=== PATIENT | female | born 1970 | race Caucasian/White ===

== ENCOUNTER 2023-06-26 14:00 | Outpatient (RCR) | payer OTHER, SELFPAY ==
--- NOTE | ~2023-06-26 | XR_ITS ---
EXAMINATION: XR CHEST CLINICAL INFORMATION: Preprocedural evaluation COMPARISON: None available. TECHNIQUE: 2 views of the chest were obtained. FINDINGS: Lungs clear. No pleural effusions. Heart and pulmonary vessels are normal. XR/XR chest 2V IMPRESSION: No active disease.
[2023-08-22 15:59] LABS: MANUAL DIFF FLAG NO
[2023-08-22 16:06] LABS: Basophils Percent Auto 0.7 % (0-2); Eosinophils Absolute Auto 0.3 X10*3/uL (0.0-0.4); Eosinophils Percent Auto 5.5 % (0-4); Hematocrit 28.7 % (37.0-47.0); Hemoglobin 9.1 g/dl (12.0-16.0); Imm Gran Abs Auto 0.02 X10*3/uL (0.00-0.03); Imm Gran Pct Auto 0.4 % (0.0-0.4); Lymphocytes Percent Auto 18.4 % (20-40); Mean Corpuscular HGB Conc 31.7 g/dl (31.0-35.0); Mean Corpuscular Hemoglobin 29.2 pg (27.0-33.0); Mean Platelet Volume 9.9 fL (9.4-12.3); Monocytes Absolute Auto 0.5 X10*3/uL (0.1-1.2); Monocytes Percent Auto 8.8 % (2-11); Neutrophils Absolute Auto 3.6 x10*3/uL (2.0-8.3); Neutrophils Percent Auto 66.2 % (45-73); Platelet Count 263 X10*3/uL (160-400); Red Blood Count 3.12 X10*6/uL (4.20-5.50); Red Cell Distribution Width 13.6 % (11.0-16.0); White Blood Count 5.4 X10*3/uL (4.8-10.8)
[2023-08-22 16:11] LABS: Estimated Average Glucose 103 mg/dL; Hemoglobin A1C 77.5992 umol/L; Hemoglobin A1c % 5.2 % (<6.0); Total Hemoglobin (HGBA1C) 2343.2653 umol/L
[2023-08-22 16:21] LABS: Anion Gap 10 (12-20); Blood Urea Nitrogen 13 mg/dL (9-16); C Reactive Protein 3.59 mg/dL (< or = 0.50); Calcium 8.5 mg/dL (8.4-10.2); Carbon Dioxide 29 mmol/L (22-29); Chloride 98 mmol/L (96-108); Estimated Glomerular Filt Rate > 60; Glucose Random 106 mg/dL (60-115); Potassium 3.7 mmol/L (3.3-5.1); Sodium 133 mmol/L (135-145)
[2023-08-22 16:42] LABS: Erythrocyte Sedimentation Rate 77 MM/HR (0-20)
== END 2024-06-06 14:08 | disposition home or self-care (01) ==
LOC: HO.WCC 14:00
PROVIDERS: PCP Registered Nurse; Visit Provider Physician Assistant
DX: L97.413 Non-pressure chronic ulcer of right heel and midfoot with necrosis of muscle (principal); M86.471 Chronic osteomyelitis with draining sinus, right ankle and foot; F11.20 Opioid dependence, uncomplicated; Z79.899 Other long term (current) drug therapy
CPT/HCPCS: 11042; 11044; 11045; 11047; 36415; 71046; 80048; 83036; 84134; 85025; 85652; 86140; 87070; 87073; 87077; 87186; 87205; 88304; 88305; 88311; 99183; 99212

== ENCOUNTER 2024-07-11 14:05 | Outpatient (REF) | payer OTHER, SELFPAY ==
--- NOTE | ~2024-07-11 | XR_ITS ---
CLINICAL HISTORY: M41.9 Three views of the lumbar spine. COMPARISON: None FINDINGS: Five wpu-msy-gcfeody lumbar type vertebral bodies. Normal vertebral body alignment. Vertebral body heights are maintained. No evidence of acute vertebral body injury. Small marginal osteophytes present throughout the lumbar spine. Type 2 coccyx. Widening of the sacrococcygeal joint. Visualized portions of the bones of the pelvis appear intact. Moderate colonic stool burden. IMPRESSION: 1. No radiographic evidence of acute injury to the lumbar spine. 2. Mild degenerative changes of the lumbar spine. 3. Widening of the sacrococcygeal joint space suggestive of remote injury. Recommend correlation clinically and with point tenderness. 4. Moderate colonic stool burden. This document has been electronically signed by: Blas Fraga MD on 07/14/2024 21:10:16
--- NOTE | ~2024-07-11 | XR_ITS ---
CLINICAL HISTORY: M41.9 Three views of the thoracic spine. COMPARISON: None FINDINGS: Clanton right curvature of the upper thoracic spine. Vertebral body heights are maintained. No evidence of acute vertebral body injury. Marginal osteophytes present throughout the thoracic spine. Mild Cardiomegaly. Chronic healed fracture deformities of multiple left sided ribs. IMPRESSION: 1. Clanton right curvature of the upper thoracic spine. 2. Wcuk-nw-mavhjezw multilevel degenerative changes of the thoracic spine. 3. Multiple healed left-sided rib fracture deformities. This document has been electronically signed by: Blas Fraga MD on 07/14/2024 20:12:34
--- OUTSIDE RECORDS SUMMARY | 2024-07-11 14:09 | XMS_ITS | Patient Health Record ---
Author Organization [facility] Talia meryl [place] Address [address] [facility] [place] [address] Care Team Providers Care Machine Repair Person Name Role Phone Lashell Garcia Primary Care Provider Jairo Dejesus Unavailable [phone] Allergies No Known Allergies Reason For Referral No Information Medications Medication SIG (Take, Route, Fr equency, Duration) Notes Start Date End Date Status Lisinopril 20 MG 1 tablet Orally Once a day Active Social History Tobacco Use: Social History Observation Description Date Details (start date - stop date) Never Smoker NA - NA Tobacco Use/Smoking Question Answer Notes Are you a: nonsmoker Additional Findings: Tobacco Non-User Current no n-smoker Alcohol Screen Question Answer Notes Did you have a drink containing alcohol in the p ast year? No Points 0 Interpretation Negative Problems Problem Type SNOMED Code ICD Code Onset Dates Problem Status W/U Status Risk Notes Problem Non-pressure chronic ulcer of other part of right foot with fat layer exposed (L97.512) Active confirmed Problem Non-pressure chronic ulcer of other part of left foot limited to breakdown of skin (L97.521) Active confirmed Problem 271178300 Lymphedema (I89.0) Active confirmed Problem 953134659 Malignant melanoma of right lower extremity including hip (C43.71) Active confirmed Problem [id number] Osteomyelitis o f right foot, unspecified type (M86.9) Active confirmed Plan Of Treatment Pending Test Test Name Order Date [id number] SKIN/TISSUE 04/19/2023 Insurance Providers Payer Name Payer Address Payer Phone Subscriber Number Group Number Insured Name Patient Relationship to Insured Coverage Start Date Coverage End Date [facility] [address] [place] [address] [id number] Sarah Everett Self - patient is the insured Medical (General) History Medical History History ICD Code Alzheimers disease Anemia Anxiety Back,Hip,and Knee pain Broken bones Depression High blood pressure Chicken pox
--- OUTSIDE RECORDS SUMMARY | 2024-07-11 14:09 | XMS_ITS ---
Author Organization [facility] Address [address] [place] [address] Care Team Providers Care Char Belt Operator Name Role Phone Lashell Garcia Primary Care Provider Jairo Dejesus Unavailable [phone] Allergies No Known Allergies REASON FOR VISIT Last PCP Visit: 11/2022, Foot pain, Open sore, Ulcer(s) Medications Medication SIG (Take, Route, Fr equency, [...] breakdown of skin (L97.521) Active confirmed Problem [id number] Osteomyelitis o f right foot, unspecified type (M86.9) Active confirmed Problem 879637170 Lymphedema (I89.0) Active confirmed Problem 974844100 Malignant melanoma of right lower extremity including hip (C43.71) Active confirmed Vital Signs Height 5 ft in 04/19/2023 Weight 168 lbs 04/19/2023 BMI 32.81 kg/m2 04/19/2023 Procedures Procedure Date Ordered Date Performed Result Body Sit e [id number] SKIN/TISSUE 04/19/2023 N/A Encounters Encounter Location Date Provider Diagnosis [facility] [address] [address] 04/19/2023 Jairo Osullivan Non-pressure chronic ulcer of other part of right foot with fat layer exposed L97.512 ; Non-pressure chronic ulcer of other part of left foot limited to breakdown of skin L97.521 ; Cellulitis of right lower limb L03.115 ; Osteomyelitis of right foot, unspecified type M86.9 ; Lymphedema I89.0 and Malignant melanoma of right lower extremity including hip C43.71 Assessments Encounter Date Diagnosis (ICD Code) Assessment Notes Treatment Notes Treatment Clinical Notes Section Notes 04/19/2023 Non-pressure chronic ulcer of other part of right foot with fat layer exposed (ICD-10 - L97.512) 04/19/2023 Non-pressure chronic ulcer of other part of left foot limited to breakdown of skin (ICD-10 - L97.521) 04/19/2023 Cellulitis of right lower limb (ICD-10 - L03.115) 04/19/2023 Osteomyelitis of right foot, unspecified type (ICD-10 - M86.9) 04/19/2023 Lymphedema (ICD-10 - I89.0) 04/19/2023 Malignant melanoma of right lower extremity including hip (ICD-10 - C43.71) Plan Of Treatment Pending Test Test Name Order Date [id number] SKIN/TISSUE 04/19/2023 Next Appt Details Follow Up: prn, Reason: Procedure Notes * Category Sub-Category Detail Notes Debride skin< 25 sq cm Open wound Open woun d selective debridement of fibrin, devitilized epidermis and/or dermis, exudate, using sterile sharp dissection, without use of anesthesia, with/without topical applications, wound assessment and instructions for ongoing care, Wound Care, The patient was instructed on importance of proper wound care consisting of pressure reduction, maintainance of moist wound environment, and regular debridement of devitilized tissue , The patient is to cleanse the wound with warm soapy water/peroxide/saline or betadine BID based on product availability , The patient is to apply Antibiotic Oint. to the wound and cover with a DSD , The patient was instructed to change dressings according to orders or PRN saturation, leaks, The patient was instructed to monitor and report any signs or symptoms of infection or any untoward reactions (81188) Debride skin and subQ Open wound Open wound selective debridement of devitalized soft tissue, fibrin, epidermis, dermis, thru skin and subcutaneous tissue, first 20 sq cm or less, using sterile sharp dissection. Pt. deferred anesthesia. Sterile antibiotic dressing applied, Wound Care, The patient was instructed on importance of proper wound care consisting of pressure reduction, maintainance of moist wound environment, and regular debridement of devitilized tissue, The patient is to cleanse the wound with warm soapy water/peroxide/saline or betadine BID based on product availability , The patient is to apply Antibiotic Oint. to the wound and cover with a DSD , The patient was instructed to change dressings according to orders or PRN saturation, leaks , The patient was instructed to monitor and report any signs or symptoms of infection or any untoward reactions (15121), Progress Notes * Sarah EVERETT PDOB: [birth year] (53 yo F)Acc No.[id number]:04/19/2023 Progress Notes Patient:?Sarah Everett P Provider:?Jairo Osullivan DPM :1970???Age:53 Y???Sex:Female D ate:04/19/2023 Address:[address] [place] [address] Pcp:Lashell Garcia Subjective: * Chief Complaints: * ??? Last PCP Visit: 11/2022Fo ot painOpen soreUlcer(s) * HPI: ???Foot Pain:?Nature:?tenderness , swelling , sharp.?Location?Bottom , Rearfoot , B/L , R>L.?Duration:?several months.?Onset/Cause:?unknown , denies trauma.?Course:?worse; became an open wound in past 3 weeks.?Aggrevated:?any pressure , standing , walking.?Treatments:?pt had been removing callous tissue herself and soaking, she started using neosporin and gauze dressings--changing daily when the wound appeared 3 weeks ago.?Quality/Severity?10 , scale 1-10.? * ROS:?General/Constitutional:?Nausea?denies, denies.?Vomiting?denies, denies.?Hunger Thirst?denies, denies.?Loss appetite?denies, denies.?Chills?denies, denies.?Fatigue?denies, denies.?Fever?denies, denies.?Night Sweats denies, denies.?Unexplained weight loss?denies, denies.?Unexplained weight gain?denies.?Ophthalmologic:?Blurred vision?denies.?Red eye?denies.?HEENTM:?Dentures?denies, denies.?Dizziness?denies, denies.?Glasses/contacts?denies, denies.?Retinopathy?denies, denies.?Blurred/double vision?denies, denies.?TMJ?denies, denies.?Discharge/drainage?denies, denies.?Implants?denies, denies.?Sore throat?denies.?Dental implants?denies.?Hard of hearing ?denies, denies.?Difficulty chewing/swallowing/speaking?denies, denies.?Nose bleeds?denies, denies.?Sore mouth?denies, denies.?Swollen glands?denies.?Respiratory:?On Oxygen?denies, denies.?Pneumonia/pleurisy?denies, denies.?Bronchitis?denies, denies.?Emphysema?denies, denies.?Coughing?denies, denies.?Cough blood?denies, denies.?Shortness of breath?denies, denies.?Wheezing?denies, denies.?Cardiovascular:?Pacemaker?denies, denies.?MVP?denies, denies.?WPW?denies, denies.?CHF?denies, denies.?Heart attack?denies, denies.?Septal defect?denies, denies.?Rapid beat?denies, denies.?Chest pain ?denies, denies.?Atrial Fib.?denies, denies.?Murmur/Palpitations?denies, denies.?Gastrointestinal:?Hemorrhoids?denies, denies.?Stomach/Abdominal pain?denies, denies.?Dark blood stool?denies, denies.?Irritable bowel ?denies, denies.?Constipation?denies, denies.?Diarrhea?denies, denies.?Vomiting?denies.?Hematology:?Swelling?denies, denies.?Clots?denies.?Varicose Veins?denies.?Bruising?denies, denies.?Bleeding problem?denies, denies.?Genitourinary:?Blood urine?denies, denies.?Frequent/Painfu/urination/bladder control?denies, denies.?Kidney stones?denies, denies.?Infection (UTI)?denies, denies.?Nephropathy?denies, denies.?sex trans dis (STD)?denies.?Prostate?denies.?Musculoskeletal:?Hammertoes?denies, denies.?Bunions?denies, denies.?Scoliosis/kyphosis?denies.?Back Pain?denies.?Muscle Cramps/ Resting?denies.?Muscle cramps / walking?denies, denies.?Generalized aches and pains?denies, denies.?Weakness?denies, denies.?Integ.:?Bowen?denies, denies.?Scars?denies, denies.?Corns/calluses?admits, denies.?Ingrown nails?denies, denies.?Painful nails?denies, denies.?Open Sores?denies.?Rashes?denies, denies.?Neurologic:?Difficulty sleeping?denies, denies.?Bipolar?denies.?Brain disorder?denies, denies.?Numbness?denies.?Balance trouble?denies, denies.?Confusion?denies, denies.?Fainting/blackouts?denies, denies.?Headache?denies.?Tingling?denies.?Tremors?denies, denies.? * Medical History:? * Surgical History:?Denies Pas t Surgical History * Hospitalization/Major Diagno stic Procedure:?Denies Past Hospitalization * Family History:?Mother: manuel galicia?Father: , diagnosed with Other malignant neoplasm of unspecified site.?Paternal Grand Mother: diagnosed with Family history of arthritis.?Paternal Grand Father: diagnosed with Diabetic - NIDDM.?Maternal Grand Father: diagnosed with Unspecified heart disease.? * Social History:?Tobacco Use:?Tobacco Use/Smoking?Are you a:?nonsmoker ?Additional Findings: Tobacco Non-User?Current non-smoker ???Drugs/Alcohol:?Drugs?Have you used drugs other than those for medical reasons in the past 12 months??No ?Alcohol Screen?Did you have a drink containing alcohol in the past year??No ?Points?0 ?Interpretation?Negative ???Miscellaneous:?Caffeine: yes, frequency:. ?no Children. ?Marital status: single. ?Occupation: [employer]. * Medications:?TakingLisinopri l 20 MG Tablet 1 tablet Orally Once a dayTaking Lisinopril 20 MG Tablet 1 tablet Orally Once a day * Allergies:?N.K.D.A.yes[Aller gies Verified] Objective: * Vitals:?Ht:5 ft, Wt:168, BMI :32.81, Shoe size: 8.5-9, Ht-cm: 152.4 cm, Wt-k.2 kg. * Examination: ???General Examination: ?GENERAL APPEARANCE:?pleasant, alert, well nourished, well developed, well hydrated, with good attention to hygene/body habitus, and in no acute distress.?ORIENTED:?person,place, and time.?Neurological: ?SENSORY:?Neurological exam is normal, pain sensation normal, vibration sensation intact, pinprick sensation is normal in the lower extremities, denies, tingling, burning, anesthesia, paresthesia, hyperesthesia, B/L.?TINEL'S COMPRESSION:?Negative tarsal tunnel, chema pedis, and medial calcaneal nerves B/L.?BABINSKI REFLEX:?absent.?Neuroma Pain: ?PALPATION:?No interspace pain noted on palpation.?Vascular: ?DP PULSES:?2/4, B/L.?PT PULSES:?0/4, B/L.?CAPILLARY FILL TIME:?delayed, all digits, B/L.?SKIN TEMPERTURE GRADIENT OF THE LOWER EXTERMITIES:?decreased, cool to cool, proximal to distal, B/L.?HAIR GROWTH/TEXTURE/ELASTICITY/TURGOR:?normal, B/L.?PIGMENTATION:?rubrous, right?, brawny, B/L.?EDEMA:?3/4 , non-pitting , Right , 1/4 , non-pitting , Left , Feet , Ankle(s) , Leg(s).?TELANGECTASIA:?absent.?VARICOSITIES:?absent.?Dermatologic: ?SKIN FINDINGS:?Skin exam reveals normal texture, elasticity, and tugor. There are no masses. The interspaces are clear, B/L .?ULCER:?LOCATION--plantar right heel, SIZE, 100mm X 70mm X 10-15mm deep, BASE, fibro-granular, RIM, hyperkeratotic, UNDERMINING, moderate, TRACKING, Sub Q with Fat layer exposed,NECROTIC TISSUE, loosely-adherent yellow slough, DRAINAGE, serous, moderate, MALODOR, absent, CALOR, absent, ERYTHEMA, moderate with pop side to side compression of right heel and minimal pop of ulceration directly ?LOCATION--plnatar left heel , SIZE, 10mm X 8mm X 2mm, BASE, fibrogranular, RIM, hyperkeratotic, UNDERMINING, absent, TRACKING, Full thickness breakdown of skin,NECROTIC TISSUE, loosely-adherent,yellow slough DRAINAGE, serous, mild, MALODOR, absent, CALOR, absent, ERYTHEMA, absent, PAIN ON PALPATION, absent.?Orthopedic: ?MUSCLE STRENGTH:?5/5 all groups in a symmetrical fashion , B/L.?GAIT ABNORMALITY:?pronated, abducted, B/L.?X-Rays - IMAGING REPORT: ?Views:?deferred due to need for immediate hospitalization for right heel ulcer and probable osteomyelitis right heel.? Assessment: * Assessment: 1.?Non-pressure chronic ulce r of other part of right foot with fat layer exposed - L97.512 (Primary)?2.?Non-pressure chronic ulcer of other part of left foot limited to breakdown of skin - L97.521?3.?Cellulitis of right lower limb - L03.115?4.?Osteomyelitis of right foot, unspecified type - M86.9?5.?Lymphedema - I89.0?6.?Malignant melanoma of right lower extremity including hip - C43.71? Plan: * Treatment: * Procedures:?Debride skin and subQ:?Open wound?Open wound selective debridement of devitalized soft tissue, fibrin, epidermis, dermis, thru skin and subcutaneous tissue, first 20 sq cm or less, using sterile sharp dissection. Pt. deferred anesthesia. Sterile antibiotic dressing applied, Wound Care, The patient was instructed on importance of proper wound care consisting of pressure reduction, maintainance of moist wound environment, and regular debridement of devitilized tissue, The patient is to cleanse the wound with warm soapy water/peroxide/saline or betadine BID based on product availability , The patient is to apply Antibiotic Oint. to the wound and cover with a DSD , The patient was instructed to change dressings according to orders or PRN saturation, leaks , The patient was instructed to monitor and report any signs or symptoms of infection or any untoward reactions (24485), .?Debride skin< 25 sq cm:?Open wound?Open wound selective debridement of fibrin, devitilized epidermis and/or dermis, exudate, using sterile sharp dissection, without use of anesthesia, with/without topical applications, wound assessment and instructions for ongoing care, Wound Care, The patient was instructed on importance of proper wound care consisting of pressure reduction, maintainance of moist wound environment, and regular debridement of devitilized tissue , The patient is to cleanse the wound with warm soapy water/peroxide/saline or betadine BID based on product availability , The patient is to apply Antibiotic Oint. to the wound and cover with a DSD , The patient was instructed to change dressings according to orders or PRN saturation, leaks, The patient was instructed to monitor and report any signs or symptoms of infection or any untoward reactions (10080).? * Procedure Codes:?80706 ACTIV E WOUND CARE/20 CM OR <78459 DEBRIDE SKIN/TISSUE, Modifiers: XS * Preventive Medicine:? ??Counseling:?Discussion:?-05: Office or other outpatient visit for the evaluation and management of a new patient, which required a medically appropriate history and/or examination and HIGH level of DECISION MAKING for: A SEVERELY WORSENING CHRONIC PROBLEM, OR AN ACUTE/CHRONIC PROBLEM THAT POSES A THREAT TO LIFE/LIMB THAT POSE A HIGH RISK FOR MORBIDITY/MORTALITY. THIS MAY INCLUDE A DECISION FOR HOSPITALIZATION OR TO A WOUND CLINIC FOR CARE. The visit on the day of the encounter encompassed interpreting the data and educating the patient as to the nature of their condition, treatment options available according to their individual PMH, meds, allergies, and overall health/living conditions, as well as any potential risks or complications that may occur from a failure to adhere to, and participate in, the recommended course of therapy. The discussion included a complete verbal, and/or written explanation of the examination results, any x-rays taken, the proposed diagnosis, and outline of the treatment plan. A schedule for future care needs was also explained. The patient verbalized an understanding of the instructions at this time and agreed to be an active participant in their treatment. If the patient should think of any questions or concerns after the visit, I have encouraged the patient to call the office--this patient requires immediate admission to hospital for wound cultures, mri, ID consult, podiatry consult, vascular consult and possible biopsy of wound right heel to evaluate for melanoma; pt states that she will not present to hospital until she is first seen by her PCP who she last saw in Nov, 2022. Pt is urged to go to be admitted today due to risk of right leg amputation and to NOT delay her care due to the severity of her condition.? * Follow Up:?prn * Images: * Sign off status: Completed true * Provider:?Jairo Osullivan DPM Date:? 023 Generated for Fiorella rios/Kassandra/Debaritting on:?07/11/2024 02:08 PM EST History and Physical Notes * HPI (History of Present Illness) Category Sub-Category Detail Notes Category Not es Foot Pain Aggrevated: any pressure , standing , wa lking Onset/Cause: unknown , denies tra veda Course: worse; became an ope n wound in past 3 weeks Duration: several months Nature: tenderness , swellin g , sharp Treatments: pt had been removing callous tissue herself and soaking, she started using neosporin and gauze dressings--changing daily when the wound appeared 3 weeks ago Quality/Severity 10 , scale 1-10 Location Bottom , Rearfoot , B/L , R>L Examination Category Sub-Category Detail Notes Category Not es Neuroma Pain PALPATION: No interspace pain noted on palpation Neurological SENSORY: Neurological exa m is normal, pain sensation normal, vibration sensation intact, pinprick sensation is normal in the lower extremities, denies, tingling, burning, anesthesia, paresthesia, hyperesthesia, B/L BABINSKI REFLEX: absent TINEL'S COMPRESSION: Negative tarsal alma keyonna, chema pedis, and medial calcaneal nerves B/L Dermatologic SKIN FINDINGS: Skin exam reveal s normal texture, elasticity, and tugor. There are no masses. The interspaces are clear, B/L ULCER: LOCATION--plantar ri ght heel, SIZE, 100mm X 70mm X 10-15mm deep, BASE, fibro-granular, RIM, hyperkeratotic, UNDERMINING, moderate, TRACKING, Sub Q with Fat layer exposed,NECROTIC TISSUE, loosely-adherent yellow slough, DRAINAGE, serous, moderate, MALODOR, absent, CALOR, absent, ERYTHEMA, moderate with pop side to side compression of right heel and minimal pop of ulceration directly LOCATION--plnatar left heel , SIZE, 10mm X 8mm X 2mm, BASE, fibrogranular, RIM, hyperkeratotic, UNDERMINING, absent, TRACKING, Full thickness breakdown of skin,NECROTIC TISSUE, loosely-adherent,yellow slough DRAINAGE, serous, mild, MALODOR, absent, CALOR, absent, ERYTHEMA, absent, PAIN ON PALPATION, absent Orthopedic GAIT ABNORMALITY: pronated, abducted, B/L MUSCLE STRENGTH: 5/5 all groups in a symmetrical fashion , B/L General Examination GENERAL APPEARANCE: pleasant , alert, well nourished, well developed, well hydrated, with good attention to hygene/body habitus, and in no acute distress ORIENTED: person,place, and ti me Vascular DP PULSES (B): 2/4, B/L PT PULSES (B): 0/4, B/L CAPILLARY FILL TIME: delayed, all digits , B/L TEMPERTURE GRADIENT (C): decreased, cool to cool, proximal to distal, B/L TROPHIC CONDITION-TEXTURE/ELASTICITY/TURGOR/HAIR GROWTH (B): normal, B/L EDEMA (C): 3/4 , non-pitting , Right , 1/4 , non-pitting , Left , Feet , Ankle(s) , Leg(s) TELANGECTASIA: absent VARICOSITIES: absent PIGMENTATION: rubrous, right , bra wny, B/L X-Rays - IMAGING REPORT Views: deferred due to need for immediate hospitalization for right heel ulcer and probable osteomyelitis right heel
== END 2024-07-11 14:06 | disposition home or self-care (01) ==
LOC: HO.HMGCX 14:05
PROVIDERS: PCP Registered Nurse; Visit Provider Registered Nurse
DX: M41.9 Scoliosis, unspecified (principal)
CPT/HCPCS: 72070; 72100

== ENCOUNTER → 2024-07-11 14:14 | Outpatient (BNV) | payer OTHER, SELFPAY | PROVIDERS: PCP Registered Nurse; Visit Provider Radiology Diagnostic Radiology | DX: M51.369 Other intervertebral disc degeneration, lumbar region without mention of lumbar back pain or lower extremity pain (principal); M51.34 Other intervertebral disc degeneration, thoracic region | CPT/HCPCS: 72070; 72100 ==

== ENCOUNTER 2024-09-10 11:40 | Outpatient (REF) | payer OTHER, SELFPAY ==
--- NOTE | ~2024-09-10 | XR_ITS ---
EXAMINATION: XR KNEE, LEFT CLINICAL INFORMATION: M25.562 - Pain in left knee COMPARISON: None available. TECHNIQUE: Four views of the left knee. FINDINGS: Inadequate AP projection. There is sclerotic deformity with volume loss involving the lateral tibial plateau. There is joint space narrowing involving mostly the lateral compartment, left knee. There is a varus deformity. No suprapatellar bursa joint effusion. There is joint space narrowing involving the medial compartment of the right knee with the sclerosis of the articular surface of the medial tibial plateau. XR/XR knee LT 3V IMPRESSION: Severe osteoarthrosis, lateral compartment left knee resulting in varus deformity and impacted femoral tibial joint. Medial compartment osteoarthrosis, right knee. Incomplete evaluation. Electronically signed by: Ahmet Bhatia MD 09/11/2024 08:16 AM [facility]
--- OUTSIDE RECORDS SUMMARY | 2024-09-10 14:43 | XMS_ITS ---
Author Organization [facility] Address [address] [place] [id number] Care Team Providers Care Therapeutic Assistant Name Role Phone NAOMIE THOMAS Primary Care Provider REASON FOR VISIT Please call PT 07/17/24 Encounters Encounter Location Date Provider Diagnosis [address] [id number] 07/10/2024 NAOMIE THOMAS PLAN OF TREATMENT No Information Progress Notes * SHENG NYOB: 1 (54 yo F)Acc No.[id number]:07/10/2024 Patient:??BERTRAM [place] :1970?Age:54 Y?Sex:Fe male Phone: Address:[address] [place] [address] * true * Date:??
--- OUTSIDE RECORDS SUMMARY | 2024-09-10 14:44 | XMS_ITS ---
Author Organization [facility] Address [address] [place] [id number] Care Team Providers Care Air Traffic Coordinator Name Role Phone NAOMIE THOMAS Primary Care Provider REASON FOR VISIT email order Encounters Encounter Location Date Provider Diagnosis [address] [id number] 07/10/2024 NAOMIE THOMAS PLAN OF TREATMENT No Information Progress Notes * SHENG NYOB: 1 (54 yo F)Acc No.[id number]:07/10/2024 Patient:??BERTRAM [place] :1970?Age:54 Y?Sex:Fe male Phone: Address:[address] [place] [id number] * true * Date:??
--- OUTSIDE RECORDS SUMMARY | 2024-09-10 14:44 | XMS_ITS ---
Author Organization [facility] Address [address] [place] [id number] Care Team Providers Care Labor Relations Or Personnel Negotiator Name Role Phone NAOMIE THOMAS Primary Care Provider [phone] REASON FOR VISIT Refills MEDICATIONS Medication SIG (Take, Route, Frequency, Duration) Notes Start Date End Date Status Vitamin D (Cholecalciferol) 50 MCG (1999 UT) 1 capsule Orally Once a day for 90 days 08/27/2024 09/26/2024 Active Ondansetron 8 MG 1 tablet on the tong ue and allow to dissolve as needed Orally once or twice a day for 30 days 07/10/2024 Active Encounters Encounter Location Date Provider Diagnosis [address] [phone] 08/26/2024 NAOMIE THOMAS Nausea R11.0 ASSESSMENTS Encounter Date Diagnosis Assessment Notes Treatment Notes Treatment Clinical Notes Section Notes 08/26/2024 Nausea (ICD-10 - R11.0) PLAN OF TREATMENT Medication Medication Name Sig Start Date Stop Date Notes Vitamin D (Cholecalciferol) 50 MCG (1999 UT) 1 capsule Orally Once a day for 90 days 08/27/2024 09/26/2024 Ondansetron 8 MG 1 tablet on the tong ue and allow to dissolve as needed Orally once or twice a day for 30 days 07/10/2024 Progress Notes * SHENG NYOB: 1 (54 yo F)Acc No.[id number]:08/26/2024 Patient:??YANELY BERTRAM :1970?Age:54 Y?Sex:Fe male Phone: Address:[address] [place] [phone] * Refills?? Refill Ondansetron Tablet Disintegrating, 8 MG, Orally, 60, 1 tablet on the tongue and allow to dissolve as needed, once or twice a day, 30 days, Refills=3 Start Vitamin D (Cholecalciferol) Capsule, 50 MCG (1999 UT), Orally, 90 Capsule, 1 capsule, Once a day, 90 days, Refills=3 * true * Date:??
--- OUTSIDE RECORDS SUMMARY | 2024-09-10 14:44 | XMS_ITS ---
Author Organization [facility] Address [address] [place] [address] Care Team Providers Care Acute Care Nurse Name Role Phone Lashell Garcia Primary Care Provider Jairo Dejesus Unavailable [phone] Allergies No Known Allergies REASON FOR VISIT [...] breakdown of skin (L97.521) Active confirmed Problem [id number] Osteomyelitis o f right foot, unspecified type (M86.9) Active confirmed Problem 139537485 Lymphedema (I89.0) Active confirmed Problem 275561372 Malignant melanoma of right lower extremity including hip (C43.71) Active confirmed Vital Signs Height 5 ft in 04/19/2023 Weight 168 lbs 04/19/2023 BMI 32.81 kg/m2 04/19/2023 Procedures Procedure Date Ordered Date Performed Result Body Sit e [id number] SKIN/TISSUE 04/19/2023 N/A Encounters Encounter Location Date Provider Diagnosis [facility] [address] [address] 04/19/2023 Jairo Osullivan Non-pressure chronic ulcer of [...] Treatment Pending Test Test Name Order Date [id number] SKIN/TISSUE 04/19/2023 Next Appt Details Follow Up: [...] symptoms of infection or any untoward reactions (20165) Debride skin and subQ Open wound Open [...] symptoms of infection or any untoward reactions (69901), Progress Notes * Sarah EVERETT PDOB: [birth year] (53 yo F)Acc No.[id number]:04/19/2023 Progress Notes Patient:?Sarah Everett P Provider:?Jairo Osullivan DPM :1970???Age:53 Y???Sex:Female D ate:04/19/2023 Address:[address] [place] [address] Pcp:Lashell Garcia Subjective: * Chief Complaints: * [...] frequency:. ?no Children. ?Marital status: single. 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 * Medications:?TakingLisinopri l 20 MG Tablet 1 [...] symptoms of infection or any untoward reactions (09956), .?Debride skin< 25 sq cm:?Open wound?Open wound [...] symptoms of infection or any untoward reactions (44755).? * Procedure Codes:?81532 ACTIV E WOUND CARE/20 CM OR <42433 DEBRIDE SKIN/TISSUE, Modifiers: XS * Preventive Medicine:? [...] Osullivan DPM Date:? 023 Generated for Fiorella rios/Kassandra/Debraitting on:?09/10/2024 02:44 PM EST History and Physical Notes * [...]
--- OUTSIDE RECORDS SUMMARY | 2024-09-10 14:44 | XMS_ITS | Clinical Summary ---
Author Organization [facility] it Address [address] [place] [address] Care Team Providers Care Escrow Secretary Name Role Phone Lashell Garcia NP Primary Care Provider [phone] Social History Tobacco Use Types Packs/Day Years Used Date Smoking Tobacco: Never Assessed Comments Unknown Sex and Gender Information Value Date Recorded Sex Assigned at Not on file Legal Sex Female 11:00 PM EST Gender Identity Not on file Sexual Orientation Not on file Plan of Treatment Health Maintenance Due Date Last Done Comments Breast Cancer Screening 1970 DTaP,Tdap,and Td Vaccines (1 - Tdap) 1990 Hepatitis B Vaccines (1 of 3 - 19+ 3-dose series) 1990 Cervical Cancer Screening: P ap Smear 02/16/1992 Pneumococcal Vaccine: 50+ Ye ars (1 of 1 - PCV) 2021 Zoster Vaccines (1 of 2) 2021 Colorectal Cancer Screening: Colonoscopy 03/10/2024 Depression Screening 03/10/2024 HIV Screening 03/10/2024 Hepatitis C Screening 03/10/2024 Social Influencers of Health Screening 03/10/2024 COVID-19 Vaccine ( - 2023-2 5 season) 2024 Influenza Vaccine (#1) 2024 HIB Vaccines Aged Out No longer eligi ble based on patient's age to complete this topic HPV Vaccines Aged Out No longer eligi ble based on patient's age to complete this topic Hepatitis A Vaccines Aged Out No long er eligible based on patient's age to complete this topic IPV Vaccines Aged Out No longer eligi ble based on patient's age to complete this topic MMR Vaccines Aged Out No longer eligi ble based on patient's age to complete this topic Meningococcal ACWY Vaccine Aged Out N o longer eligible based on patient's age to complete this topic Meningococcal B Vacine Aged Out No lo nger eligible based on patient's age to complete this topic Pneumococcal Vaccine: Pediat rics (0 to 5 Years) and At-Risk Patients (6 to 64 Years) Aged Out No longer eligible b ased on patient's age to complete this topic RSV Immunization Patients Un abimbola 20 months Aged Out No longer eligible b ased on patient's age to complete this topic Varicella Vaccines Aged Out No longer eligible based on patient's age to complete this topic Care Teams Escrow Secretary Relationship Specialty Start Date End Date Lashell Garcia NP [address] [place], [place] [address] PCP - General 10/10/23
--- OUTSIDE RECORDS SUMMARY | 2024-09-10 14:45 | XMS_ITS | Patient Health Record ---
Author Organization [facility] Talia meryl Allred Address [address] [facility] [place] [address] Care Team Providers Care Campus Receptionist Name Role Phone Lashell Garcia Primary Care Provider Jairo Dejesus Unavailable [phone] Allergies No Known Allergies Reason For Referral [...] breakdown of skin (L97.521) Active confirmed Problem 800579897 Lymphedema (I89.0) Active confirmed Problem 845956589 Malignant melanoma of right lower extremity including hip (C43.71) Active confirmed Problem 3184096641422794 Osteomyelitis o f right foot, unspecified type (M86.9) Active confirmed Plan Of Treatment Pending Test Test Name Order Date [id number] SKIN/TISSUE 04/19/2023 Insurance Providers Payer Name Payer Address Payer Phone Subscriber Number Group Number Insured Name Patient Relationship to Insured Coverage Start Date Coverage End Date [facility] [address] [place] [phone] [id number] Sarah Everett Self - patient is the insured Medical (General) History Medical History History ICD Code Alzheimers disease Anemia Anxiety Back,Hip,and Knee pain Broken bones Depression High blood pressure Chicken pox
== END 2024-09-10 11:41 | disposition home or self-care (01) ==
LOC: HO.HOSX 11:40
PROVIDERS: Visit Provider Physician Assistant
DX: M25.562 Pain in left knee (principal); M17.32 Unilateral post-traumatic osteoarthritis, left knee; M17.0 Bilateral primary osteoarthritis of knee
CPT/HCPCS: 73562; 99202

== ENCOUNTER 2024-09-10 15:12 | Outpatient (AMB) | payer OTHER, SELFPAY ==
--- NOTE | 2024-09-10 15:32 | MHC.OFFVIS ---
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 Patient reports intermittent pain since last spring that has recently gotten worse. She had a foot surgery and while in the hospital she had a knee x-ray which showed a higgins cyst and arthritis. She followed with [facility] who told her that she would need a replacement. She is here for a second opinion. She received a cortisone injection last Sunday however this has not helped. 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 She is here as a second opinion, she was seen at [facility] last week for her knee and was told she needed a knee replacement but did not feel well supported during her visit. She states she was given a steroid injection at that appt with little to no relief. She states she does not recall a specific injury to the left knee, but she does recall last spring she was using her scooter and it became stuck and she felt pain in the knee. She felt it was a strained muscle. She states she was able to weight bear after the incident but noticed ongoing pain. The pain is limiting her ability to perform daily activities and walk long distances. She uses a walker to help with ambulation due to her foot and knee. She is s/p right foot debridement with Dr portillo Apr 2024 at [facility] which did cause her to put more stress on the left knee. She states currently the wound ont he foot is healed and no longer on abx. 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 She states she does not have PCP but has been looking for one. PFSH Surgical History (Updated 09/10/24 @ 15:36 by WAYLON Whitfield) Hx of foot surgery Hx of removal of cyst Social History (Updated 09/10/24 @ 16:47 by Kristine Valero PA-C) Alcohol intake: never Patient Tobacco Use Status: Never used Tobacco Use of substances other than those prescribed or required for medical reasons: Yes Substance Use Type: Heroin Substance Use Type Other:: H/o Heroin use-last used 04/2024-on methadone Last Used Substance Other:: 04/2024 Current occupational status: unemployed Review of Systems Const All systems reviewed & are unremarkable except as noted in HPI and below Physical Exam Vital Signs: BMI result Body Mass Index 28.3 Const General: cooperative and no acute distress Orientation/consciousness: patient oriented x3 Resp Effort & Inspection: normal respiratory effort and able to speak in complete sentences Cardio Peripheral pulses: Peripheral pulses 2+ throughout Neuro General: patient oriented x3 Extrem Other: Left knee skin intact, severe valgus deformity. Full ROM. Calf supple non tender, NVI Results Reviewed Results Reviewed: Xrays were obtained in the office today and personally reviewed by me of the left knee show severe post traumatic oa with valgus deformity Assessment & Plan Assessment & Plan (1) Unilateral post-traumatic osteoarthritis, left knee: Code(s): M17.32 - Unilateral post-traumatic osteoarthritis, left knee Category: Medical Plan: I had a lengthy discussion with the patient about the extent of her OA and options available. Since she did have an injection last week, we would need to hold off on any type of TKA surgery for three months. I did give her the contact information at [address] to obtain a PCP. I explained the process to optimize her for surgery which included PCP clearance. I did order a CT scan to further evaluate the extent of her OA. We discussed her history with drug use. I explained the risk associated with drug use and joint replacement which include but is not limited to infection. She expressed understanding. Once the CT scan has been obtained, I will have our office reach out to her to determine the next step in her treatment plan which ideally would be to proceed with LT TKA. She is content with this plan and will proceed accordingly. Orders: Orders XR knee LT 3V Today M25.562 - Pain in left knee XR knee RT 1V Today M25.561 - Pain in right knee CT knee LT wo IV con Today M17.32 - Unilateral post-traumatic osteoarthritis, left knee Coding Level of Care Code New Pt Level 4 (28581) Complex EM visit Add On G2211 Diagnoses Unilateral post-traumatic osteoarthritis, left knee M17.32
[2024-09-10 15:34] VITALS: BMI 28.3
--- OUTSIDE RECORDS SUMMARY | 2024-09-10 18:46 | XMS_ITS | Clinical Summary ---
Author Organization [facility] it Address [address] [place] [address] Care Team Providers Care Generator Switchboard Operator Name Role Phone Lashell Garcia NP Primary Care Provider [phone] Social History Tobacco Use Types Packs/Day Years [...] age to complete this topic Care Teams Generator Switchboard Operator Relationship Specialty Start Date End Date Lashell Garcia NP [address] [place], [place] [address] PCP - General 10/10/23
--- OUTSIDE RECORDS SUMMARY | 2024-09-10 18:46 | XMS_ITS | Patient Health Record ---
Author Organization [facility] Address [address] [place] [id number] Care Team Providers Care Pediatric Cns Name Role Phone NAOMIE THOMAS Primary Care Provider [phone] ANSELMO DSOUZA Unavailable [phone] ALLERGIES Allergen (clinical drug ingredient) Drug/Non Drug Allergy documented on EMR Reaction Allergy Type Onset Date Status hydroxyzine hydrOXYzine HCl Hives Drug Allergy Active RESULTS Component Value Reference Range Notes URINALYSIS, COMPLETE W/REFLE X TO CULTURE (7720) Reviewed date:02/28/2024 09:27:08 AM Interpretation: Performing Lab:NL2, Process Relations [facility] [id number] [place], [place] [id number] Cash Saxena Notes/Report: NON-FASTING; NON-FASTING NON-FASTING; NON-FASTING COLOR YELLOW YELLOW APPEARANCE CLEAR CLEAR SPECIFIC GRAVITY 1.018 1.001-1.035 PH 5.5 5.0-8.0 GLUCOSE NEGATIVE NEGATIVE BILIRUBIN NEGATIVE NEGATIVE KETONES NEGATIVE NEGATIVE OCCULT BLOOD TRACE NEGATIVE PROTEIN NEGATIVE NEGATIVE NITRITE NEGATIVE NEGATIVE LEUKOCYTE ESTERASE NEGATIVE NEGATIVE WBC NONE SEEN < OR = 5 /HPF RBC 3-10 < OR = 2 /HPF SQUAMOUS EPITHELIAL CELLS NONE SEEN < OR = 5 /HPF BACTERIA NONE SEEN NONE SEEN /HPF HYALINE CAST NONE SEEN NONE SEEN /LPF NOTE This urine was analyzed for the presence of WBC, RBC, bacteria, casts, and other formed elements. Only those elements seen were reported. REFLEXIVE URINE CULTURE NO C ULTURE INDICATED REASON FOR REFERRAL Reason Please refer to [facility] in [place], was seeing Sarah over there as her PT and would like to see her again if possible, thank you! Diagnosis 1 Cervical disc disord er at C5-C6 level with myelopathy (M50.022) Referral Organization [facility] Referring Provider First Name NAOMIE Referring Provider Last Name FACKLER Referring Provider Speciality Nurse Prac titioner Ref[facility] Referred Address [address] [place], [place] [address]ZUL[place]AN,[place],[id number],[place] Referred Provider Specialty Physical Med icine and Rehabilitation General Notes MABEL DYLON 0 01/29/2024 02:48:14 PM >order form completed- waiting to be scanned into chart, MABEL DYLON 01/30/2024 08:39:53 AM >order faxed to [facility] [phone] Referral Priority Routine MEDICATIONS Medication SIG (Take, Route, Frequency, Duration) Notes Start Date End Date Status Acetaminophen Extra Strength 500 MG 1 tablet as needed Orally every 6 hrs for 90 days 04/01/2024 Active Naproxen 500 MG 1 tablet with food o r milk as needed Orally every 12 hrs for 90 days 08/23/2023 Not-Taking Doxycycline Hyclate 100 MG 1 capsule Orally Twice a day for 90 days Not-Taking LORazepam 0.5 MG 1 tab Orally twice a day for 90 days 07/10/2024 Active Iron 325 (65 Fe) MG 1 tablet Orally Thre e times a Week Active Losartan Potassium-HCTZ 50-12.5 MG 1 tablet Orally Once a day for 90 days 04/01/2024 Active Probiotic Not-Taking Ibuprofen 600 MG TAKE 1 TABLET WITH FOOD OR MILK NEEDED THREE TIMES A DAY NEEDED FOR 30 DAYS Orally Three times a day for 90 days 01/06/2025 Active Amoxicillin-Pot Clavulanate 875-125 MG TAKE 1 TABLET BY MOUTH EVERY 12 HOURS FOR 30 DAYS for 30 Active Lisinopril 40 MG 1 tablet Orally Once a day for 90 days Active Doxycycline Monohydrate 100 MG TAKE 1 CAPSULE BY MOUTH EVERY 12 HOURS FOR 30 DAYS. for 30 Active Baclofen 20 MG 1 tablet Administer without regards to meals as needed Orally Twice a day for 30 days 01/07/2024 Active Vitamin D (Cholecalciferol) 50 MCG (2000 UT) 1 capsule Orally Once a day for 90 days 08/27/2024 09/26/2024 Active Ondansetron 8 MG 1 tablet on the tongue and allow to dissolve as needed Orally once or twice a day for 30 days 07/10/2024 Active IMMUNIZATIONS Vaccine Route Administration Date Status Comme nts Tdap Unknown 01/24/2019 Administered SOCIAL HISTORY Tobacco Use: Social History Observation Description Date Details (start date - stop date) Never Smoker NA - NA Sex Assigned At : Social History Observation Description Sex Assigned At Unknown Tobacco Use/Smoking Question Answer Notes Tobacco use: nonsmoker Section Notes: Lives in [place], [place] wi th roommate ( ex-boyfriend/best friend ) Lives [place] roommate ( ex-boyfriend/best friend ) Lives [place] roommate ( ex-boyfriend/best friend ) [place] room[place] ( ex-boyfriend/best friend ) [place] ( ex-boyfriend/best friend ) [place] ( ex-boyfriend/best friend ) [place] ( ex-boyfriend/best friend ) [place] room[place] ( ex-boyfriend/best friend ) [place] room[place] ( ex-boyfriend/best friend ) [place] room[place] ( ex-boyfriend/best friend ) [place] room[place] ( ex-boyfriend/best friend ) [place] room[place] ( ex-boyfriend/best friend ) [place] room[place] ( ex-boyfriend/best friend ) [place] room[place] ( ex-boyfriend/best friend ) [place] room[place] ( ex-boyfriend/best friend ) [place] room[place] ( ex-boyfriend/best friend ) [place] room[place] ( ex-boyfriend/best friend ) [place] roommate ( ex-boyfriend/best friend ) [place] roommate ( ex-boyfriend/best friend ) Lives [place] roommate ( ex-boyfriend/best friend ) Lives in [place] roommate ( ex-boyfriend/best friend ) Lives in [place], [place] wi th roommate ( ex-boyfriend/best friend ) Lives in [place], [place] wi th roommate ( ex-boyfriend/best friend ) PROBLEMS Problem Type ICD Code Onset Dates Problem Status W/U Status Risk SNOMED Code Notes Problem Obesity, unspecified (E66.9) 01/25/20 19 Active confirmed Obesity (disorde r) (390859020) Problem Opioid dependence with unspecified opioid-induced disorder (F11.29) Active confirmed Problem Generalized anxiety disorder (F41.1) 01/25/20 19 Active confirmed Generalized anxiety disorder (disorder) (25602962) Problem Insomnia, unspecified (G47.00) 03/14/20 19 Active confirmed Insomnia (disorder) (940496261) Problem Essential (primary) hypertension (I10) Active confirmed Essential hypertension (66956483) Problem Pressure ulcer of right heel, unstageable (L89.610) Active confirmed Unstageable pressure injury of right heel (disorder) (47614607926740152 ) Problem Dysplasia of cervix uteri, unspecified (N87.9) 03/31/20 14 Active confirmed Dysplasia of cervix (disorder) (86053667) Problem Syncope and collapse (R55) Active confirmed 346734321 Problem Hypertensive crisis, unspecified (I16.9) Active confirmed 460012072 Problem Cervical disc disorder at C5-C6 level with myelopathy (M50.022) Active confirmed Intervertebral disc disorder of cervical region with myelopathy (17550513) Problem Obesity (BMI 30.0-34.9) (E66.9) Active confirmed 260477384091257 Problem Anxiety (F41.9) Active confirmed Anxiet y (77352385) Problem Abnormal blood cell count (R79.9) Active confirmed 603625659 Problem Cocaine abuse (F14.10) Active confirmed 80923995 Problem Elevated brain natriuretic peptide (BNP) level (R79.89) Active confirmed 052559538 Problem Opiate use (F11.90) Active confirmed 49634281 Problem Pain of left calf (M79.662) Active confirmed Pain of left calf (7215909963578341) Problem Newly recognized heart murmur (R01.1) Active confirmed VITAL SIGNS Heart Rate 91 /min 04/01/2024 Height-cm 156.21 cm 06/05/2024 Oximetry 97 % 04/01/2024 Blood pressure diastolic 90 mm Hg 04/01/2024 Weight-kg 62.78 kg 04/01/2024 Height 61.5 in 06/05/2024 Blood pressure systolic 160 mm Hg 04/01/2024 Weight 138.4 lbs 04/01/2024 BMI 25.72 kg/m2 04/01/2024 Encounters Encounter Location Date Provider Diagnosis [address] [id number] 12/19/[address] [id number] 01/01/2024 NAOMIE THOMAS [address] [id number] 11/21/2023 NAOMIE THOMAS Generalized anxiety disorder F41.1 ; Essential (primary) hypertension I10 and Anxiety F41.[address] [id number] 01/07/2024 NAOMIE THOMAS Muscle spasms of nec k M62.838 and Cervical disc disorder at C4-C5 level with radiculopathy M50.[address] [id number] 01/29/2024 NAOMIE THOMAS Essential (primary) hypertension I10 ; Opioid dependence with unspecified opioid-induced disorder F11.29 ; Pressure ulcer of right heel, unstageable L89.610 ; Onycholysis of toenail L60.1 and Cervical disc disorder at C4-C5 level with radiculopathy M50.[address] [id number] 02/27/2024 NAOMIE THOMAS Opiate use F11.90 ; Cocaine abuse F14.10 ; Essential (primary) hypertension I10 ; Opioid dependence with unspecified opioid-induced disorder F11.29 and Dysuria R30.[address] [id number] 04/01/2024 NAOMIE THOMAS Pressure ulcer of right heel, unstageable L89.610 ; Opioid dependence with unspecified opioid-induced disorder F11.29 and Essential (primary) hypertension I10 [address] [id number] 06/05/2024 NAOMIE THOMAS Pressure ulcer of right heel, unstageable L89.610 ; Essential (primary) hypertension I10 and Bakers cyst, right M71.21 [facility] [address] [facility] [place], [place] [id number] 07/10/2024 NAOMIE THOMAS Low back pain, unspecified M54.50 ; Muscle spasm of back M62.830 ; Essential (primary) hypertension I10 ; Pressure ulcer of right heel, unstageable L89.610 ; Generalized anxiety disorder F41.1 and Nausea R11.0 [facility] [address] [facility], [place] [id number] 09/28/2023 [facility] [address] [facility], [place] [id number] 10/23/2023 [facility] Anxiety F41.9 [facility] [address] [facility], [place] [id number] 11/12/2023 [facility] [address] [facility], [place] [id number] 12/03/2023 NAOMIE THOMAS Anxiety F41.9 [facility] [address] [facility], [place] [id number] 12/24/2023 [facility] [address] [facility], [place] [id number] 01/11/[address] [facility] [address] [facility] [place], [place] [id number] 01/16/2024 [facility] [address] [facility] [place] [id number] 01/25/2024 NAOMIE THOMAS Essential (primary) hypertension 0 [facility] [address] [facility] [place] [id number] 03/14/2024 [facility] [address] [facility], [place] [id number] 05/16/2024 [facility] [address] [facility], [place] [id number] 06/15/2024 NAOMIE THOMAS Anxiety F41.9 and Essential (primary) hypertension 0 [facility] [address] [facility] [place] [id number] 06/23/[address] [id number] 06/26/2024 NAOMIE THOMAS Scoliosis of thoracolumbar spine, unspecified scoliosis type M41.[address] [id number] 07/07/2024 NAOMIE THOMAS [address] [id number] 07/10/[address] [id number] 07/10/[address] [id number] 08/26/2024 NAOMIE THOMAS Nausea R11.0 ASSESSMENTS Encounter Date Diagnosis Assessment Notes Treatment Notes Treatment Clinical Notes Section Notes 08/26/2024 Nausea (ICD-10 - R11.0) 07/10/2024 Muscle spasm of back (ICD-10 - M62.830) 07/10/2024 Low back pain, unspecified (ICD-10 - M54.50) 06/26/2024 Scoliosis of thoracolumbar spine, unspecified scoliosis type (ICD-10 - M41.9) 06/15/2024 Anxiety (ICD-10 - F41.9) 06/05/2024 Essential (primary) hypertension (ICD-10 - I10) 120/60's being checked by PT/OT and they stopped the lisinopril as her pressures have improved. We will continue the losartan and refill her meds 06/05/2024 Pressure ulcer of right heel, unstageable (ICD-10 - L89.610) Recently discharged from hospital, there for a month as they could not find a rehab to send her to.. She had a surgical debridement of her chronic heel wound. Her pain is there but she is managing. She is getting PT/OT in home now and surgeon is very pleased with the results according to pt. 04/01/2024 Opioid dependence with unspecified opioid-induced disorder (ICD-10 - F11.29) Under care of [facility]-will be seen there Sunday and will likely have her dose adjusted 04/01/2024 Pressure ulcer of right heel, unstageable (ICD-10 - L89.610) Having surgery 04/09/24-was told to stop NSAIDs 10 days prior but took ibuprofen today d/t pain. She is looking for alternatives and she is not a candidate for opioid analgesics given she is on methadone, suggested to contact the surgeon's office to find out what she can take. 02/27/2024 Cocaine abuse (ICD-10 - F14.10) 02/27/2024 Opiate use (ICD-10 - F11.90) Clinic does know she has been using, she is seeing the clinician next sunday and will discuss in patient detox 01/29/2024 Opioid dependence with unspecified opioid-induced disorder (ICD-10 - F11.29) She has started using heroin again, will be seeing Carlo tomorrow-will be discussing methadone vs suboxone. I will continue to see Sarah monthly 01/29/2024 Essential (primary) hypertension (ICD-10 - I10) She is still using cocaine, we discussed the impact this has on her HTN, 01/25/2024 Essential (primary) hypertension (ICD-10 - I10) 01/07/2024 Cervical disc disorder at C4-C5 level with radiculopathy (ICD-10 - M50.121) We would have applied the Zynex today but she had an appointment and did have the time today. We will submit order so she can have this at home. 01/07/2024 Muscle spasms of neck (ICD-10 - M62.838) 11/21/2023 Generalized anxiety disorder (ICD-10 - F41.1) Really struggling, message sent to K.Hakeem from [facility] to expedite urgent referral 11/21/2023 Essential (primary) hypertension (ICD-10 - I10) always runs elevated but is normal at home and with other practices, we will not make any changes Labs today while here 10/23/2023 Anxiety (ICD-10 - F41.9) 12/03/2023 Anxiety (ICD-10 - F41.9) 02/27/2024 Essential (primary) hypertension (ICD-10 - I10) Has been improving, we will continue her current meds/dose 11/21/2023 Anxiety (ICD-10 - F41.9) 01/29/2024 Pressure ulcer of right heel, unstageable (ICD-10 - L89.610) Scooter is making her neck extremely painful and now causing conctracture of her left hand, recommend stopping 04/01/2024 Essential (primary) hypertension (ICD-10 - I10) Encouraged DASH diet We will add losartan 50 mg as she continues to not well controlled 06/05/2024 Bakers cyst, right (ICD-10 - M71.21) Will be seeing ortho tomorrow and hopeful it will be drained as it is quite painful. She is offloading d/t the surgery so it complicating matters for her 06/15/2024 Essential (primary) hypertension (ICD-10 - I10) 07/10/2024 Essential (primary) hypertension (ICD-10 - I10) She stopped the losartan/HCTZ combo, states she was waking to void, and voiding all day long which is too disruptive. She is still taking lisinopril. She does have a BP cuff she just purchased based on our previous conversation but has not started checking yet. She was encouraged to do so but she is having tremendous back pain today as well so her focus will be to get the pain under control prior to taking her BP 07/10/2024 Pressure ulcer of right heel, unstageable (ICD-10 - L89.610) She is post-op, healing well with homecare services in place 02/27/2024 Opioid dependence with unspecified opioid-induced disorder (ICD-10 - F11.29) 01/29/2024 Onycholysis of toenail (ICD-10 - L60.1) 01/29/2024 Cervical disc disorder at C4-C5 level with radiculopathy (ICD-10 - M50.121) 02/27/2024 Dysuria (ICD-10 - R30.0) dip was negative in office, does have 1+ blood, will reflex to microscopic and culture, in the meantime, eat blueberries, drink plenty of water, consider vitamin c 500 mg three times a day for the next 3 days. Call right away if flank pain or fever develops. 07/10/2024 Generalized anxiety disorder (ICD-10 - F41.1) Currently exacerbated d/t back pain but prior states she was well controlled 07/10/2024 Nausea (ICD-10 - R11.0) 11/21/2023 Other We will send urgent request for therapy at [facility] Total time spent with patient 32 minutes which includes face to face visit, education and coordination of care. Wound is under care of wound clinic and she is seen there weekly, bone involvement will require surgical intervention 04/01/2024 Other Total time spen t with patient 32 minutes which includes face to face visit, education and coordination of care. 06/05/2024 Other Will need to find a new PCP d/t insurance and [facility] will not allow her to stay with us. She is hopeful this will only be temporary. I will resume her care if she is able to get on another plan as most plans are allowed. She will let us know where to transfer her records to once she finds a PCP in network Total time spent with patient 32 minutes which includes face to face visit, education and coordination of care. PLAN OF TREATMENT Pending Test Test Name Order Date X ray : Thoracic and lumbar 06/26/2024 X ray : Calcaneus, right 05/08/2023 THYROID PEROXIDASE AND THYROGLOBULIN ANT IBODIES (7260) 08/07/2022 THYROID PANEL WITH TSH (7444) 08/07/2022 IRON, TIBC AND FERRITIN PANEL (5616) ALBUMIN, RANDOM URINE W/CREATININE (6517 ) 08/07/2022 COMPREHENSIVE METABOLIC PANEL (96706) COMPREHENSIVE METABOLIC PANEL (18006) CBC (INCLUDES DIFF/PLT) (6399) CBC (INCLUDES DIFF/PLT) WITH SMEAR REVIE W () 09/08/2022 CBC (INCLUDES DIFF/PLT) WITH SMEAR REVIE W () 05/21/2023 URINALYSIS MICROSCOPIC (8563) 02/27/2024 RETICULOCYTE COUNT (793) 09/08/2022 SED RATE BY MODIFIED WESTERGREN (809) SED RATE BY MODIFIED WESTERGREN (809) C-REACTIVE PROTEIN (4420) 08/07/2022 HEMOGLOBIN A1c (496) 08/07/2022 APOLIPOPROTEIN A1 (5223) 08/07/2022 INSULIN (561) 08/07/2022 NT PROBNP (47110) 08/07/2022 NT PROBNP (38660) 09/08/2022 VITAMIN D, 1,25 DIHYDROXY (08230) 2022 LIPID PANEL W/ TRIGLYCERIDES/HDL-C (3784 8) 08/07/2022 Insurance Providers Payer Name Payer Address Payer Phone Subscriber Number Group Number Insured Name Patient Relationship to Insured Coverage Start Date Coverage End Date MAGALYS/Jodie montanez [address] [address] [place] [phone] [id number] [place] Self - patient is the insured MEDICAL (GENERAL) HISTORY Medical History History ICD Code Anxiety disorder depression nervous break down Drug addiction Surgical History Surgery Date(Month/Year) lumpectomy on left breast 2019
== END 2024-09-10 16:15 | disposition home or self-care (01) ==
PROVIDERS: PCP Registered Nurse; Visit Provider Physician Assistant
DX: M17.32 Unilateral post-traumatic osteoarthritis, left knee (principal)
CPT/HCPCS: 99204; G2211

== ENCOUNTER → 2024-09-10 15:18 | Outpatient (BNV) | payer OTHER, SELFPAY | PROVIDERS: Visit Provider Radiology Diagnostic Radiology | DX: M17.0 Bilateral primary osteoarthritis of knee (principal) | CPT/HCPCS: 73562 ==

== ENCOUNTER 2024-10-07 15:53 | Inpatient (IN) | payer MEDICAID, SELFPAY ==
--- NOTE | ~2024-10-07 | XR_ITS ---
CLINICAL HISTORY: heel ulcer Three views of the right foot. COMPARISON: None FINDINGS: Osteopenia. Irregular appearance of the body of the calcaneus suggestive of prior resection. Cortical irregularity/lucency along the most posterior aspect of the calcaneus suspicious for erosion. Hallux valgus. Degenerative changes of the 1st MTP joint. Interphalangeal joint space narrowing. Hammertoe deformity of the 2nd through 4th digits. Lateral angulation of the 1st interphalangeal joint. Metatarsals and phalanges appear intact. IMPRESSION: 1. Cortical irregularity/lucency along the most posterior aspect of the calcaneus raises suspicion for osteomyelitis in the appropriate clinical setting. No subcutaneous gas or radiopaque foreign body. Recommend correlation with prior imaging if available. 2. Status post resection of portions of the calcaneus. 3. Osteopenia. 4. Polyarticular degenerative changes of the right foot. This document has been electronically signed by: Blas Fraga MD on 10/07/2024 18:15:05
[2024-10-07 16:12] VITALS: BP 145/80; BP 155/65; PULSE 95; PULSE 97; RESP 18; TEMP 36.7; O2SAT 97; O2SAT 98; BMI 29.3
--- NOTE | 2024-10-07 17:17 | ECG_ITS ---
Test Reason : dizziness Blood Pressure : */* mmHG Vent. Rate : 94 BPM Atrial Rate : 94 BPM P-R Int : 154 ms QRS Dur : 86 ms QT Int : 424 ms P-R-T Axes : 105 34 22 degrees QTcB Int : 530 ms Poor data quality Normal sinus rhythm Cannot comment on ST changes Repeat EKG No previous ECGs available Referred By: Javier Olmos Electronically Signed By: JOHN DWYER MD
--- NOTE | 2024-10-07 17:22 | ED.GENADULT ---
HPI - General Adult General Chief complaint: Dizziness Stated complaint: dizziness on exertion Time Seen by Provider: 10/07/24 17:14 Source: patient Mode of arrival: ambulatory Limitations: no limitations History of Present Illness ED Provider: HPI narrative: Patient with history of osteomyelitis of the right heel status post debridement in 05/08 was doing okay for last 10 days noticed opening of the with increased pain and redness also noticed patient has been feeling weak and dizzy no fever no chills also complaining of nausea but no vomiting Related Data Home Medications ?Medication ?Instructions ?Recorded ?Confirmed acetaminophen 500 mg tablet 500 mg PO Q6H PRN Pain 09/10/24 10/07/24 cholecalciferol (vitamin D3) 50 50 mcg PO DAILY 09/10/24 10/07/24 mcg (2,000 unit) capsule ibuprofen 600 mg tablet 600 mg PO TID PRN Severe Pain 09/10/24 10/07/24 (Scale Score 7-10) lisinopril 40 mg tablet 40 mg PO DAILY 09/10/24 10/07/24 lorazepam 0.5 mg tablet 0.5 mg PO BID PRN Anxiety 09/10/24 10/07/24 ibuprofen 200 mg tablet (Advil) 400 mg PO BID PRN mild-moderate 10/07/24 10/07/24 pain methadone 10 mg/mL oral concentrate 75 mg PO DAILY@0600 10/07/24 methadone 10 mg/mL oral concentrate 80 mg PO DAILY@1700 10/07/24 pseudoephedrine-ibuprofen 30 1 cap PO DAILY PRN missed 10/07/24 10/07/24 mg-200 mg capsule (Advil Cold and methadone dose Sinus) Allergies Allergy/AdvReac Type Severity Reaction Status Date / Time hydroxyzine Allergy Hives Verified 10/07/24 16:18 prednisone Allergy psychotic Verified 10/07/24 16:18 episodes Review of Systems Review of Systems: Yes all other systems are reviewed and are negative PMFSH Past Medical History Surgical History Hx of foot surgery Hx of removal of cyst Social History Social History Alcohol intake: never Patient Tobacco Use Status: Never used Tobacco Substance Use Type: Heroin Advance Directives: No Advance Directives Information Provided: Yes Do you have a plan to hurt others: No Plan Current occupational status: unemployed Physical Exam ED Vital Signs: Vital Signs - 24 hr 10/07/24 16:12 10/07/24 18:16 Temperature 98.1 F 98.1 F Pulse Rate 97 89 Respiratory Rate 18 16 Blood Pressure 145/80 H 119/42 L Pulse Oximetry 98 97 Oxygen Delivery Method Room Air Room Air BMI result Body Mass Index 29.3 Appearance: Alert. Oriented X3. No acute distress. Eyes: No pallor or icterus ENT: Pharynx normal. Oral Mucosa moist Neck: Normal inspection. Neck supple. CVS: Normal heart rate and rhythm. Pulses normal. Respiratory: No respiratory distress. Equal air entry bilateral, no wheezing/rales/rhonchi Abdomen: Soft and nontender. Bowel sounds are present, no mass palpable, no CVA tenderness Skin: Skin warm and dry. Warmth and redness of the left fair superficial ulcerated wound right heel with local warmth Extremities: + lower extremity edema. No calf tenderness Neuro: Oriented X 3. No motor deficit. No sensory deficit.No cerebellar signs , cranial nerves II-XII intact Medications Administered Discontinued Medications Generic Name Dose Route Start Last Admin Trade Name Freq PRN Reason Stop Dose Admin Vancomycin HCl 1,000 mg/ 270 mls @ 270 mls/hr 10/07/24 17:21 10/07/24 19:00 Sodium Chloride IV 10/07/24 18:20 Infused ONCE ONE Infusion Medical Decision Making Medical Decision Making [facility] Narrative: Patient with history of osteomyelitis of right calcaneus with recurrence of the wound x-ray showed bone erosion likely osteomyelitis also does have cellulitis of the left leg will admit patient for further management started on vancomycin and Zosyn Differential Diagnosis Differential Diagnoses: The differential diagnosis associated with the presentation includes As above Admission/Observation Consideration of admission/observation: Escalation of care including admission/observation considered Cellulitis/osteomyelitis Consult Healthcare Provider Management of the patient was discussed with: Hospitalist Lab Data [facility] Lab Attestation statement: I reviewed the patient's lab results. 10/07/24 17:46 10/07/24 17:46 Labs: Lab Results 10/07/24 Range/Units 17:46 WBC 7.9 (4.8-10.8) X10*3/uL RBC 3.26 L (4.20-5.50) X10*6/uL Hgb 10.2 L (12.0-16.0) g/dl Hct 30.7 L (37.0-47.0) % MCV 94.2 (80.0-98.0) fL MCH 31.3 (27.0-33.0) pg MCHC 33.2 (31.0-35.0) g/dl RDW 14.0 (11.0-16.0) % Plt Count 258 (160-400) X10*3/uL MPV 9.5 (9.4-12.3) fL Immature Gran % (Auto) 0.4 (0.0-0.4) % Neut % (Auto) 75.5 H (45-73) % Lymph % (Auto) 13.5 L (20-40) % [place] % (Auto) 9.0 (2-11) % Eos % (Auto) 1.0 (0-4) % Baso % (Auto) 0.6 (0-2) % Lymph # (Auto) 1.1 L (1.2-4.9) X10*3/uL [place] # (Auto) 0.7 (0.1-1.2) X10*3/uL Eos # (Auto) 0.1 (0.0-0.4) X10*3/uL Baso # (Auto) 0.1 (0.0-0.2) X10*3/uL Abs Immat Gran (auto) 0.03 (0.00-0.03) X10*3/uL Absolute Neuts (auto) 6.0 (2.0-8.3) x10*3/uL Absolute Nucleated RBC 0.000 (0.0-0.012) X10*3/uL Nucleated RBC % (auto) 0.0 (0.0-0.2) /100WBC PT 11.7 (10.9-12.4) SEC INR 1.0 (0.9-1.1) Sodium 136 (135-145) mmol/L Potassium 4.3 (3.3-5.1) mmol/L Chloride 101 (96-108) mmol/L Carbon Dioxide 27 (22-29) mmol/L Anion Gap 12 (12-20) BUN 13 (9-16) mg/dL Creatinine 0.79 (0.5-1.4) mg/dL Estim Creat Clear Calc 70.8 Estimated GFR > 60 Random Glucose 93 (60-115) mg/dL Lactic Acid 1.5 (0.5-2.0) mmol/L Calcium 9.4 D (8.4-10.2) mg/dL Magnesium 2.1 (1.6-2.6) mg/dL Total Bilirubin 0.5 (0.0-1.0) mg/dL AST 23 (5-31) U/L ALT 24 (0-31) U/L Alkaline Phosphatase 91 (39-117) U/L Troponin I High Sens < 2.7 (<3.5-17.0) ng/L B-Natriuretic Peptide 26 (<100) pg/mL Total Protein 7.5 (6.5-8.0) g/dL Albumin 4.2 (3.5-5.0) g/dL Radiology Impression Discussion of test interpretation with radiology: I have reviewed the radiologist's reading. Radiologist Impression: IMPRESSION: 1. Cortical irregularity/lucency along the most posterior aspect of the calcaneus raises suspicion for osteomyelitis in the appropriate clinical setting. No subcutaneous gas or radiopaque foreign body. Recommend correlation with prior imaging if available. 2. Status post resection of portions of the calcaneus. 3. Osteopenia. 4. Polyarticular degenerative changes of the right foot. Discharge Plan Discharge Clinical Impression: Acute osteomyelitis of right calcaneus, Cellulitis of left leg Patient Disposition: Admitted As Inpatient
[2024-10-07 17:55] LABS: MANUAL DIFF FLAG NO
[2024-10-07] MEDS: vancomycin HCL 1,000 MG in 0.9 % Sodium Chloride 250 ML 270 MG IV (17:58)
[2024-10-07 18:03] LABS: Prothrombin Time 11.7 SEC (10.9-12.4)
[2024-10-07 18:11] LABS: Alanine Aminotransferase 24 U/L (0-31); Albumin Level 4.2 g/dL (3.5-5.0); Alkaline Phosphatase 91 U/L (39-117); Anion Gap 12 (12-20); Aspartate Amino Transferase 23 U/L (5-31); Bilirubin Total 0.5 mg/dL (0.0-1.0); Blood Urea Nitrogen 13 mg/dL (9-16); Calcium 9.4 mg/dL (8.4-10.2); Carbon Dioxide 27 mmol/L (22-29); Chloride 101 mmol/L (96-108); Creatinine Clr Calc Pharmacy 70.8; Estimated Glomerular Filt Rate > 60; Glucose Random 93 mg/dL (60-115); Lactic Acid 1.5 mmol/L (0.5-2.0); Magnesium 2.1 mg/dL (1.6-2.6); Potassium 4.3 mmol/L (3.3-5.1); Sodium 136 mmol/L (135-145); Total Protein 7.5 g/dL (6.5-8.0)
[2024-10-07 18:15] LABS: Basophils Absolute Auto 0.1 X10*3/uL (0.0-0.2); Basophils Percent Auto 0.6 % (0-2); Eosinophils Absolute Auto 0.1 X10*3/uL (0.0-0.4); Hematocrit 30.7 % (37.0-47.0); Hemoglobin 10.2 g/dl (12.0-16.0); Imm Gran Abs Auto 0.03 X10*3/uL (0.00-0.03); Imm Gran Pct Auto 0.4 % (0.0-0.4); Lymphocytes Absolute Auto 1.1 X10*3/uL (1.2-4.9); Lymphocytes Percent Auto 13.5 % (20-40); Mean Corpuscular HGB Conc 33.2 g/dl (31.0-35.0); Mean Corpuscular Hemoglobin 31.3 pg (27.0-33.0); Mean Corpuscular Volume 94.2 fL (80.0-98.0); Mean Platelet Volume 9.5 fL (9.4-12.3); Monocytes Absolute Auto 0.7 X10*3/uL (0.1-1.2); Neutrophils Percent Auto 75.5 % (45-73); Platelet Count 258 X10*3/uL (160-400); Red Blood Count 3.26 X10*6/uL (4.20-5.50); White Blood Count 7.9 X10*3/uL (4.8-10.8)
[2024-10-07 18:16] VITALS: BP 119/42; PULSE 89; RESP 16; TEMP 36.7; O2SAT 97
[2024-10-07 18:17] LABS: B Type Natriuretic Peptide 26 pg/mL (<100)
[2024-10-07 18:19] LABS: Troponin-I High Sensitivity < 2.7 ng/L (<3.5-17.0)
--- NOTE | 2024-10-07 18:26 | MHC.EVENTN ---
Patient noted to have a couple of hives on her left arm post initiation of vancomycin which was brief and quickly resolved. Provider notified
--- NOTE | 2024-10-07 19:08 | PC.NURSE ---
this RN printed pt methadone verification form from [facility], and filled out and faxed down to pharmacy. Pt receives split doses of 75mg in the AM and 80mg in the PM. She received 6 take home doses on the , so has missed a couple of doses at this time. Pt Pending admission, night RN aware to pass on to admit provider to order for patient.
--- NOTE | 2024-10-07 19:14 | HE.PHANOTE ---
Methadone verified 75 mg qam, 80 mg qpm [facility] last does 10/01/24 w/ 6 take home
--- NOTE | 2024-10-07 19:48 | PHA.MEDREC ---
Addendum entered by Clary Williamson RPh 10/07/24 20:15: [facility] REVIEWED Original Note: Pharmacy Consult ? Medication Reconciliation Pharmacy has completed the medication reconciliation. Spoke with patient to confirm medications. She had a list from home. She reports methadone 75 mg in the morning around 6 AM and 80 mg in the evening around 5PM. She gets take home bottles from [facility]. She said last took this morning, did not have evening dose. She reports taking OTC advil cold and sinus if she misses a methdone dose and takes regular OTC advil 400 mg if she feels she does not need rx strength (600 mg). She is not taking gabapentin, zofran, baclofen, metoclopramide, clonidine, bupropion or methocarbamol.
--- NOTE | 2024-10-07 20:46 | P.HPHOSP_ITS ---
History of Present Illness Date of Service: 10/07/24 Attending physician on admission: Lakisha Thibodeaux Chief Complaint: dizzy, nausea, R foot pain Patient is a 54-year-old female with a past medical history significant for HTN, anxiety, HARRY on methadone by Shivani Krueger, and history osteomyelitis right heel s/p debridement 04/21/24 at [facility] by Dr. Styles, who presented to the ED due to dizziness and nausea for the past 2 months followed by increased pain, wound, and erythema again at the right heel for the past 10 days. She describes the pain as aching sensation and rates it an 8/10. She reports that she has not been seeing Wound Care but has been managed by Dr. Styles and last saw him in August with an x-ray that was normal. She has had tactile fever and chills reports she has never measured a temperature. Of note she has a history of substance use, denies any history of IV drug use. She is seen at [facility] and is on methadone 75 mg in the morning and 80 mg nightly, confirmed earlier today. The patient reports that she would like to transfer care from her [facility] has she has been trying to discontinue the methadone and has not had help with doing so. She reports she has been without any drug use for almost 6 months. Review of Systems 2 Constitutional: Constitutional: Denies body ache(s), Reports chills, Denies fatigue and Denies headache(s) Eyes: Eyes: Denies change in vision and Denies photophobia ENT: Denies headache(s), Denies nasal congestion, Denies nasal discharge and Denies sore throat Cardiovascular: Cardiovascular: Denies chest pain, Denies rapid heart rate, Denies leg edema, Denies lightheadedness and Denies dyspnea Respiratory: Respiratory: Denies chest congestion, Denies cough, Denies dyspnea and Denies wheezing Gastrointestinal: Gastrointestinal: Denies melena, Denies hematochezia, Denies coffee ground emesis, Reports constipation, Denies diarrhea, Reports nausea, Denies vomiting and Denies hematemesis Genitourinary: Genitourinary: Denies hematuria, Denies dysuria and Denies urinary urgency Musculoskeletal: Musculoskeletal: Reports as per HPI Integumentary/Breasts: Skin/Breast: Reports as per HPI Neurologic: Denies confusion and Denies headache(s) Psychiatric: Psychiatric: Reports anxiety, Denies confusion and Reports depression Endocrine: Endocrine: Denies fatigue Hematologic/Lymphatic: Hematologic/Lymphatic: Denies easy bleeding and Denies easy bruising Allergic/Immunologic: Allergic/Immunologic: Denies wheezing [facility] Medical History (Updated 10/07/24 @ 21:01 by Selam Felder PA-C) Acute osteomyelitis of right calcaneus Mood disorder HTN (hypertension) Substance use disorder Functional capacity: independent ambulation Surgical History Hx of foot surgery Hx of removal of cyst Social History Alcohol intake: never Patient Tobacco Use Status: Never used Tobacco Substance Use Type: Heroin Advance Directives: No Advance Directives Information Provided: Yes Do you have a plan to hurt others: No Plan Current occupational status: unemployed Narrative: No smoking or alcohol. History of substance use, no IV drug use. On methadone since April without any substance use since. Meds Allergies Allergy/AdvReac Type Severity Reaction Status Date / Time hydroxyzine Allergy Hives Verified 10/07/24 16:18 prednisone Allergy psychotic Verified 10/07/24 16:18 episodes Active Medications: Current Medications Acetaminophen (Acetaminophen 325 Mg Tablet) 650 mg PO Q6H PRN PRN Reason: Pain, Mild 1-3,fever,headache Calcium Carbonate (Calcium Carbonate 750 Mg Tab.Chew) 750 mg PO Q4H PRN PRN Reason: Heartburn Enoxaparin Sodium (Enoxaparin Sodium 40 Mg/0.4 Ml Syringe) 40 mg SUBCUT Q24H [facility] Piperacillin Sod/Tazobactam (Sod 4.5 gm/ Sodium Chloride) 100 mls @ 200 mls/hr IV Q6H [facility] Vancomycin HCl 1,000 mg/ (Sodium Chloride) 270 mls @ 270 mls/hr IV Q12H [facility] Magnesium Hydroxide (Milk Of Magnesia 30 Ml Oral.Susp) 30 ml PO DAILY PRN PRN Reason: Constipation Melatonin (Melatonin 3 Mg Tablet) 6 mg PO BEDTIME PRN PRN Reason: Insomnia Ondansetron HCl (Ondansetron Hcl 4 Mg/2 Ml Vial) 4 mg IVPUSH Q8H PRN PRN Reason: Nausea and Vomiting Pharmacy Consult (Consult Rx Vancomycin Dosing) 1 each MISCELLANE DAILY PRN PRN Reason: Consult order Sodium Chloride (0.9 % Sodium Chloride Flush 3 Ml Syringe) 3 ml IVFLUSH QSHIFT [facility] Home Medications ?Medication ?Instructions ?Recorded ?Confirmed ?Last Taken ?Type acetaminophen 500 mg tablet 500 mg PO Q6H PRN Pain 09/10/24 10/07/24 10/07/24 History cholecalciferol (vitamin D3) 50 50 mcg PO DAILY 09/10/24 10/07/24 10/07/24 History mcg (2,000 unit) capsule ibuprofen 600 mg tablet 600 mg PO TID PRN Severe Pain 09/10/24 10/07/24 Unknown History (Scale Score 7-10) lisinopril 40 mg tablet 40 mg PO DAILY 09/10/24 10/07/24 10/07/24 History lorazepam 0.5 mg tablet 0.5 mg PO BID PRN Anxiety 09/10/24 10/07/24 10/07/24 History ibuprofen 200 mg tablet (Advil) 400 mg PO BID PRN mild-moderate 10/07/24 10/07/24 10/07/24 History pain methadone 10 mg/mL oral concentrate 75 mg PO DAILY@0600 10/07/24 10/07/24 10/07/24 History methadone 10 mg/mL oral concentrate 80 mg PO DAILY@1700 10/07/24 10/07/24 Unknown History pseudoephedrine-ibuprofen 30 1 cap PO DAILY PRN missed 10/07/24 10/07/24 Unknown History mg-200 mg capsule (Advil Cold and methadone dose Sinus) Physical Exam 2 Vital Signs and Narrative: Vital Signs: Last Vital Signs Temp 98.1 F 10/07/24 18:16 Pulse 89 10/07/24 18:16 Resp 16 10/07/24 18:16 BP 119/42 L 10/07/24 18:16 Pulse Ox 97 10/07/24 18:16 O2 Del Method Room Air 10/07/24 18:16 BMI result Body Mass Index 29.3 General: AOx3, no acute distress Resp: CTA bilaterally CVS: S1, S2, RRR GI: +BS, NT, no distention Skin: Warm, dry. skin peeling with erythematous and warm closed wound R heel. no active drainage. pain with palpation. Neuro: Cranial nerves II-XII grossly intact bilaterally. Motor grossly intact bilaterally Extremities: No LE edema Psych: Appropriate affect Const: General: No confusion Orientation/consciousness: No confusion Eyes: Direct Ophthalmoscopy: No photophobia Neuro: General: No confusion Results Labs 10/07/24 17:46 10/07/24 17:46 Labs: Laboratory Results - last 24 hr 10/07/24 17:46 MCV 94.2 MCH 31.3 MCHC 33.2 RDW 14.0 Plt Count 258 MPV 9.5 Immature Gran % (Auto) 0.4 Neut % (Auto) 75.5 H Lymph % (Auto) 13.5 L [place] % (Auto) 9.0 Eos % (Auto) 1.0 Baso % (Auto) 0.6 Lymph # (Auto) 1.1 L [place] # (Auto) 0.7 Eos # (Auto) 0.1 Baso # (Auto) 0.1 Abs Immat Gran (auto) 0.03 Absolute Neuts (auto) 6.0 Absolute Nucleated RBC 0.000 Nucleated RBC % (auto) 0.0 PT 11.7 INR 1.0 Anion Gap 12 Estim Creat Clear Calc 70.8 Estimated GFR > 60 Random Glucose 93 Lactic Acid 1.5 Calcium 9.4 D Magnesium 2.1 Total Bilirubin 0.5 AST 23 ALT 24 Alkaline Phosphatase 91 B-Natriuretic Peptide 26 Total Protein 7.5 Albumin 4.2 Assessment and Plan (1) Acute osteomyelitis of right calcaneus: Status: Acute (2) Substance use disorder: Status: Acute (3) Chronic anemia: Status: Acute Plan Patient is a 54-year-old female with a past medical history significant for HTN, anxiety, HARRY on methadone by Shivani Krueger, and history osteomyelitis right heel s/p debridement 04/21/24 at [facility] by Dr. Styles, who presented to the ED due to dizziness and nausea for the past 2 months followed by increased pain, wound, and erythema again at the right heel for the past 10 days. Acute osteomyelitis of right calcaneus - history osteomyelitis right heel s/p debridement 04/21/2024 at [facility] by Dr. Styles, followed outpatient, last seen in August with negative x-ray - WBC 7.9, vitals stable, lactic acid normal, no sepsis - x-ray right foot with cortical irregularity/lucency along the most posterior aspect of the calcaneus raises suspicion for osteomyelitis. No subcutaneous gas or radiopaque foreign body. Status post resection of portions of the calcaneus. Osteopenia. Polyarticular degenerative changes of the right foot. - started on vancomycin in ED, continue and add Zosyn - surgical consult - monitor CBC and BMP Substance use disorder - no history of IV drug use - currently on methadone by Shivani Krueger, 75 mg in a.m., 80 mg in p.m., confirmed - patient requesting addiction med consult as she would like to transfer care Chronic anemia - hemoglobin 10.2, hematocrit 30.7, stable - no need for blood transfusion - no obvious bleeding sources - monitor CBC HTN - continue home meds Anxiety - continue home meds DNI - discussed in depth with pt VTE prophy: lovenox Patient with acute osteomyelitis right calcaneus, requiring admission for at least 2 midnights stay for IV antibiotics and surgical consultation. Quality Stroke Does the patient have a stroke diagnosis?: No VTE Prior VTE?: No VTE Risk Level:: Medical - moderate - high VTE Device Contraindication: Treatment Not Indicated VTE Drug Contraindication: N/A - Med Ordered
[2024-10-07] MEDS: Enoxaparin Sodium 40 MG/0.4 ML SYRINGE SUBCUT (21:10)
[2024-10-07] MEDS: Piperacillin Sodium/Tazobactam 4.5 GM in 0.9 % Sodium Chloride 100 ML IV (21:12)
--- NOTE | 2024-10-07 21:15 | HE.PHANOTE ---
Methadone Last dose documentation sent over from [facility]. Per Miladis Samuel patients last dose was on 10/01/24 at 0746 patient gets 75/80 mgs split dose and was given 6 takehome bottles through 10/07/24.
[2024-10-07] MEDS: methADONE HCl 20 MG/2 ML ORAL.CONC 80 MG PO (21:24)
--- NOTE | 2024-10-07 22:51 | MHC.EDTECH ---
patient on cardiac diet per orders, patient order [employer] and received Paige RN aware
[2024-10-07] MEDS: 0.9 % Sodium Chloride Flush 3 ML SYRINGE IVFLUSH (23:51)
[2024-10-07 23:56] VITALS: BP 127/56; PULSE 76; RESP 18; TEMP 36.6; O2SAT 95
[2024-10-08] MEDS: Acetaminophen 325 MG TABLET 650 MG PO ×2 (01:50→08:22)
[2024-10-08] MEDS: Melatonin 3 MG TABLET 6 MG PO (01:50)
--- NOTE | 2024-10-08 01:55 | PC.NURSE ---
Patient mediated with Tylenol 650 mg PO for 3/10 pain in right foot.
--- NOTE | 2024-10-08 02:31 | PC.NURSE ---
This RN observed patient ambulating to the restroom and back to her room with a walker, gait noted to be slow, but steady.
[2024-10-08] MEDS: Piperacillin Sodium/Tazobactam 4.5 GM in 0.9 % Sodium Chloride 100 ML IV ×2 (03:16→09:59)
[2024-10-08 05:47] LABS: MANUAL DIFF FLAG NO
[2024-10-08 05:51] LABS: Basophils Absolute Auto 0.1 X10*3/uL (0.0-0.2); Basophils Percent Auto 0.8 % (0-2); Eosinophils Absolute Auto 0.2 X10*3/uL (0.0-0.4); Eosinophils Percent Auto 3.1 % (0-4); Hematocrit 29.6 % (37.0-47.0); Hemoglobin 9.5 g/dl (12.0-16.0); Imm Gran Abs Auto 0.01 X10*3/uL (0.00-0.03); Imm Gran Pct Auto 0.2 % (0.0-0.4); Lymphocytes Absolute Auto 1.7 X10*3/uL (1.2-4.9); Lymphocytes Percent Auto 27.4 % (20-40); Mean Corpuscular HGB Conc 32.1 g/dl (31.0-35.0); Mean Corpuscular Hemoglobin 30.8 pg (27.0-33.0); Mean Corpuscular Volume 96.1 fL (80.0-98.0); Mean Platelet Volume 9.6 fL (9.4-12.3); Monocytes Absolute Auto 0.8 X10*3/uL (0.1-1.2); Monocytes Percent Auto 12.1 % (2-11); Neutrophils Absolute Auto 3.5 x10*3/uL (2.0-8.3); Neutrophils Percent Auto 56.4 % (45-73); Platelet Count 248 X10*3/uL (160-400); Red Blood Count 3.08 X10*6/uL (4.20-5.50); Red Cell Distribution Width 13.7 % (11.0-16.0); White Blood Count 6.2 X10*3/uL (4.8-10.8)
[2024-10-08 06:08] LABS: Anion Gap 11 (12-20); Blood Urea Nitrogen 18 mg/dL (9-16); Carbon Dioxide 25 mmol/L (22-29); Chloride 101 mmol/L (96-108); Creatinine Clr Calc Pharmacy 62.1; Estimated Glomerular Filt Rate > 60; Glucose Random 94 mg/dL (60-115); Potassium 4.3 mmol/L (3.3-5.1); Sodium 133 mmol/L (135-145)
[2024-10-08] MEDS: vancomycin HCL 1,000 MG in 0.9 % Sodium Chloride 250 ML 270 MG IV (06:26)
--- NOTE | 2024-10-08 06:55 | PC.NURSE ---
Patient requesting her am Methadone dose to given to her around 8:30-9:00 am instead of 06:[address] Thibodeaux notified, per MD STEWART to administer Methadone 75 mg PO between 08:30-09:00 am.
[2024-10-08 07:13] VITALS: BP 125/77; PULSE 85; RESP 16; O2SAT 97
[2024-10-08] MEDS: methADONE HCl 20 MG/2 ML ORAL.CONC 75 MG PO (08:19)
[2024-10-08 09:24] LABS: C Reactive Protein 0.55 mg/dL (< or = 0.50)
[2024-10-08 09:49] LABS: Erythrocyte Sedimentation Rate 29 MM/HR (0-20)
[2024-10-08] MEDS: 0.9 % Sodium Chloride Flush 3 ML SYRINGE IVFLUSH (09:58)
[2024-10-08] MEDS: Cholecalciferol (Vitamin D3) 25 MCG TABLET 50 MCG PO (09:59)
--- NOTE | 2024-10-08 10:22 | MHC.CM.PN ---
Patient receives her Methadone from [facility]. Should Patient prove to have Osteo of her (R) heel and require LT IV ABT, Patient may need to consider a SNF; CM has initiated and will follow for dc planning.
--- NOTE | 2024-10-08 10:45 | PC.NURSE ---
patient medicated per the MAR, continues to ambulate with walker independently. resting quietly in room with call weiss within reach
--- NOTE | 2024-10-08 11:39 | P.PNIM_ITS ---
Subjective Subjective Date of Service: 10/08/24 Interval History: right leg erythema, pain Physical Exam 2 Vital Signs: Vital Signs: Last Vital Signs Temp 97.9 F 10/07/24 23:56 Pulse 85 10/08/24 07:13 Resp 16 10/08/24 07:13 BP 125/77 10/08/24 07:13 Pulse Ox 97 10/08/24 07:13 O2 Del Method Room Air 10/08/24 07:13 BMI result Body Mass Index 29.3 some erythema over rle with chornic deformities Objective Data Active Medications Acetaminophen (Acetaminophen 325 Mg Tablet) 650 mg PO Q6H PRN PRN Reason: Pain, Mild 1-3,fever,headache Last Admin: 10/08/24 08:22 Dose: 650 mg Documented By: DEVEN Calcium Carbonate (Calcium Carbonate 750 Mg Tab.Chew) 750 mg PO Q4H PRN PRN Reason: Heartburn Enoxaparin Sodium (Enoxaparin Sodium 40 Mg/0.4 Ml Syringe) 40 mg SUBCUT Q24H [facility] Last Admin: 10/07/24 21:10 Dose: 40 mg Documented By: TESHA Piperacillin Sod/Tazobactam (Sod 4.5 gm/ Sodium Chloride) 100 mls @ 200 mls/hr IV Q6H [facility] Last Infusion: 10/08/24 10:34 Dose: Infused Documented By: DEVEN Vancomycin HCl 1,000 mg/ (Sodium Chloride) 270 mls @ 270 mls/hr IV Q12H [facility] Last Infusion: 10/08/24 08:11 Dose: Infused Documented By: DEVEN Lorazepam (Lorazepam 0.5 Mg Tablet) 0.5 mg PO BID PRN PRN Reason: Anxiety Magnesium Hydroxide (Milk Of Magnesia 30 Ml Oral.Susp) 30 ml PO DAILY PRN PRN Reason: Constipation Melatonin (Melatonin 3 Mg Tablet) 6 mg PO BEDTIME PRN PRN Reason: Insomnia Last Admin: 10/08/24 01:50 Dose: 6 mg Documented By: ERIC Methadone HCl (Methadone Hcl 20 Mg/2 Ml Oral.Conc) 80 mg PO DAILY@1700 [facility] Last Admin: 10/07/24 21:24 Dose: 80 mg Documented By: TESHA Co-signed By: ERIC Methadone HCl (Methadone Hcl 20 Mg/2 Ml Oral.Conc) 75 mg PO DAILY@0600 [facility] Last Admin: 10/08/24 08:19 Dose: 75 mg Documented By: DEVEN Co-signed By: ELSIE Ondansetron HCl (Ondansetron Hcl 4 Mg/2 Ml Vial) 4 mg IVPUSH Q8H PRN PRN Reason: Nausea and Vomiting Pharmacy Consult (Consult Rx Vancomycin Dosing) 1 each MISCELLANE DAILY PRN PRN Reason: Consult order Sodium Chloride (0.9 % Sodium Chloride Flush 3 Ml Syringe) 3 ml IVFLUSH QSHIFT [facility] Last Admin: 10/08/24 09:58 Dose: 3 ml Documented By: DEVEN Vitamin D (Cholecalciferol (Vitamin D3) 25 Mcg Tablet) 50 mcg PO DAILY [facility] Last Admin: 10/08/24 09:59 Dose: 50 mcg Documented By: DEVEN Labs 10/08/24 05:23 10/08/24 05:23 Labs: Laboratory Results - last 24 hr 10/07/24 10/08/24 10/08/24 17:46 05:23 08:56 MCV 94.2 96.1 MCH 31.3 30.8 MCHC 33.2 32.1 RDW 14.0 13.7 Plt Count 258 248 MPV 9.5 9.6 Immature Gran % (Auto) 0.4 0.2 Neut % (Auto) 75.5 H 56.4 Lymph % (Auto) 13.5 L 27.4 [place] % (Auto) 9.0 12.1 H Eos % (Auto) 1.0 3.1 Baso % (Auto) 0.6 0.8 Lymph # (Auto) 1.1 L 1.7 [place] # (Auto) 0.7 0.8 Eos # (Auto) 0.1 0.2 Baso # (Auto) 0.1 0.1 Abs Immat Gran (auto) 0.03 0.01 Absolute Neuts (auto) 6.0 3.5 Absolute Nucleated RBC 0.000 0.000 Nucleated RBC % (auto) 0.0 0.0 ESR 29 H PT 11.7 INR 1.0 Anion Gap 12 11 L Estim Creat Clear Calc 70.8 62.1 Estimated GFR > 60 > 60 Random Glucose 93 94 Lactic Acid 1.5 Calcium 9.4 D 9.0 Magnesium 2.1 Total Bilirubin 0.5 AST 23 ALT 24 Alkaline Phosphatase 91 C-Reactive Protein B-Natriuretic Peptide 26 Total Protein 7.5 Albumin 4.2 10/08/24 08:57 MCV MCH MCHC RDW Plt Count MPV Immature Gran % (Auto) Neut % (Auto) Lymph % (Auto) [place] % (Auto) Eos % (Auto) Baso % (Auto) Lymph # (Auto) [place] # (Auto) Eos # (Auto) Baso # (Auto) Abs Immat Gran (auto) Absolute Neuts (auto) Absolute Nucleated RBC Nucleated RBC % (auto) ESR PT INR Anion Gap Estim Creat Clear Calc Estimated GFR Random Glucose Lactic Acid Calcium Magnesium Total Bilirubin AST ALT Alkaline Phosphatase C-Reactive Protein 0.55 H B-Natriuretic Peptide Total Protein Albumin Assessment and Plan (1) Mood disorder: Status: Acute Plan 54F PMH 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, abx, opiate dependence, mood disorder, presented with worsening rle pain and erythema RLE cellulitis, chronic OM inflammatory markers low, doubt acute OM, conitnue IV vanc, zosyn, follow up ID ?underlying rheum/MSK disorder htn holding lisinopril for borederline bp mood diosrder ativan prn opiate dependence methadone dvt prophylaxis- lovenox DNI reason for continued hospitalization: id eval Quality Stroke Does the patient have a stroke diagnosis?: No VTE Prior VTE?: No VTE Risk Level:: Medical - moderate - high VTE Device Contraindication: Treatment Not Indicated VTE Drug Contraindication: N/A - Med Ordered
[2024-10-08 13:48] VITALS: BP 134/65; PULSE 78; RESP 18; TEMP 36.7; O2SAT 98
--- NOTE | 2024-10-08 14:09 | PC.NURSE ---
patient upset in room, states that she has been unable to sleep - hospital bed provided for patient. states that previous shift told patient she was guaranteed bed upstairs, states she will be unable to sleep while down here and requesting to speak with provider. update on plan of care given, offered prn anxiety medications which patient declines at this time until she has room upstairs
--- NOTE | 2024-10-08 15:37 | P.DS_ITS ---
DS: Providers Provider Date of Service: 10/08/24 Date of admission: 10/07/24 20:14 Date of discharge: 10/08/24 Primary care physician: None Physician Consults: 10/07/24 20:46 Addiction Medicine Provider Routine Consulting Provider: Addiction Covering Reason for consultation: [facility], wants to transfer care Has provider been notified: No 10/07/24 20:51 Consult to General Surgery [place]ine [place] [facility] [place] [facility] Reason for consultation: foot wound 10/08/24 08:20 Consult to Infectious Diseases Routine Consulting Provider[place] [facility] [place] [facility] Reason for consultation: ?OM 10/08/24 09:02 Inpt - Recovery Team Routine Comment: Reason for consultation: HARRY eval DS: Diagnosis Discharge Diagnosis (1) Mood disorder: Status: Acute DS: Summary Hospital Course Hospital Course: from initial hpi: 54-year-old female with a past medical history significant for HTN, anxiety, HARRY on methadone by [facility] Krueger, and history osteomyelitis right heel s/p debridement 04/21/24 at [facility] by Dr. Styles, who presented to the ED due to dizziness and nausea for the past 2 months followed by increased pain, wound, and erythema again at the right heel for the past 10 days. She describes the pain as aching sensation and rates it an 8/10. She reports that she has not been seeing Wound Care but has been managed by Dr. Styles and last saw him in August with an x- ray that was normal. She has had tactile fever and chills reports she has never measured a temperature. Of note she has a history of substance use, denies any history of IV drug use. She is seen at [facility] and is on methadone 75 mg in the morning and 80 mg nightly, confirmed earlier today. The patient reports that she would like to transfer care from her [facility] has she has been trying to discontinue the methadone and has not had help with doing so. She reports she has been without any drug use for almost 6 months. hospital course: Patient was admitted for chronic osteomyelitis with superimposed bacterial cellulitis. ESR and CRP were unremarkable. Was seen by infectious disease who felt this was not acute osteomyelitis and will be discharged on 5 more days of doxycycline. It does appear that patient has some sort of underlying musculoskeletal/rheumatological issue this should be worked up as outpatient. For hypertension lisinopril was held for borderline blood pressure can continue as outpatient. For mood disorder was continued on Ativan as needed. For opiate dependence was continued on methadone. Time Attestation Discharge Coordination Time (in mins): 32 Quality: Safe Use of Opioids Does Pt have an Active Cancer Diagnosis on the Problem List?: No Quality: Stroke Does the patient have a stroke diagnosis?: No Physical Exam Vital Signs: Vital Signs: Last Vital Signs Temp 98.1 F 10/08/24 13:48 Pulse 78 10/08/24 13:48 Resp 18 10/08/24 13:48 BP 134/65 10/08/24 13:48 Pulse Ox 98 10/08/24 13:48 O2 Del Method Room Air 10/08/24 13:48 BMI result Body Mass Index 29.3 some erythema over rle with chornic deformities DS: Data Data Completed and Pending Labs on day of discharge: Laboratory Results - last 24 hr 10/07/24 10/08/24 10/08/24 17:46 05:23 08:56 WBC 7.9 6.2 RBC 3.26 L 3.08 L Hgb 10.2 L 9.5 L Hct 30.7 L 29.6 L MCV 94.2 96.1 MCH 31.3 30.8 MCHC 33.2 32.1 RDW 14.0 13.7 Plt Count 258 248 MPV 9.5 9.6 Immature Gran % (Auto) 0.4 0.2 Neut % (Auto) 75.5 H 56.4 Lymph % (Auto) 13.5 L 27.4 [place] % (Auto) 9.0 12.1 H Eos % (Auto) 1.0 3.1 Baso % (Auto) 0.6 0.8 Lymph # (Auto) 1.1 L 1.7 [place] # (Auto) 0.7 0.8 Eos # (Auto) 0.1 0.2 Baso # (Auto) 0.1 0.1 Abs Immat Gran (auto) 0.03 0.01 Absolute Neuts (auto) 6.0 3.5 Absolute Nucleated RBC 0.000 0.000 Nucleated RBC % (auto) 0.0 0.0 ESR 29 H PT 11.7 INR 1.0 Sodium 136 133 L Potassium 4.3 4.3 Chloride 101 101 Carbon Dioxide 27 25 Anion Gap 12 11 L BUN 13 18 H Creatinine 0.79 0.90 Estim Creat Clear Calc 70.8 62.1 Estimated GFR > 60 > 60 Random Glucose 93 94 Lactic Acid 1.5 Calcium 9.4 D 9.0 Magnesium 2.1 Total Bilirubin 0.5 AST 23 ALT 24 Alkaline Phosphatase 91 Troponin I High Sens < 2.7 C-Reactive Protein B-Natriuretic Peptide 26 Total Protein 7.5 Albumin 4.2 10/08/24 08:57 WBC RBC Hgb Hct MCV MCH MCHC RDW Plt Count MPV Immature Gran % (Auto) Neut % (Auto) Lymph % (Auto) [place] % (Auto) Eos % (Auto) Baso % (Auto) Lymph # (Auto) [place] # (Auto) Eos # (Auto) Baso # (Auto) Abs Immat Gran (auto) Absolute Neuts (auto) Absolute Nucleated RBC Nucleated RBC % (auto) ESR PT INR Sodium Potassium Chloride Carbon Dioxide Anion Gap BUN Creatinine Estim Creat Clear Calc Estimated GFR Random Glucose Lactic Acid Calcium Magnesium Total Bilirubin AST ALT Alkaline Phosphatase Troponin I High Sens C-Reactive Protein 0.55 H B-Natriuretic Peptide Total Protein Albumin Discharge Plan Discharge Anticipated Discharge Date/Time: 10/08/24 15:34 Patient Disposition: Home, Self-Care Discharge Diagnosis: cellulitis Referrals: Physician,None [Primary Care Provider] - 1 Week Discharge Medications: New doxycycline monohydrate 100 mg capsule 100 mg PO BID Qty: 10 0RF Continued ibuprofen [Advil] 200 mg Tablet 400 mg PO BID PRN (Reason: mild-moderate pain) methadone 10 mg/mL Concentrate 80 mg PO DAILY@1700 methadone 10 mg/mL Concentrate 75 mg PO DAILY@0600 Advil Cold and Sinus 30-200 mg Capsule 1 cap PO DAILY PRN (Reason: missed methadone dose) lisinopril 40 mg tablet 40 mg PO DAILY lorazepam 0.5 mg tablet 0.5 mg PO BID PRN (Reason: Anxiety) cholecalciferol (vitamin D3) 50 mcg (2,000 unit) capsule 50 mcg PO DAILY ibuprofen 600 mg tablet 600 mg PO TID PRN (Reason: Severe Pain (Scale Score 7-10)) acetaminophen 500 mg tablet 500 mg PO Q6H PRN (Reason: Pain) Discharge Orders: Discharge Order (Routine); Ordered 10/08/24 Ordered By: Mario Metz Diet: Advance to usual diet Activity on Discharge: As tolerated Stand Alone Forms: Patient Portal Discharge page Print Language: Andorran Care Plan Goals: manage celulitis, work up underlying msk issue Health Concerns: cellulitis, chronic om Plan of Treatment: 5 days doxy, outpatient follow up Assessment: see above
--- NOTE | 2024-10-08 15:47 | MHC.CM.PN ---
Patient has been medically cleared for dc to home today, self care.
--- NOTE | 2024-10-08 15:57 | P.CNID_ITS ---
History of Present Illness Data of Consult Service Date: 10/08/24 Requesting physician: Mario Metz Primary Care Provider: None Physician HPI Reason for consult: left leg erythema,right foot chronic OM She presents with redness LLE for a week as well as concern over right heel scaliness for last week. She has XRay showing cortical irregularity posterior right calcaneous suspicious for OM and resection portions of calcaneous. She has hypertension,OUD on Methadone ,anxiety disorder and insomnia. She has h/o nonhealing right calcaneal wound dating back to 04/2023 at least. She has MRI showed Brodies abscess with decompression through sinus tract with severe Achilles tendinopathy 04/2024. She had Brodies abscess debridement right foot including partial right calcanectomy and excision sinus tract with deep antibiotics with Vancomycin and tobramycin in right calcaneous 04/23. She had culture done showing mayfield sensitive pseudomonas as well as ESBL Klebsiella aerogenes and enterococcus faecalis sensitive to linezolid. She saw Dr Martha Carr of Infectious Disease and had Daptomycin and Cefepime IV recommended for 12 weeks since pathology showed chronic osteomyelitis to end on 07/14. However patient insurance was concern and patient not sure about IV antibiotics so she was given po Bactrim 1 in am and 2 in pm as well as Levaquin 750 mg daily and Augmentin 875/125 bid which finished on 07/14. She also had area healed then. She wants to get care here at [facility] [place] now. Now calcaneous not open but has scaliness and some itching. She was using silver alginate and bag balm. Review of Systems 2 Review of Systems: Yes all other systems are reviewed and are negative [facility] Past Medical History Medical History (Updated 10/08/24 @ 16:18 by Hannah Crowley MD) Chronic osteomyelitis of foot Acute osteomyelitis of right calcaneus Mood disorder HTN (hypertension) Substance use disorder Family History Family history: reviewed and not pertinent Surgical History Surgical History Hx of foot surgery Hx of removal of cyst Social History Social History Alcohol intake: never Patient Tobacco Use Status: Never used Tobacco Substance Use Type: Heroin Advance Directives: No Advance Directives Information Provided: Yes Do you have a plan to hurt others: No Plan Nutrition Risks: No Nutritional Risk service: No Current occupational status: unemployed Meds Allergies Allergy/AdvReac Type Severity Reaction Status Date / Time hydroxyzine Allergy Hives Verified 10/07/24 16:18 prednisone Allergy psychotic Verified 10/07/24 16:18 episodes Active Medications: Current Medications Acetaminophen (Acetaminophen 325 Mg Tablet) 650 mg PO Q6H PRN PRN Reason: Pain, Mild 1-3,fever,headache Last Admin: 10/08/24 08:22 Dose: 650 mg Calcium Carbonate (Calcium Carbonate 750 Mg Tab.Chew) 750 mg PO Q4H PRN PRN Reason: Heartburn Enoxaparin Sodium (Enoxaparin Sodium 40 Mg/0.4 Ml Syringe) 40 mg SUBCUT Q24H REPLACED BY [facility] Last Admin: 10/07/24 21:10 Dose: 40 mg Piperacillin Sod/Tazobactam (Sod 4.5 gm/ Sodium Chloride) 100 mls @ 200 mls/hr IV Q6H REPLACED BY [facility] Last Infusion: 10/08/24 10:34 Dose: Infused Vancomycin HCl 1,000 mg/ (Sodium Chloride) 270 mls @ 270 mls/hr IV Q12H REPLACED BY [facility] Last Infusion: 10/08/24 08:11 Dose: Infused Lorazepam (Lorazepam 0.5 Mg Tablet) 0.5 mg PO BID PRN PRN Reason: Anxiety Magnesium Hydroxide (Milk Of Magnesia 30 Ml Oral.Susp) 30 ml PO DAILY PRN PRN Reason: Constipation Melatonin (Melatonin 3 Mg Tablet) 6 mg PO BEDTIME PRN PRN Reason: Insomnia Last Admin: 10/08/24 01:50 Dose: 6 mg Methadone HCl (Methadone Hcl 20 Mg/2 Ml Oral.Conc) 80 mg PO DAILY@1700 REPLACED BY [facility] Last Admin: 10/07/24 21:24 Dose: 80 mg Methadone HCl (Methadone Hcl 20 Mg/2 Ml Oral.Conc) 75 mg PO DAILY@0600 REPLACED BY [facility] Last Admin: 10/08/24 08:19 Dose: 75 mg Ondansetron HCl (Ondansetron Hcl 4 Mg/2 Ml Vial) 4 mg IVPUSH Q8H PRN PRN Reason: Nausea and Vomiting Pharmacy Consult (Consult Rx Vancomycin Dosing) 1 each MISCELLANE DAILY PRN PRN Reason: Consult order Sodium Chloride (0.9 % Sodium Chloride Flush 3 Ml Syringe) 3 ml IVFLUSH QSHIFT REPLACED BY [facility] Last Admin: 10/08/24 09:58 Dose: 3 ml Vitamin D (Cholecalciferol (Vitamin D3) 25 Mcg Tablet) 50 mcg PO DAILY REPLACED BY [facility] Last Admin: 10/08/24 09:59 Dose: 50 mcg Home Medications ?Medication ?Instructions ?Recorded ?Confirmed ?Last Taken ?Type acetaminophen 500 mg tablet 500 mg PO Q6H PRN Pain 09/10/24 10/07/24 10/07/24 History cholecalciferol (vitamin D3) 50 50 mcg PO DAILY 09/10/24 10/07/24 10/07/24 History mcg (2,000 unit) capsule ibuprofen 600 mg tablet 600 mg PO TID PRN Severe Pain 09/10/24 10/07/24 Unknown History (Scale Score 7-10) lisinopril 40 mg tablet 40 mg PO DAILY 09/10/24 10/07/24 10/07/24 History lorazepam 0.5 mg tablet 0.5 mg PO BID PRN Anxiety 09/10/24 10/07/24 10/07/24 History ibuprofen 200 mg tablet (Advil) 400 mg PO BID PRN mild-moderate 10/07/24 10/07/24 10/07/24 History pain methadone 10 mg/mL oral concentrate 75 mg PO DAILY@0600 10/07/24 10/07/24 10/07/24 History methadone 10 mg/mL oral concentrate 80 mg PO DAILY@1700 10/07/24 10/07/24 Unknown History pseudoephedrine-ibuprofen 30 1 cap PO DAILY PRN missed 10/07/24 10/07/24 Unknown History mg-200 mg capsule (Advil Cold and methadone dose Sinus) Physical Exam 2 Vital Signs: Vital Signs: Last Vital Signs Temp 98.1 F 10/08/24 13:48 Pulse 78 10/08/24 13:48 Resp 18 10/08/24 13:48 BP 134/65 10/08/24 13:48 Pulse Ox 98 10/08/24 13:48 O2 Del Method Room Air 10/08/24 13:48 BMI result Body Mass Index 29.3 Const: General: cooperative HEENT: Head: Yes normal to inspection Face and sinus: Yes normal facial exam Mouth: Normal oral and palatal mucosa present Teeth and gingiva: d entition normal Eyes: General: appearance normal, both eyes and all related structures P upils: Equal, round and reactive pupils present Resp: Effort & Inspection: normal respiratory effort Cardio: Rate: regular rate Rhythm: regular rhythm GI: Palpation (GI): Soft to palpation and nontender : General: Yes no CVA tenderness Back/Spine/Pelvis: Other: kyphosis Back: no CVA tenderness Skin: General skin exam: no rashes or lesions noted Neuro: General: moves all extremities Cranial nerves: Yes Equal, round and reactive pupils present Extrem: Other: mild scaliness ,dry skin LLE below knee to ankle right heel scaliness,no heat or open areas General: Yes normal to inspection Psych: Appearance: grossly normal Results Labs 10/08/24 05:23 10/08/24 05:23 Labs: Short CBC 10/07/24 10/08/24 Range/Units 17:46 05:23 WBC 7.9 6.2 (4.8-10.8) X10*3/uL Hgb 10.2 L 9.5 L (12.0-16.0) g/dl Hct 30.7 L 29.6 L (37.0-47.0) % Plt Count 258 248 (160-400) X10*3/uL BMP 10/07/24 10/08/24 17:46 05:23 Sodium 136 133 L Potassium 4.3 4.3 Chloride 101 101 Carbon Dioxide 27 25 BUN 13 18 H Creatinine 0.79 0.90 Calcium 9.4 D 9.0 Liver Function 10/07/24 Range/Units 17:46 Total Bilirubin 0.5 (0.0-1.0) mg/dL AST 23 (5-31) U/L ALT 24 (0-31) U/L Alkaline Phosphatase 91 (39-117) U/L Albumin 4.2 (3.5-5.0) g/dL Assessment and Plan (1) Cellulitis of left leg: Status: Acute (2) Chronic osteomyelitis of foot: Status: Acute Plan For possible venous stasis left leg po Doxycycline 10 days and can use steroid cream for 10 days if desired. For chronic OM heel bag balm for scaly skin and observation as not acute with no open areas and ESR only 29 and no fever or leukocytosis but watch for any worsening as this is not cured just suppressed and can flare up again. She has proven chronic multiorganism chronic OM. Follow with me prn need Infectious Disease.
[2024-10-08] MEDS: methADONE HCl 20 MG/2 ML ORAL.CONC 80 MG PO (17:22)
== END 2024-10-08 17:44 | disposition home or self-care (01) | DRG 383 ==
LOC: HO.ED 20:18 → HO.EDOVER 20:20
PROVIDERS: Admitting Provider Student in an Organized Health Care Education/Training Program; Emergency Provider Internal Medicine; Visit Provider Internal Medicine
DX: L03.116 Cellulitis of left lower limb (principal); M86.672 Other chronic osteomyelitis, left ankle and foot; D64.9 Anemia, unspecified; F11.20 Opioid dependence, uncomplicated; I10 Essential (primary) hypertension; F41.9 Anxiety disorder, unspecified; Z79.899 Other long term (current) drug therapy
CPT/HCPCS: 36415; 73630; 80048; 80053; 83605; 83735; 83880; 84484; 85025; 85610; 85652; 86140; 87040; 93005; 99285; J1650; J2543; J3370; S9485

== ENCOUNTER → 2024-10-07 17:17 | Outpatient (BNV) | payer MEDICAID, SELFPAY | PROVIDERS: Admitting Provider Student in an Organized Health Care Education/Training Program; Emergency Provider Internal Medicine; Visit Provider Internal Medicine Cardiovascular Disease | DX: R42 Dizziness and giddiness (principal) | CPT/HCPCS: 93010 ==

== ENCOUNTER → 2024-10-07 17:21 | Outpatient (BNV) | payer MEDICAID, SELFPAY | PROVIDERS: Emergency Provider Internal Medicine; Visit Provider Radiology Diagnostic Radiology | DX: M19.071 Primary osteoarthritis, right ankle and foot (principal); M85.871 Other specified disorders of bone density and structure, right ankle and foot; Z98.890 Other specified postprocedural states | CPT/HCPCS: 73630 ==

== ENCOUNTER → 2024-10-07 20:14 | Outpatient (BNV) | payer MEDICAID, SELFPAY | PROVIDERS: Admitting Provider Student in an Organized Health Care Education/Training Program; Emergency Provider Internal Medicine; Visit Provider Physician Assistant | DX: M86.171 Other acute osteomyelitis, right ankle and foot (principal); F19.90 Other psychoactive substance use, unspecified, uncomplicated; D64.9 Anemia, unspecified | CPT/HCPCS: 99223 ==

== ENCOUNTER → 2024-10-07 20:14 | Outpatient (BNV) | payer MEDICAID, SELFPAY | PROVIDERS: Admitting Provider Student in an Organized Health Care Education/Training Program; Emergency Provider Internal Medicine; Visit Provider Internal Medicine | DX: L03.116 Cellulitis of left lower limb (principal); M86.679 Other chronic osteomyelitis, unspecified ankle and foot | CPT/HCPCS: 99222 ==

== ENCOUNTER 2024-11-21 14:42 | Outpatient (REF) | payer MEDICAID, SELFPAY ==
--- NOTE | ~2024-11-21 | CT_ITS ---
CLINICAL HISTORY: M17.32 - Unilateral post-traumatic osteoarthritis, left knee --- Additional Notes o r Special Instructions: surgical planning CT left knee without contrast Comparison: None Findings: No acute fracture or dislocation. Concavity at lateral tibial plateau measuring 8 mm in depth, likely the sequela of prior lateral tibial plateau fracture. There is contour abnormality of lateral femoral condyle with cortical irregularity, sclerosis and subchondral cystic change. Anterior subluxation of the tibia relative to the femur; suspect anterior cruciate ligament tear. No aggressive osseous lesion. There is moderate to severe medial tibiofemoral compartment joint space narrowing. There is mild to moderate tricompartmental osteophytosis. Amount of subchondral cystic change in the tibia with sclerosis most prominent in the lateral tibiofemoral compartment. There is small joint effusion with synovial thickening. There is trace calcification within the joint effusion. There is a fluid collection posterior/lateral aspect of tibiotalar joint space measuring 1.4 x 2.6 x 1.6 cm, likely in continuity with the joint fluid. There is muscular atrophy, predominantly involving musculature around the proximal fibula, present in lateral and posterior compartments. The musculature is otherwise normal in bulk. Unremarkable limited evaluation of the arteries. There are dilated, tortuous superficial veins. There is edema in the subcutaneous fat which is most prominent in infrapatellar region. The extensor mechanism is intact. Impression: Prior fracture of the lateral tibial plateau with subsequent degenerative change, detailed above. This document has been electronically signed by: Arelis Butler MD on 11/24/2024 14:45:18
--- OUTSIDE RECORDS SUMMARY | 2024-11-21 14:46 | XMS_ITS | Patient Health Record ---
Author Organization [facility] Talia meryl Aden Address [address] [place] [address] Care Team Providers Care Railroad Auditor Name Role Phone Lashell Garcia Primary Care Provider Jairo Dejesus Unavailable [phone] Allergies No Known Allergies Reason For Referral [...] breakdown of skin (L97.521) Active confirmed Problem 239381476 Lymphedema (I89.0) Active confirmed Problem 778680599 Malignant melanoma of right lower extremity including hip (C43.71) Active confirmed Problem [id number] Osteomyelitis o f right foot, unspecified type (M86.9) Active confirmed Plan Of Treatment Pending Test Test Name Order Date [id number] SKIN/TISSUE 04/19/2023 Insurance Providers Payer Name Payer Address Payer Phone Subscriber Number Group Number Insured Name Patient Relationship to Insured Coverage Start Date Coverage End Date [facility] [address] [place] [address] [id number] Sarah Everett Self - patient is the insured Medical (General) History Medical History History ICD Code Alzheimers disease Anemia Anxiety Back,Hip,and Knee pain Broken bones Depression High blood pressure Chicken pox
--- OUTSIDE RECORDS SUMMARY | 2024-11-21 14:46 | XMS_ITS | Clinical Summary ---
Author Organization [facility] it Address [address] [place] [address] Care Team Providers Care Hospice Plan Administrator Name Role Phone Lashell Garcia NP Primary Care Provider [phone] Social History Tobacco Use Types Packs/Day Years [...] - 2023-2 5 season) 2024 Influenza Vaccine (Season Ended) 2025 HIB Vaccines Aged Out No longer eligi [...] age to complete this topic Meningococcal B Vaccine Aged Out No l onger eligible based on patient's age to complete [...] age to complete this topic Care Teams Hospice Plan Administrator Relationship Specialty Start Date End Date Lashell Garcia NP [address] [place], [place] [id number] PCP - General 10/10/23
== END 2024-11-21 14:43 | disposition home or self-care (01) ==
LOC: HO.CT 14:42
PROVIDERS: Visit Provider Physician Assistant
DX: M17.32 Unilateral post-traumatic osteoarthritis, left knee (principal)
CPT/HCPCS: 73700

== ENCOUNTER → 2024-11-21 14:46 | Outpatient (BNV) | payer MEDICAID, SELFPAY | PROVIDERS: Visit Provider Radiology Diagnostic Radiology | DX: M17.32 Unilateral post-traumatic osteoarthritis, left knee (principal) | CPT/HCPCS: 73700 ==

== ENCOUNTER 2024-12-19 13:31 | Outpatient (AMB) | payer OTHER, SELFPAY ==
--- NOTE | 2024-12-19 13:34 | MHC.PC.OV ---
Vital Signs 12/19/24 13:37 Height 4 ft 9.48 in Weight 170 lb 8 oz BMI 36.3 BP 130/70 Blood Pressure Location Lt brachial Position Sitting Pulse 93 Pulse Source Pulse Oximeter Temp 97.7 F Temp Source Temporal Artery Scan Pulse Oximetry (%) 95 Oxygen Delivery Method Room Air Intake Visit Reasons: establish care Intake Note: Patient is a new patient here to establish care for HTN, Mood disorder, Anemia, Osteomyelitis of foot right foot, Substance use disorder. [facility] from [facility] ([facility] Medical records have been requested and have not received. Barrel Assembler Required: No Color Tester: Not Required per policy Accompanied by: Self / Same As Patient Allergies doxycycline Allergy (Intermediate, Verified 12/19/24 13:57) Hives hydroxyzine Allergy (Verified 12/19/24 13:57) Hives prednisone Allergy (Verified 12/19/24 13:57) psychotic episodes Medication List - Last Reconciled 12/19/24 by Virgen Momin PA-C acetaminophen 500 mg PO Q6H PRN cholecalciferol (vitamin D3) 50 mcg PO DAILY ibuprofen 600 mg PO TID PRN lisinopril 40 mg PO DAILY lorazepam 0.5 mg PO BID PRN methadone 80 mg PO DAILY@1700 methadone 80 mg PO DAILY@0600 Tobacco use date assessed: 12/19/24 Dental Screening Dental Screen Date: 12/19/24 Did you have a dental visit in the last 12 months?: No Did you have a dental problem in the last 6 months where you did not have access to dental care?: No Was dental information given to patient?: Patient has dentist HPI establish care HPI Details 54-year-old female with past medical history of hypertension, anxiety, substance use disorder on methadone by [facility] coming to the office for the 1st time. In review of the notes patient was seen in [facility] ED 09/2024 for right heel pain admitted for chronic osteomyelitis discharged with 5 days of doxycycline. Patient was seen by [facility] wound care Presenting with chronic pain and wound management, particularly in relation to osteomyelitis, and chronic musculoskeletal pain. She has a history of chronic osteomyelitis and is actively being treated at a wound clinic where her ulcer has shown significant improvement. Initial intervention was delayed due to hospital discharge, but her surgeon later noted the early capture of the ulcer. Reports possible spinal nerve involvement with chronic back pain and unilateral hand weakness, preceded by notable pain and affecting manual dexterity. She awaits further orthopedic evaluation later this month. Identified hypertension is under control with Lisinopril, despite concerns over previous inaccurate measurements. Displays signs of anemia with fatigue, underscoring recent hemoglobin findings. [facility] Medical History Chronic osteomyelitis of foot Acute osteomyelitis of right calcaneus HTN (hypertension) Substance use disorder Surgical History Hx of foot surgery Hx of removal of cyst Family History Other Mental health disorder Substance use disorder Social History Housing: House (with Mother) Alcohol intake: former Patient Tobacco Use Status: Never used Tobacco e-Cigarette/Vaping Use: Never Used Second Hand Smoke Exposure: No Substance Use Type: Heroin service: No Current occupational status: unemployed Cognitive needs: Yes (Walker, cane, Knee scooter) Hearing needs: No Vision needs: No Questionnaire PHQ-9 Over the last 2 weeks, how often have you been bothered by any of the following problems? 1. Little interest or pleasure in doing things: more than half the days 2. Feeling down, depressed, or hopeless: more than half the days 3. Trouble falling or staying asleep, or sleeping too much: more than half the days 4. Feeling tired or having little energy: more than half the days 5. Poor appetite or overeating: not at all 6. Feeling bad about yourself - or that you are a failure or have let yourself or your family down: more than half the days 7. Trouble concentrating on things, such as reading the newspaper or watching television: more than half the days 8. Moving or speaking so slowly that other people could have noticed. Or the opposite - being so fidgety or restless that you have been moving around a lot more than usual: several days 9. Thoughts that you would be better off or of hurting yourself in some way: not at all Total score: 13 Depression Screening Interpretation: Positive Depression Screening Follow-up: Existing condition and In treatment Depression Screening Done: Yes 16683 - PHQ-9 Billing: Yes Source: Developed by Drs. Santiago Salazar, Chel Mehta, Niko Ahuja and colleagues, with an educational garo from [employer]. Thrive Questionnaire Date Thrive assessed: 12/19/24 I am a: Patient What is your living situation today?: I have a steady place to live Within the past 12 months, did the food you bought not last and you didn't have the money to get more?: Never true Within the past 12 months, did you worry whether your food would run out before you got money to buy more?: Never true Do you have trouble paying for medicines?: No Do you have trouble getting transportation to medical appointments?: No Do you have trouble paying your heating and electricity bill?: No Do you have trouble taking care of your child, family member or friend?: No Do you have trouble with day-to-day activities such as bathing, preparing meals, shopping, managing finances, etc.?: Yes Are you currently unemployed and looking for a job?: I choose not to answer this question Are you interested in more education?: Yes Please select the resources that you would like help with: Daily support Currently or been in a relationship where the following occur: No concerns reported THRIVE Score: 0 AUDIT C Alcohol Use Questionnaire (AUDIT-C) 1. How often do you have a drink containing alcohol?: Never 3. How often do you have six or more drinks on one occasion?: Never Total Score: 0 ZACHARY-7 AMB Questionnaire ZACHARY-7 Date ZACHARY - 7 assessed: 12/19/24 Feeling nervous, anxious, or on edge: 3 = Nearly every day Not being able to stop or control worryin = Nearly every day Worrying too much about different things: 3 = Nearly every day Trouble relaxin = Nearly every day Being so restless that it is hard to sit still: 3 = Nearly every day Becoming easily annoyed or irritable: 1 = Several days Feeling afraid as if something awful might happen: 0 = Not at all Total ZACHARY-7 score (0-4 normal; 5-9 mild; 10-14 moderate; 15-21 severe): 16 Source: Developed by Chel Lucas, Niko Ahuja and colleagues, with an educational garo from [employer]. ZACHARY-7 Assessment Billing ZACHARY-7 Assessment Tool: ZACHARY-7 Assessment 96752 Review of Systems Const Denies body aches, Denies chills, Denies fever(s), Denies headache(s) and Denies poor appetite Eyes Reports no additional complaints ENT Denies dizziness and Denies headache(s) Card Denies chest pain, Denies lightheadedness and Denies dyspnea Resp Denies cough and Denies dyspnea GI Denies abdominal pain, Reports nausea and Denies vomiting Reports no additional complaints Musc Reports no additional complaints and Denies abnormal gait Skin/Breast Reports system reviewed and no additional complaints, except as documented Neuro Denies abnormal gait, Denies dizziness and Denies headache(s) Psych Reports no additional complaints Physical exam (Primary Care) Vital Signs: Last Vital Signs Temp 97.7 F 12/19/24 13:37 Pulse 93 12/19/24 13:37 BP 130/70 12/19/24 13:37 Pulse Ox 95 12/19/24 13:37 Oxygen Delivery Method Room Air 12/19/24 13:37 BMI result Body Mass Index 36.3 Tobacco/Smoking Status: Tobacco use Status Tobacco use date assessed 12/19/24 12/19/24 13:49 Patient Tobacco Use Status Never used Tobacco 12/19/24 13:49 e-Cigarette/Vaping Use Never Used 12/19/24 13:49 PHQ-9: PHQ-9 Score PHQ-9: Total score 13 12/19/24 13:53 Depression Screening Interpretation: Positive Depression Screening Follow-up: Existing condition and In treatment Thrive Assessment: Date of Thrive Assessment Date Thrive assessed 12/19/24 12/19/24 13:49 Currently or been in a relationship where the following occur: No concerns reported Const General: cooperative, healthy appearing, comfortable and no acute distress Orientation/consciousness: patient oriented x3 HENMT Head: Yes normocephalic Ears: hearing grossly normal bilaterally General nose exam: Normal external nose present Eyes General: appearance normal, both eyes and all related structures Conjunctivae: conjunctivae normal Neck Neck: Yes full ROM and Yes no lymphadenopathy Resp Effort & Inspection: normal respiratory effort Auscultation: clear to auscultation bilaterally, no crackles, no rales, no rhonchi and no wheezes Cardio Rate: regular rate Rhythm: regular rhythm Skin General skin exam: no rashes or lesions noted Neuro General: patient oriented x3 Gait exam (Neuro): Normal gait present Extrem General: Yes normal to inspection, Yes full ROM and No edema Psych Affect: normal affect Attitude: cooperative Insight: Good insight present (Psych) Judgement: Good judgement present (Psych) Coding Level of Care Code New Pt Level 4 (75898) Diagnoses Chronic osteomyelitis of foot M86.679 Substance use disorder F19.90 Depression F32.A Anxiety F41.9 HTN (hypertension) I10 Unilateral post-traumatic osteoarthritis, left knee M17.32 Upper back pain M54.9 Additional Codes ZACHARY-7 Assessment Billing - ZACHARY-7 Assessment Tool: ZACHARY-7 Assessment 48915 ([id number]) PHQ-9 - 75515 - PHQ-9 Billing: Yes ([id number]) Assessment & Plan Assessment & Plan (1) Chronic osteomyelitis of foot: Code(s): M86.679 - Other chronic osteomyelitis, unspecified ankle and foot Category: Medical Plan: Patient has a history of chronic osteomyelitis of the foot currently following with [facility] as well. Doing well. (2) Substance use disorder: Comment: through [employer] Code(s): F19.90 - Other psychoactive substance use, unspecified, uncomplicated Category: Medical Plan: Patient is currently following with [facility] for methadone treatment. (3) Depression: Code(s): F32.A - Depression, unspecified Category: Medical Plan: Patient having history of depression feels well managed with a counselor at this time and is getting lorazepam as needed. Declining additional management. (4) Anxiety: Comment: Counselor Eleonora Rx for Lorazepam Clary Valles Code(s): F41.9 - Anxiety disorder, unspecified Category: Medical Plan: See above (5) HTN (hypertension): Code(s): I10 - Essential (primary) hypertension Category: Medical Plan: Continue on current blood pressure medication. Avoid salt intake and encourage healthy diet and regular exercise. (6) Unilateral post-traumatic osteoarthritis, left knee: Code(s): M17.32 - Unilateral post-traumatic osteoarthritis, left knee Category: Medical Plan: Patient has severe osteoarthritis of left knee she is undergoing workup currently with [facility] orthopedics and considering total knee replacement. (7) Upper back pain: Code(s): M54.9 - Dorsalgia, unspecified Category: Medical Plan: Patient having upper back pain and does have previous thoracic x-ray showing curvature of the thoracic spine. She is seeing [facility] later this month for further evaluation and treatment. Plan I will continue managing her chronic osteomyelitis by monitoring wound improvements and potential skin graft evaluations at the wound clinic. Referral to orthopedics is arranged for chronic musculoskeletal pain, with anticipation of further imaging. Her essential hypertension is currently managed with Lisinopril, and we will facilitate proper blood pressure monitoring. Ordered anemia-related blood tests, and potential hematology referral is considered based on results. Methadone remains her primary treatment post-opiate addiction; however, we will review constipation management strategies. Her anxiety will continue to be managed with lorazepam, and I will ensure continuity with her mental health provider. Required referrals, follow-ups, and engagements with healthcare specialists are organized. Educational resources on the patient portal will be recommended for communication efficiency. This note was constructed using voice recognition software. While every effort has been made to ensure accuracy and paint laboratory technician, still areas may have been included sometimes these areas may affect the content or meeting of the given symptoms. Total time spent caring for the patient today was 30 minutes. This includes time spent before the visit reviewing the chart, time spent during the visit, and time spent after the visit and documentation. Patient was informed and verbally consented to the use of an ambient scribe for clinic note documentation during this visit. Orders: Orders IRON PROFILE Today D64.9 - Anemia, unspecified Comprehensive Met. Panel Today I10 - Essential (primary) hypertension, Z00.00 - Encounter for general adult medical examination without abnormal findings Free T4 (Free Thyroxine) Today I10 - Essential (primary) hypertension, Z00.00 - Encounter for general adult medical examination without abnormal findings Vitamin B12 and Folate Today I10 - Essential (primary) hypertension, Z13.21 - Encounter for screening for nutritional disorder Vitamin D 25-OH Total Today I10 - Essential (primary) hypertension, Z00.00 - Encounter for general adult medical examination without abnormal findings Complete Blood Count Auto Diff Today D64.9 - Anemia, unspecified, Z00.00 - Encounter for general adult medical examination without abnormal findings TSH reflex Free T4 Today I10 - Essential (primary) hypertension, Z00.00 - Encounter for general adult medical examination without abnormal findings Lipid Panel Today Z13.220 - Encounter for screening for lipoid disorders
--- OUTSIDE RECORDS SUMMARY | 2024-12-19 13:35 | XMS_ITS | Clinical Summary ---
Author Organization [facility] it Address [address] [place] [address] Care Team Providers Care Hand Glove Cleaner Name Role Phone Lashell Garcia NP Primary Care Provider [phone] Social History Tobacco Use Types Packs/Day Years [...] age to complete this topic Care Teams Hand Glove Cleaner Relationship Specialty Start Date End Date Lashell Garcia NP [address] [place], [place] [address] PCP - General 10/10/23
[2024-12-19 13:37] VITALS: BP 130/70; PULSE 93; TEMP 36.5; O2SAT 95; BMI 36.3
== END 2024-12-19 14:24 | disposition home or self-care (01) ==
LOC: HO.HMCH 13:32
DX: M86.679 Other chronic osteomyelitis, unspecified ankle and foot (principal); F19.90 Other psychoactive substance use, unspecified, uncomplicated; F32.A Depression, unspecified; F41.9 Anxiety disorder, unspecified; I10 Essential (primary) hypertension; M17.32 Unilateral post-traumatic osteoarthritis, left knee; M54.9 Dorsalgia, unspecified

== ENCOUNTER → 2024-12-19 13:31 | Outpatient (BNVA) | payer OTHER, SELFPAY | DX: I10 Essential (primary) hypertension (principal); D64.9 Anemia, unspecified; F11.20 Opioid dependence, uncomplicated; F41.9 Anxiety disorder, unspecified; F32.A Depression, unspecified; M17.32 Unilateral post-traumatic osteoarthritis, left knee; M54.9 Dorsalgia, unspecified; M86.671 Other chronic osteomyelitis, right ankle and foot | CPT/HCPCS: 96127; 99202 ==

== ENCOUNTER 2024-12-29 13:42 | Outpatient (AMB) | payer MEDICAID, SELFPAY ==
--- NOTE | 2024-12-29 13:46 | A.OFFVIS_ITS ---
Vital Signs 12/29/24 13:47 Height 4 ft 9 in Weight 170 lb BMI 36.8 Intake Visit Reasons: TM Refer: L TKA discussion Intake Note: Sarah is a 54 year old female who presents today to discuss possible Left TKA. She was last seen with Kristine who recommended TKA and ordered a CT Scan on 11/21/24. Patient reports that the left knee is feeling okay today, she states she took Tylenol this morning. Patient states no numbness or tingling to report at this time. Impression: Prior fracture of the lateral tibial plateau with subsequent degenerative change, detailed above. Allergies doxycycline Allergy (Intermediate, Verified 12/29/24 13:53) Hives hydroxyzine Allergy (Verified 12/29/24 13:53) Hives prednisone Allergy (Verified 12/29/24 13:53) psychotic episodes HPI HPI TM Refer: L TKA discussion: Details: Sarah is a 54 year old female who presents today to discuss possible Left TKA. She was last seen with Kristine who recommended TKA and ordered a CT Scan on 11/21/24. Patient reports that the left knee is feeling okay today, she states she took Tylenol this morning. Patient states no numbness or tingling to report at this time. Sarah has a interesting history. She reports having had foot and ankle surgery proximally 6 months ago and during her recovery her knee started to worsen significantly. She apparently got x-rays at 1 point and was told she had arthritis but began walking with increasing difficulty and repeat radiographs showed valgus collapse of the left knee and she was told she should have surgery sooner rather than later. She states she has a history of substance use disorder (never IVDU) and is on methadone. She has chronic osteomyelitis of the foot which has been treated. She went through several surgeries to treat this and states that the wound is closed and that the only problem with her foot is that her ipsilateral knee is making her walk poorly. She states she can not get through her day comfortably and would like to get back to work but can not. [facility] Medical History Chronic osteomyelitis of foot Acute osteomyelitis of right calcaneus HTN (hypertension) Substance use disorder Surgical History Hx of foot surgery Hx of removal of cyst Family History Other Mental health disorder Substance use disorder Social History Housing: House Alcohol intake: former Patient Tobacco Use Status: Never used Tobacco e-Cigarette/Vaping Use: Never Used Second Hand Smoke Exposure: No Substance Use Type: Heroin service: No Current occupational status: unemployed Cognitive needs: Yes (Walker, cane, Knee scooter) Hearing needs: No Vision needs: No Physical Exam Vital Signs: BMI result Body Mass Index 36.8 Extrem Other: Pleasant young woman in no acute distress. She walks with a walker and has a 20 degree valgus deformity of the left knee. This causes her to pronate and walk on the inside of her left foot. She has difficulty standing straight because of this. On exam she has full range of motion with a reducible valgus knee. She has 2+ dorsalis pedis pulse and no open wounds of the left heel with healed surgical scars. Results Reviewed Results Reviewed: I personally reviewed relevant radiographs. Radiographic report from x-rays performed on 05/08 states ?mild arthritis?, radiographs from August of 2024 show severe valgus pattern osteoarthritis with a bone loss in the lateral tibial plateau down to the level of the fibular head. CT scan from November of 2024 redemonstrates this abnormality Assessment & Plan Assessment & Plan (1) Unilateral post-traumatic osteoarthritis, left knee: Code(s): M17.32 - Unilateral post-traumatic osteoarthritis, left knee Category: Medical Plan: This is a pleasant 54-year-old woman with a severe posttraumatic valgus left knee. Her history does not quite compute but I have not seen her old x-rays only her report from April of 2024 stating mild arthritis. She definitely would benefit from knee replacement and I would recommend a preoperative CT scan for preoperative planning. Concerning is the history of osteomyelitis foot and a h/o substance use disorder which is under control with methadone. With respect to her osteomyelitis we would certainly need to confirm that that has been fully treated and then there is no evidence of ongoing infection. We can do this with labs and imaging. Her methadone use has been stable and she has not been an IV drug user and I think this is reasonable to proceed forward. I discussed this with her and this will be a process of making sure that she is optimized but she certainly can not continue on like this as this surgery become increasingly difficult as the deformity becomes more fixed. I did discuss the risks of surgery including the risk of peroneal neuropathy as well as infection and aseptic loosening. She expressed understanding. We will begin the preoperative clearance process. With respect to her infection I have ordered an ESR and a CRP. I will get her records from outside and we will proceed accordingly. (2) Chronic osteomyelitis of foot: Code(s): M86.679 - Other chronic osteomyelitis, unspecified ankle and foot Category: Medical (3) Substance use disorder: Comment: through [facility] Code(s): F19.90 - Other psychoactive substance use, unspecified, uncomplicated Category: Medical Plan I recommend a Left Biomet Custom Knee Replacement. She will meet with Radha and I will order a CT scan for surgical planning Orders: Orders C Reactive Protein Today M86.679 - Other chronic osteomyelitis, unspecified ankle and foot CT knee LT wo IV con 12/29/24 M17.32 - Unilateral post-traumatic osteoarthritis, left knee Erythrocyte Sedimentation Rate Today M86.679 - Other chronic osteomyelitis, unspecified ankle and foot Coding Level of Care Code Est Pt Level 4 (58072) Complex EM visit Add On G2211 Diagnoses Unilateral post-traumatic osteoarthritis, left knee M17.32 Chronic osteomyelitis of foot M86.679 Substance use disorder F19.90
[2024-12-29 13:47] VITALS: BMI 36.8
== END 2024-12-29 14:41 | disposition home or self-care (01) ==
LOC: HO.HOS 13:42
PROVIDERS: Visit Provider Orthopaedic Surgery
DX: M17.32 Unilateral post-traumatic osteoarthritis, left knee (principal); M86.679 Other chronic osteomyelitis, unspecified ankle and foot; F19.90 Other psychoactive substance use, unspecified, uncomplicated
CPT/HCPCS: 99214; G2211

== ENCOUNTER → 2024-12-29 13:42 | Outpatient (BNVA) | payer MEDICAID, SELFPAY | PROVIDERS: Visit Provider Orthopaedic Surgery | DX: M17.32 Unilateral post-traumatic osteoarthritis, left knee (principal); M86.672 Other chronic osteomyelitis, left ankle and foot; F19.90 Other psychoactive substance use, unspecified, uncomplicated | CPT/HCPCS: 99212 ==

== ENCOUNTER 2025-01-15 13:45 | Outpatient (RCR) | payer MEDICAID, OTHER, SELFPAY | END 2025-01-15 16:39 | disposition home or self-care (01) | LOC: HO.WCC 13:45 | PROVIDERS: Visit Provider Surgery | DX: S91.301D Unspecified open wound, right foot, subsequent encounter (principal); A52.16 Charcot's arthropathy (tabetic) | CPT/HCPCS: 11042; 97597; 99212; 99213 ==

== ENCOUNTER 2025-02-03 14:53 | Outpatient (REF) | payer OTHER, SELFPAY ==
[2025-02-03 15:20] LABS: MANUAL DIFF FLAG NO
[2025-02-03 15:31] LABS: Hematocrit 27.6 % (37.0-47.0); Hemoglobin 9.1 g/dl (12.0-16.0); Imm Gran Abs Auto 0.01 X10*3/uL (0.00-0.03); Imm Gran Pct Auto 0.2 % (0.0-0.4); Lymphocytes Absolute Auto 1.0 X10*3/uL (1.2-4.9); Mean Corpuscular HGB Conc 33.0 g/dl (31.0-35.0); Mean Corpuscular Hemoglobin 30.6 pg (27.0-33.0); Mean Corpuscular Volume 92.9 fL (80.0-98.0); NRBC Abs Auto 0.000 X10*3/uL (0.0-0.012); NRBC Pct Auto 0.0 /100WBC (0.0-0.2); Platelet Count 222 X10*3/uL (160-400); Red Blood Count 2.97 X10*6/uL (4.20-5.50); White Blood Count 5.6 X10*3/uL (4.8-10.8)
[2025-02-03 15:55] LABS: Alanine Aminotransferase 24 U/L (0-31); Albumin Level 4.1 g/dL (3.5-5.0); Alkaline Phosphatase 92 U/L (39-117); Anion Gap 12 (12-20); Aspartate Amino Transferase 35 U/L (5-31); Blood Urea Nitrogen 15 mg/dL (9-16); Calcium 8.8 mg/dL (8.4-10.2); Carbon Dioxide 29 mmol/L (22-29); Chloride 100 mmol/L (96-108); Cholesterol 195 mg/dL (<200); Estimated Glomerular Filt Rate > 60; HDL Cholesterol 66 mg/dL (>40); Iron 45 mcg/dL (30-160); Percent Iron Saturation 12 % (15-50); Potassium 4.0 mmol/L (3.3-5.1); Sodium 137 mmol/L (135-145); Total Iron Binding Capacity 370 mcg/dL (228-428); Total Protein 7.0 g/dL (6.5-8.0); Triglycerides 102 mg/dL (<150); Unsaturated Iron Binding 325 ug/dL
[2025-02-03 15:56] LABS: Appearance Urine Clear; Glucose Urine UA Negative (Negative); PH 6.0 (5.0-9.0); Specific Gravity - Urine 1.015 (1.005-1.025); UMIC TRIGGER UACC YES
--- OUTSIDE RECORDS SUMMARY | 2025-02-03 15:59 | XMS_ITS | Clinical Summary ---
Author Organization [facility] it Address [address] [place] [address] Care Team Providers Care Veterinary Surgeon Name Role Phone Lashell Garcia NP Primary Care Provider [phone] Social History Tobacco Use Types Packs/Day Years [...] 2) 2021 Colorectal Cancer Screening: Colonoscopy 03/10/2024 HIV Screening 03/10/2024 Hepatitis C Screening 03/10/2024 Social Influencers of Health Screening 03/10/2024 COVID-19 Vaccine (1 - 2023-2 5 season) 2024 Depression Screening 07/16/2024 Influenza Vaccine (#1) 2025 HIB Vaccines Aged Out No longer [...] age to complete this topic Care Teams Veterinary Surgeon Relationship Specialty Start Date End Date Lashell Garcia NP [address] [place] [address] PCP - General 10/10/23
--- OUTSIDE RECORDS SUMMARY | 2025-02-03 15:59 | XMS_ITS | Patient Health Record ---
Author Organization [facility] Talia meryl [facility] Address [address] [place] [address] Care Team Providers Care Aerobics Instructor Name Role Phone Lashell Garcia Primary Care Provider Jairo Dejesus Unavailable [phone] Allergies No Known Allergies Reason For Referral [...] breakdown of skin (L97.521) Active confirmed Problem Lymphedema (94270780) Lymphedema (I89.0) Active confirmed Problem Malignant melanoma of right lower extremity including hip (C43.71) Active confirmed Problem Osteomyelitis (46264663) Osteomyelitis of right foot, unspecified type (M86.9) Active confirmed Plan Of Treatment Pending Test Test Name Order Date [id number] SKIN/TISSUE 04/19/2023 Insurance Providers Payer Name Payer Address Payer Phone Subscriber Number Group Number Insured Name Patient Relationship to Insured Coverage Start Date Coverage End Date [facility] [address] [place] [address] [id number] Sarah Everett Self - patient is the insured Medical (General) History Medical History History ICD Code Alzheimers disease Anemia Anxiety Back,Hip,and Knee pain Broken bones Depression High blood pressure Chicken pox
[2025-02-03 16:13] LABS: Free T4 (Free Thyroxine) 1.08 ng/dL (0.71-1.85)
[2025-02-03 16:22] LABS: Folate 6.1 ng/mL (> or = 4.0); Vitamin B12 1331 pg/mL (200-900)
== END 2025-02-03 14:54 | disposition home or self-care (01) ==
LOC: HO.LAB 14:53
PROVIDERS: Absent Provider Orthopaedic Surgery
DX: Z00.00 Encounter for general adult medical examination without abnormal findings (principal); Z13.220 Encounter for screening for lipoid disorders; Z13.21 Encounter for screening for nutritional disorder; I10 Essential (primary) hypertension; M86.679 Other chronic osteomyelitis, unspecified ankle and foot; R35.89 Other polyuria; D64.9 Anemia, unspecified
CPT/HCPCS: 36415; 80053; 80061; 81001; 82306; 82607; 82746; 83540; 84439; 84443; 85025; 85652; 86140

== ENCOUNTER 2025-02-11 12:42 | Outpatient (AMB) | payer OTHER, SELFPAY ==
--- NOTE | 2025-02-11 13:02 | A.OFFPC_ITS ---
Vital Signs 3 02/11/25 13:04 02/11/25 13:32 Height 4 ft 9 in Weight 178 lb 5.663 oz BMI 38.6 BP 152/58 H 122/80 Blood Pressure Location Lt brachial Lt brachial Position Sitting Sitting Pulse 88 Pulse Source Pulse Oximeter Temp 97.3 F Temp Source Temporal Artery Scan Pulse Oximetry (%) 96 Oxygen Delivery Method Room Air Intake Visit Reasons: Inocencio banks/Dr. Up Warp Scouring Vat Tender Required: No Accompanied by: Self / Same As Patient Allergies doxycycline Allergy (Intermediate, Verified 02/11/25 13:08) Hives hydroxyzine Allergy (Verified 02/11/25 13:08) Hives prednisone Allergy (Verified 02/11/25 13:08) psychotic episodes Medication List - Last Reconciled 02/11/25 by Virgen Momin PA-C acetaminophen 500 mg PO Q6H PRN acetaminophen 500 mg PO Q6H PRN cholecalciferol (vitamin D3) 50 mcg PO DAILY dextroamphetamine-amphetamine 7.5 mg (Adderall) 7.5 mg PO DAILY [Folding Front Wheeled walker Duration: 99 days] ibuprofen 600 mg PO TID PRN lorazepam 0.5 mg PO BID PRN methadone 80 mg PO DAILY@1700 methadone 80 mg PO DAILY@0600 Tobacco use date assessed: 02/11/25 Dental Screening Dental Screen Date: 02/11/25 Did you have a dental visit in the last 12 months?: No Did you have a dental problem in the last 6 months where you did not have access to dental care?: No Was dental information given to patient?: No HPI Inocencio banks/Dr. Up 2 HPI0 Details 54-year-old female with past medical his tory of hypertension, anxiety, substance use disorder on methadone by Shivani Krueger last seen 12/2024 coming in for preoperative visit. Patient is scheduled to have left total knee replacement with Dr. Up 04/07/2025. Hypertension: Patient is currently on losartan-HCTZ by last PCP and has been taking it daily BP in the office 122/80 Patient tells us today she was previously on lisinopril but was developing sinus issues. She restarted her losartan hydrochlorothiazide which was previously prescribed by her last PCP but is unsure of the doses. She feels the sinus issues are resolving with this new medication. She does also have a chronic wound on her right lower extremity however there are no areas of open skin or drainage at this time and no sign of infection. [facility] Medical History Chronic osteomyelitis of foot Acute osteomyelitis of right calcaneus HTN (hypertension) Substance use disorder Surgical History Hx of foot surgery Hx of removal of cyst Family History Other Mental health disorder Substance use disorder Social History Housing: House Alcohol intake: former Patient Tobacco Use Status: Never used Tobacco e-Cigarette/Vaping Use: Never Used Second Hand Smoke Exposure: No Substance Use Type: Heroin service: No Current occupational status: unemployed Cognitive needs: Yes (Walker, cane, Knee scooter) Hearing needs: No Vision needs: No Questionnaire Thrive Questionnaire Date Thrive assessed: 02/11/25 I am a: Patient What is your living situation today?: I have a steady place to live Within the past 12 months, did the food you bought not last and you didn't have the money to get more?: Never true Within the past 12 months, did you worry whether your food would run out before you got money to buy more?: Never true Do you have trouble paying for medicines?: No Do you have trouble getting transportation to medical appointments?: No Do you have trouble paying your heating and electricity bill?: No Do you have trouble taking care of your child, family member or friend?: No Do you have trouble with day-to-day activities such as bathing, preparing meals, shopping, managing finances, etc.?: Yes Are you currently unemployed and looking for a job?: I choose not to answer this question Are you interested in more education?: Yes Please select the resources that you would like help with: Daily support Currently or been in a relationship where the following occur: No concerns reported THRIVE Score: 0 ZACHARY-7 AMB Questionnaire ZACHARY-7 Date ZACHARY - 7 assessed: 02/11/25 Source: Developed by Drs. Santiago Salazar, Chel Mehta, Niko Ahuja and colleagues, with an educational garo from [employer]. Review of Systems Const Denies body aches, Denies chills, Denies fever(s), Denies headache(s) and Denies poor appetite Eyes Reports no additional complaints ENT Denies dysphagia, Denies dizziness, Denies headache(s) and Denies odynophagia Card Denies chest pain, Denies syncope, Denies edema, Denies irregular heart rhythm, Denies lightheadedness and Denies dyspnea Resp Denies cough and Denies dyspnea GI Denies abdominal pain, Reports constipation, Denies dysphagia, Denies diarrhea, Denies nausea, Denies odynophagia and Denies vomiting Reports no additional complaints Musc Reports no additional complaints and Denies abnormal gait Skin/Breast Reports system reviewed and no additional complaints, except as documented Neuro Denies abnormal gait, Denies dizziness, Denies syncope and Denies headache(s) Psych Reports no additional complaints Physical exam (Primary Care) Vital Signs: Last Vital Signs Temp 97.3 F 02/11/25 13:04 Pulse 88 02/11/25 13:04 BP 122/80 02/11/25 13:32 Pulse Ox 96 02/11/25 13:04 Oxygen Delivery Method Room Air 02/11/25 13:04 BMI result Body Mass Index 38.6 Tobacco/Smoking Status: Tobacco use Status Tobacco use date assessed 02/11/25 02/11/25 13:06 Patient Tobacco Use Status Never used Tobacco 02/11/25 13:06 e-Cigarette/Vaping Use Never Used 02/11/25 13:06 Thrive Assessment: Date of Thrive Assessment Date Thrive assessed 02/11/25 02/11/25 13:06 Currently or been in a relationship where the following occur: No concerns reported Const General: cooperative, healthy appearing, comfortable and no acute distress Orientation/consciousness: patient oriented x3 HENMT Head: Yes normocephalic Ears: hearing grossly normal bilaterally General nose exam: Normal external nose present Eyes General: appearance normal, both eyes and all related structures Conjunctivae: conjunctivae normal Neck Neck: Yes full ROM and Yes no lymphadenopathy Resp Effort & Inspection: normal respiratory effort Auscultation: clear to auscultation bilaterally, no crackles, no rales, no rhonchi and no wheezes Cardio Rate: regular rate Rhythm: regular rhythm Skin General skin exam: no rashes or lesions noted Neuro General: patient oriented x3 Gait exam (Neuro): Normal gait present Extrem General: Yes normal to inspection, Yes full ROM and No edema Ankle/foot/toe images: 2 1. Callus without drainage, erythema or warmth Psych Affect: normal affect Attitude: cooperative Insight: Good insight present (Psych) Judgement: Good judgement present (Psych) Coding Level of Care Code Est Pt Level 4 (44097) Diagnoses Pre-op evaluation Z01.818 Anemia D64.9 Assessment & Plan Assessment & Plan (1) Pre-op evaluation: Code(s): Z01.818 - Encounter for other preprocedural examination Category: Medical Plan: Regarding preop clearance, the patient is at moderate risk for proposed surgery due to age and comorbidities. Reviewed with the patient that no surgery is completely free of risk and that this examination is to assist the surgeon in reviewing informed consent. She does have a chronic wound on her right lower extremity she is currently healed without evidence of infection. She should continue to monitor this and discuss with her surgeon prior to surgery to re- evaluate for possible infection. Last blood work does redemonstrate anemia with hemoglobin of 9.1 I am recommending patient have Hematology clearance given the surgery has a high-risk for blood loss. I did place an urgent referral to Hematology and plan to add addendum once cleared has been given. EKGs also reordered this is outside of the three-month window for preoperative clearance. From a primary care standpoint patient is cleared for surgery once Hematology and EKG has been reviewed. She may take all of her medications up until the day of the procedure. She must avoid NSAIDs 1 week prior to surgery. She will also reach out to the office in inform us of the dose of her losartan-hydrochlorothiazide (2) Anemia: Code(s): D64.9 - Anemia, unspecified Category: Medical Plan: See above plan Plan This note was constructed using voice recognition software. While every effort has been made to ensure accuracy and women's health care nurse practitioner, still areas may have been included sometimes these areas may affect the content or meeting of the given symptoms. Total time spent caring for the patient today was 20 minutes. This includes time spent before the visit reviewing the chart, time spent during the visit, and time spent after the visit and documentation. Orders: Orders 2 ECG 12 lead EKG 02/11/25 I10 - Essential (primary) hypertension, Z01.818 - Encounter for other preprocedural examination Referrals 2 Hematology & Oncology Referral D64.9 - Anemia, unspecified, Z01.818 - Encounter for other preprocedural examination Podiatry Referral B35.1 - Tinea unguium
[2025-02-11 13:04] VITALS: BP 152/58; PULSE 88; TEMP 36.3; O2SAT 96; BMI 38.6
--- OUTSIDE RECORDS SUMMARY | 2025-02-11 13:15 | XMS_ITS | Patient Health Record ---
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 hip (C43.71) Active confirmed Problem Osteomyelitis (69630751) Osteomyelitis of right foot, unspecified type (M86.9) Active confirmed Plan Of Treatment Pending Test Test Name Order Date [id number] SKIN/TISSUE 04/19/2023 Insurance Providers Payer Name Payer Address Payer Phone Subscriber Number Group Number Insured Name Patient Relationship to Insured Coverage Start Date Coverage End Date [facility] [address] [place] [address] [id number] Sarah Everett Self - patient is the insured Medical (General) History Medical History History ICD Code Alzheimers disease Anemia Anxiety Back,Hip,and Knee pain Broken bones Depression High blood pressure Chicken pox
--- OUTSIDE RECORDS SUMMARY | 2025-02-11 13:15 | XMS_ITS | Clinical Summary ---
Author Organization [facility] it Address [address] [place] [address] Care Team Providers Care Peer Educator Name Role Phone Lashell Garcia NP Primary Care Provider [phone] Social History Tobacco Use Types Packs/Day Years [...] age to complete this topic Care Teams Peer Educator Relationship Specialty Start Date End Date Lashell Garcia NP [address] [place] [address] PCP - General 10/10/23
[2025-02-11 13:32] VITALS: BP 122/80
== END 2025-02-11 13:42 | disposition home or self-care (01) ==
LOC: HO.HMCH 12:42
DX: Z01.818 Encounter for other preprocedural examination (principal); D64.9 Anemia, unspecified

== ENCOUNTER → 2025-02-11 12:42 | Outpatient (BNVA) | payer OTHER, SELFPAY | DX: Z01.818 Encounter for other preprocedural examination (principal); I10 Essential (primary) hypertension; F41.9 Anxiety disorder, unspecified; F11.20 Opioid dependence, uncomplicated; L84 Corns and callosities; D64.9 Anemia, unspecified; B35.1 Tinea unguium | CPT/HCPCS: 99212 ==

== ENCOUNTER → 2025-03-03 09:02 | Outpatient (BNVA) | payer OTHER, SELFPAY | DX: Z01.818 Encounter for other preprocedural examination (principal) ==

== ENCOUNTER 2025-03-05 08:33 | Outpatient (AMB) | payer OTHER, SELFPAY ==
[2025-03-05 08:44] VITALS: BMI 38.5
--- NOTE | 2025-03-05 08:44 | A.OFFVIS_ITS ---
Vital Signs 03/05/25 08:44 Height 4 ft 9 in Weight 178 lb BMI 38.5 Intake Visit Reasons: OV- Left Knee Synovasure Aspiration Intake Note: Sarah is a 55 year old female who presents today for a Left Knee Synovasure Aspiration for upcoming Left TKA 04/07/25. Allergies doxycycline Allergy (Intermediate, Verified 03/05/25 08:45) Hives hydroxyzine Allergy (Verified 03/05/25 08:45) Hives prednisone Allergy (Verified 03/05/25 08:45) psychotic episodes HPI HPI OV- Left Knee Synovasure Aspiration: Details: Sarah is a 55 year old female who presents today for a Left Knee Synovasure Aspiration for upcoming Left TKA 04/07/25. [facility] Medical History Chronic osteomyelitis of foot Acute osteomyelitis of right calcaneus HTN (hypertension) Substance use disorder Surgical History Hx of foot surgery Hx of removal of cyst Family History Other Mental health disorder Substance use disorder Social History Housing: House Alcohol intake: former Patient Tobacco Use Status: Never used Tobacco e-Cigarette/Vaping Use: Never Used Second Hand Smoke Exposure: No Substance Use Type: Heroin service: No Current occupational status: unemployed Cognitive needs: Yes (Walker, cane, Knee scooter) Hearing needs: No Vision needs: No Physical Exam Vital Signs: BMI result Body Mass Index 38.5 Extrem Other: Left knee in severe valgus with no skin changes. No effusion. No evidence of infection. Office Procedures Joint Inj/Aspir; Non-Pain Clin Joint Injection/Drain Details: Aspirated 15 mL of blood-tinged but otherwise normal-appearing synovial fluid Prep: site was prepped using aseptic technique Shoulders, Hips, Knees, Knee Large Joint Injection : Left Knee Coding Procedure code (CPT) selection complete Assessment & Plan Assessment & Plan (1) Unilateral post-traumatic osteoarthritis, left knee: Code(s): M17.32 - Unilateral post-traumatic osteoarthritis, left knee Category: Medical Plan: Synovitis sure to rule out infection. No evidence of infection but history of foot osteomyelitis. Coding Level of Care Code Est Pt Level 2 (87617) Diagnoses Unilateral post-traumatic osteoarthritis, left knee M17.32 CPT Codes Shoulders, Hips, Knees, - Knee Large Joint Injection : Left Knee ([id number])
--- OUTSIDE RECORDS SUMMARY | 2025-03-05 09:28 | XMS_ITS | Clinical Summary ---
Author Organization [facility] Address [address] [place] [address] Phone Care Team Providers Care Director Appointment Name Role Phone Jose Lashell CHILD ADOLESCENT PSYCHIATRIST Primary Care Provider [phone] Social History Tobacco Use Types Packs/Day Years [...] age to complete this topic Care Teams Director Appointment Relationship Specialty Start Date End Date Lashell Garcia NP [address] [place] [address] PCP - General 10/10/23
--- OUTSIDE RECORDS SUMMARY | 2025-03-05 09:29 | XMS_ITS | Patient Health Record ---
Author Organization [facility] Talia meryl LalAden Address [address] [address] Care Team Providers Care Machine Clipper Name Role Phone Lashell Garcia Primary Care Provider Jairo Dejesus Unavailable [phone] Allergies No Known Allergies Reason For Referral [...] of skin (L97.521) Active confirmed Problem Lymphedema (94924488) Lymphedema (I89.0) Active confirmed Problem Malignant melanoma of right lower extremity including hip (C43.71) Active confirmed Problem Osteomyelitis (71669012) Osteomyelitis of right foot, unspecified type (M86.9) Active confirmed Plan Of Treatment Pending Test Test Name Order Date [id number] SKIN/TISSUE 04/19/2023 Insurance Providers Payer Name Payer Address Payer Phone Subscriber Number Group Number Insured Name Patient Relationship to Insured Coverage Start Date Coverage End Date [facility] [address] [place] [address] [id number] Sarah Everett Self - patient is the insured Medical (General) History Medical History History ICD Code Alzheimers disease Anemia Anxiety Back,Hip,and Knee pain Broken bones Depression High blood pressure Chicken pox
== END 2025-03-05 09:31 | disposition home or self-care (01) ==
LOC: HO.HOS 08:33
PROVIDERS: Visit Provider Orthopaedic Surgery
DX: M17.32 Unilateral post-traumatic osteoarthritis, left knee (principal)
CPT/HCPCS: 20610

== ENCOUNTER → 2025-03-05 08:33 | Outpatient (BNVA) | payer OTHER, SELFPAY | PROVIDERS: Visit Provider Orthopaedic Surgery | DX: M17.32 Unilateral post-traumatic osteoarthritis, left knee (principal) | CPT/HCPCS: 20610 ==

== ENCOUNTER 2025-03-09 | Outpatient (REF) | payer OTHER, SELFPAY ==
--- OUTSIDE RECORDS SUMMARY | 2025-02-05 08:24 | XMS_ITS | Clinical Summary ---
Author Organization [facility] it Address [address] [place] [address] Care Team Providers Care Chief Security And Safety Officer Name Role Phone Lashell Garcia NP Primary Care Provider Social History Tobacco Use Types Packs/Day Years [...] age to complete this topic Care Teams Chief Security And Safety Officer Relationship Specialty Start Date End Date Lashell Garcia NP [address] [place] [address] PCP - General 10/10/23
--- OUTSIDE RECORDS SUMMARY | 2025-02-05 08:24 | XMS_ITS | Patient Health Record ---
Author Organization [facility] Talia meryl Lal[place] Address [address] [place] [address] Care Team Providers Care Insemination Worker Name Role Phone Lashell Garcia Primary Care Provider Jairo Dejesus Unavailable [phone] Allergies No Known Allergies Reason For Referral [...] of skin (L97.521) Active confirmed Problem Lymphedema (21246308) Lymphedema (I89.0) Active confirmed Problem Malignant melanoma of right lower extremity including hip (C43.71) Active confirmed Problem Osteomyelitis (95005603) Osteomyelitis of right foot, unspecified type (M86.9) Active confirmed Plan Of Treatment Pending Test Test Name Order Date [id number] SKIN/TISSUE 04/19/2023 Insurance Providers Payer Name Payer Address Payer Phone Subscriber Number Group Number Insured Name Patient Relationship to Insured Coverage Start Date Coverage End Date [facility] [address] [place] [address] [phone] [id number] Sarah Everett Self - patient is the insured Medical (General) History Medical History History ICD Code Alzheimers disease Anemia Anxiety Back,Hip,and Knee pain Broken bones Depression High blood pressure Chicken pox
--- NOTE | 2025-03-09 | ECG_ITS ---
Test Reason : PRE OP Blood Pressure : */* mmHG Vent. Rate : 73 BPM Atrial Rate : 73 BPM P-R Int : 168 ms QRS Dur : 88 ms QT Int : 428 ms P-R-T Axes : 43 19 37 degrees QTcB Int : 471 ms Normal sinus rhythm Normal ECG When compared with ECG of 07-Oct-2024 17:25, Due to artifact in prior EKG, cannot compare Referred By: Miladis Link Electronically Signed By: LOGAN NELSON
[2025-03-09 10:34] VITALS: BP 122/61; PULSE 76; RESP 17; O2SAT 100; BMI 32.0
--- NOTE | 2025-03-09 10:55 | HO.ANESPROP2 ---
HPI - Anesthesia Eval Consult details Narrative: 55yo F for Left Knee Replacement Total, cx'd by surgical team for drug use - reconsidering in 6 months Medical clearance pending heme consult No recent illness No CP/SOB with activity limited to pain, minimal housework OUD: Methadone 80mg BID GERD: occassional, rare tums Mild thoracic asymmetry with increased right posterior contour: Pt has been referred to spine surgeon for eval. No limits to thoracic expansion, lungs clear. Discussed that spinal anesthesia still likely, but complete eval DOS by anesthesiologist for final determination PMFSH Active Problems Active Problems: All Active Problems Onychomycosis (Acute) Anemia (Acute) Pre-op evaluation (Acute) Hypersomnolence (Acute) Upper back pain (Acute) Screening for hypercholesterolemia (Acute) Anxiety (Acute) Depression (Acute) Chronic anemia (Acute) Unilateral post-traumatic osteoarthritis, left knee (Acute) Chronic osteomyelitis of foot (Acute) Substance use disorder (Acute) HTN (hypertension) (Acute) Acute osteomyelitis of right calcaneus (Acute) Past Medical History Medical History (Updated 04/06/25 @ 07:56 by Virgen Momin PA-C) GERD (gastroesophageal reflux disease) Urinary incontinence Pinched nerve Chronic osteomyelitis of foot Acute osteomyelitis of right calcaneus HTN (hypertension) Substance use disorder Family History Family History Other Mental health disorder Substance use disorder Family history of problems with anesthesia: No Surgical History Surgical History Hx of foot surgery Hx of removal of cyst History of Problems with Anesthesia: No Social History Social History Housing: House Are you a primary youth care specialist to a significant other at home: No Do you presently have visiting nurse or other home services: Yes (ARCHITECTURAL DRAFTING INSTRUCTOR) Alcohol intake: former Patient Tobacco Use Status: Never used Tobacco e-Cigarette/Vaping Use: Never Used Second Hand Smoke Exposure: No Substance Use Type: Heroin service: No Current occupational status: unemployed Cognitive needs: Yes (Walker, cane, Knee scooter) Hearing needs: No Vision needs: No Meds Allergies Allergy/AdvReac Type Severity Reaction Status Date / Time doxycycline Allergy Intermediate Hives Verified 04/02/25 10:31 hydroxyzine Allergy Hives Verified 04/02/25 10:31 prednisone Allergy psychotic Verified 04/02/25 10:31 episodes Home Medications ?Medication ?Instructions ?Recorded ?Confirmed ?Last Taken ?Type acetaminophen 500 mg tablet 500 mg PO Q6H PRN Pain 09/10/24 04/02/25 10/07/24 History cholecalciferol (vitamin D3) 50 50 mcg PO DAILY 09/10/24 04/02/25 10/07/24 History mcg (2,000 unit) capsule lorazepam 0.5 mg tablet 0.5 mg PO BID PRN Anxiety 09/10/24 04/02/25 10/07/24 History methadone 10 mg/mL oral concentrate 80 mg PO DAILY@1700 10/07/24 04/02/25 Unknown History methadone 10 mg/mL oral concentrate 80 mg PO DAILY@0600 12/19/24 04/02/25 Unknown History dextroamphetamine-amphetamine 7.5 7.5 mg PO DAILY 02/11/25 04/02/25 Unknown History mg tablet (Adderall) Exam Height,Weight and Vital Signs: Height 5 ft Weight 74.389 kg Last Vital Signs Pulse 76 03/09/25 10:34 Resp 17 03/09/25 10:34 BP 122/61 03/09/25 10:34 Pulse Ox 100 03/09/25 10:34 O2 Del Method Room Air 03/09/25 10:34 Narrative Narrative: EKG 02/2025 Vent. Rate : 73 BPM Atrial Rate : 73 BPM P-R Int : 168 ms QRS Dur : 88 ms QT Int : 428 ms P-R-T Axes : 43 19 37 degrees QTcB Int : 471 ms Normal sinus rhythm Normal ECG When compared with ECG of 07-Oct-2024 17:25, Due to artifact in prior EKG, cannot compare Airway Mallampati Class: III TM Dist: >3cm Neck ROM: Full Loose/Missing/Broken Teeth: No Heart: RRR Lungs: CTAB - See HPI Assessment and Plan Assessment Anesthesia Assessment: Anesthesia Plan Discussed and PAT Visit Final Anesthetic Review Family History of Problems with Anesthesia: No History of Problems with Anesthesia: No
[2025-03-09 12:28] LABS: MRSA Nasal PCR NEGATIVE (Negative); SA Nasal PCR NEGATIVE (Negative)
--- OUTSIDE RECORDS SUMMARY | 2025-04-27 09:16 | XMS_ITS | Clinical Summary ---
Author Organization [address] [facility] Address [address] [place] [address] Phone Care Team Providers Care Customs Entry Writer Name Role Phone JoseLashell EQUIPMENT OPERATOR [employer]MODAL [employer]ARD Primary Care Provider [phone] Social History Tobacco Use Types Packs/Day Years Used Date Smoking Tobacco: Never Assessed Comments Unknown Sex and Gender Information Value Date Recorded Sex Assigned at Not on file Legal Sex Female 11:00 PM EST Gender Identity Not on file Sexual Orientation Not on file Plan of Treatment Health Maintenance Due Date Last Done Comments Breast Cancer Screening 1971 Colorectal Cancer Screening: Colonoscopy 1971 DTaP,Tdap,and Td Vaccines (1 - Tdap) 1990 Hepatitis B Vaccines (1 of 3 - 19+ 3-dose series) 1990 Cervical Cancer Screening: P ap Smear 02/16/1992 Pneumococcal Vaccine: 50+ Ye ars (1 of 1 - PCV) 2021 Zoster Vaccines (1 of 2) 2021 HIV Screening 03/10/2024 Hepatitis C Screening 03/10/2024 Social Influencers of Health Screening 03/10/2024 Depression Screening 07/16/2024 COVID-19 Vaccine (1 - 2023-2 5 season) 2025 Influenza Vaccine (#1) 2025 RSV Immunization Adult Patie nts (1 - 1-dose 75+ series) 2046 HIB Vaccines Aged Out No longer eligi [...] age to complete this topic Care Teams Customs Entry Writer Relationship Specialty Start Date End Date Lashell Garcia NP [address] [place] [address] PCP - General 10/10/23
== END 2025-03-09 00:01 | disposition home or self-care (01) ==
LOC: HO.PAT
PROVIDERS: Physician Assistant; Visit Provider Orthopaedic Surgery
DX: M17.32 Unilateral post-traumatic osteoarthritis, left knee (principal)
CPT/HCPCS: 87640; 87641; 93005

== ENCOUNTER → 2025-03-09 11:23 | Outpatient (BNV) | payer OTHER, SELFPAY | PROVIDERS: Visit Provider Internal Medicine | DX: Z01.810 Encounter for preprocedural cardiovascular examination (principal) | CPT/HCPCS: 93010 ==

== ENCOUNTER 2025-03-14 09:51 | Outpatient (REF) | payer OTHER, SELFPAY ==
--- NOTE | ~2025-03-14 | CT_ITS ---
CLINICAL HISTORY: M17.32 - Unilateral post-traumatic osteoarthritis, left knee --- Additional Notes or Special Instructions: CT scan of left knee for surgical planning--biomet protocol Noncontrast CT left hip, left knee and left ankle Comparison: CT/SR - CT KNEE LT WO IV CON - 11/21/24 14:53 EDT Findings: Mild degenerative changes of the left femoral-acetabular joint. No fracture or dislocation. Old depressed fracture with irregular margins/erosion involving the lateral tibial plateau, unchanged in appearance. Small knee joint effusion. The left foot and ankle demonstrate diffuse moderate degenerative change and demineralization. No acute fracture or dislocation. Impression: Chronic and degenerative changes as detailed. Evaluation of the knee is similar to the 11/21/2024 study. This document has been electronically signed by: Zacarias Tijerina MD on 03/14/2025 11:34:38
--- OUTSIDE RECORDS SUMMARY | 2025-03-14 09:54 | XMS_ITS | Clinical Summary ---
Author Organization [facility] Address [address] [place] [address] Phone Care Team Providers Care Manager User Interface Name Role Phone Jose Lashell CARD LACER Primary Care Provider [phone] Social History Tobacco Use Types Packs/Day Years [...] age to complete this topic Care Teams Manager User Interface Relationship Specialty Start Date End Date Lashell Garcia NP [address] [place] [address] PCP - General 10/10/23
--- OUTSIDE RECORDS SUMMARY | 2025-03-14 09:54 | XMS_ITS | Patient Health Record ---
Author Organization [facility] Talia meryl LalA[place] Address [address] [facility] [address] [place] [address] Care Team Providers Care Biomass Plant Manager Name Role Phone Lashell Garcia Primary Care Provider Jairo Dejesus Unavailable [phone] Allergies No Known Allergies Reason For Referral [...] of skin (L97.521) Active confirmed Problem Lymphedema (50894195) Lymphedema (I89.0) Active confirmed Problem Malignant melanoma of right lower extremity including hip (C43.71) Active confirmed Problem Osteomyelitis (29343464) Osteomyelitis of right foot, unspecified type (M86.9) Active confirmed Plan Of Treatment Pending Test Test Name Order Date [id number] SKIN/TISSUE 04/19/2023 Insurance Providers Payer Name Payer Address Payer Phone Subscriber Number Group Number Insured Name Patient Relationship to Insured Coverage Start Date Coverage End Date [facility] [address] [place] [address] [id number] Sarah Everett Self - patient is the insured Medical (General) History Medical History History ICD Code Alzheimers disease Anemia Anxiety Back,Hip,and Knee pain Broken bones Depression High blood pressure Chicken pox
== END 2025-03-14 09:52 | disposition home or self-care (01) ==
LOC: HO.CT 09:51
PROVIDERS: Visit Provider Orthopaedic Surgery
DX: M17.32 Unilateral post-traumatic osteoarthritis, left knee (principal)
CPT/HCPCS: 73700

== ENCOUNTER → 2025-03-14 09:53 | Outpatient (BNV) | payer OTHER, SELFPAY | PROVIDERS: Visit Provider Radiology Vascular & Interventional Radiology | DX: M17.32 Unilateral post-traumatic osteoarthritis, left knee (principal) | CPT/HCPCS: 73700 ==

== ENCOUNTER → 2025-03-20 09:00 | Outpatient (BNV) | payer OTHER, SELFPAY | PROVIDERS: Visit Provider Nurse Practitioner Family | DX: D50.9 Iron deficiency anemia, unspecified (principal) | CPT/HCPCS: 99204 ==

== ENCOUNTER 2025-04-01 15:48 | Outpatient (REF) | payer OTHER, SELFPAY ==
--- OUTSIDE RECORDS SUMMARY | 2025-04-01 19:05 | XMS_ITS | Patient Health Record ---
Author Organization [facility] Talia meryl LalAden Address [address] [place] [address] Care Team Providers Care Retort Setter Name Role Phone Lashell Garcia Primary Care Provider Jairo Dejesus Unavailable [phone] Allergies No Known Allergies Reason For Referral [...] of skin (L97.521) Active confirmed Problem Lymphedema (96619043) Lymphedema (I89.0) Active confirmed Problem Malignant melanoma of right lower extremity including hip (C43.71) Active confirmed Problem Osteomyelitis (08268914) Osteomyelitis of right foot, unspecified type (M86.9) Active confirmed Plan Of Treatment Pending Test Test Name Order Date [id number] SKIN/TISSUE 04/19/2023 Insurance Providers Payer Name Payer Address Payer Phone Subscriber Number Group Number Insured Name Patient Relationship to Insured Coverage Start Date Coverage End Date [facility] [address] [place] [address] [id number] Sarah Everett Self - patient is the insured Medical (General) History Medical History History ICD Code Alzheimers disease Anemia Anxiety Back,Hip,and Knee pain Broken bones Depression High blood pressure Chicken pox
== END 2025-04-01 15:49 | disposition home or self-care (01) ==
LOC: HO.HOSX 15:48
PROVIDERS: Visit Provider Physician Assistant
DX: Z13.89 Encounter for screening for other disorder (principal)

== ENCOUNTER 2025-04-02 10:07 | Outpatient (REF) | payer OTHER, SELFPAY ==
--- NOTE | ~2025-04-02 | XR_ITS ---
EXAMINATION: XR KNEE, LEFT CLINICAL INFORMATION: M25.562 - Pain in left knee COMPARISON: 09/10/2024 left knee radiographs. TECHNIQUE: AP view bilateral knees standing, lateral and patellofemoral views left knee. FINDINGS: RIGHT KNEE: No fracture or dislocation. Mild medial and lateral compartmental joint space narrowing. Normal alignment. Normal soft tissues. LEFT KNEE: No fracture, dislocation, or suspicious bone lesion. There is significant varus angulation of the knee joint, with severe lateral compartment arthritic changes, with qjrc-hx-xakt appearance, subchondral sclerosis and irregularity of both the lateral femoral condyle and lateral tibial plateau. Depression of the lateral tibial plateau likely on the basis of prior trauma. There is moderate narrowing of the medial compartment. There is patella kailey. Mild to moderate degenerative arthritis in the patellofemoral compartment with lateral patellar tilt. No gross joint effusion evident. No soft tissue abnormalities. XR/XR knee LT 3V IMPRESSION: 1. Severe posttraumatic arthritis of the LEFT knee, predominantly involving the lateral compartment where there is ihqo-dl-xhus appearance and depression of the lateral tibial plateau. There is significant resultant varus angulation of the left knee joint. There is patella kailey. Overall there is no significant interval change from prior radiographs. Electronically signed by: Juventino Winston MD 04/02/2025 10:39 AM EDT
== END 2025-04-02 10:08 | disposition home or self-care (01) ==
LOC: HO.HOSX 10:07
PROVIDERS: Visit Provider Physician Assistant
DX: Z01.818 Encounter for other preprocedural examination (principal); M17.32 Unilateral post-traumatic osteoarthritis, left knee; I10 Essential (primary) hypertension; Z79.899 Other long term (current) drug therapy; Z96.652 Presence of left artificial knee joint
CPT/HCPCS: 73562; 99212

== ENCOUNTER 2025-04-02 10:07 | Outpatient (AMB) | payer OTHER, SELFPAY ==
--- NOTE | 2025-04-01 14:34 | MHC.OFFVIS ---
Vital Signs 04/02/25 10:31 Height 5 ft Weight 170 lb BMI 33.2 Intake Visit Reasons: Pre-Op: L TKA w/NE 04/07/25 Intake Note: Sarah is a 55 year old female who presents today for a preoperative visit to discuss upcoming procedure for a left TKA, scheduled on 04/07/25. Pain management agreement reviewed and signed. Allergies doxycycline Allergy (Intermediate, Verified 04/02/25 10:31) Hives hydroxyzine Allergy (Verified 04/02/25 10:31) Hives prednisone Allergy (Verified 04/02/25 10:31) psychotic episodes Medication List - Last Reconciled 04/02/25 by Kristine Valero PA-C acetaminophen 500 mg PO Q6H PRN cholecalciferol (vitamin D3) 50 mcg PO DAILY dextroamphetamine-amphetamine 7.5 mg (Adderall) 7.5 mg PO DAILY [Folding Front Wheeled walker Duration: 99 days] ibuprofen 600 mg PO TID PRN lorazepam 0.5 mg PO BID PRN losartan-hydrochlorothiazide 50-12.5 mg 1 tab PO DAILY methadone 80 mg PO DAILY@1700 methadone 80 mg PO DAILY@0600 HPI Comments Details: Ms Everett presents to the office today for Orthopedic Pre op clearance. She is scheduled for a left total knee arthroplasty with Dr. Up on 04/07/2025. She has been experiencing pain in the left knee for over a year. She does not recall a specific incident where she had an injury but during her treatment for osteomyelitis in her right foot she was using a scooter and does remember a moment where she may have stumbled with the scooter injuring the knee. Because of her right foot debridement in 2023 she has had to put more strain on her left knee which is worsening her pain. She has difficulty with performing daily activities and walking long distances. She does use a walker for ambulation. Patient lives at home with her mother in a 1 level home with 3 stairs to enter. PCP clearance 02/11/25 Virgen Momin: 54-year-old female with past medical history of hypertension, anxiety, substance use disorder on methadone by Shivani Krueger last seen 12/2024 coming in for preoperative visit. Patient is scheduled to have left total knee replacement with Dr. Up 04/07/2025. Hypertension: Patient is currently on losartan-HCTZ by last PCP and has been taking it daily BP in the office 122/80 Patient tells us today she was previously on lisinopril but was developing sinus issues. She restarted her losartan hydrochlorothiazide which was previously prescribed by her last PCP but is unsure of the doses. She feels the sinus issues are resolving with this new medication. She does also have a chronic wound on her right lower extremity however there are no areas of open skin or drainage at this time and no sign of infection Regarding preop clearance, the patient is at moderate risk for proposed surgery due to age and comorbidities. Reviewed with the patient that no surgery is completely free of risk and that this examination is to assist the surgeon in reviewing informed consent. She does have a chronic wound on her right lower extremity she is currently healed without evidence of infection. She should continue to monitor this and discuss with her surgeon prior to surgery to re-evaluate for possible infection. Last blood work does redemonstrate anemia with hemoglobin of 9.1 I am recommending patient have Hematology clearance given the surgery has a high-risk for blood loss. I did place an urgent referral to Hematology and plan to add addendum once cleared has been given. EKGs also reordered this is outside of the three-month window for preoperative clearance. From a primary care standpoint patient is cleared for surgery once Hematology and EKG has been reviewed. She may take all of her medications up until the day of the procedure. She must avoid NSAIDs 1 week prior to surgery. She will also reach out to the office in inform us of the dose of her losartan-hydrochlorothiazide Hematology Clearance 03/18/25 Mickey Reina PSYCHOLOGIST COUNSELING: 1. Iron-deficiency anemia confirmed by ferritin of 12, low serum iron, low transferrin saturation, high TIBC. 2. 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 3. Other consolidations (less likely) - hemolysis (ruled out), CKD anemia (ruled out), bone marrow disorder (possible if refractory to iron repletion). Plan: Transfusion: Transfuse 2 units PRBCs on 03/20/2025 for symptomatic anemia. Iron repletion: Will arrange for Venofer 200 mg IV weekly x6. P.o. ferrous sulfate contraindicated in the setting of chronic constipation. We will refer patient to Gastroenterology for EGD/colonoscopy to rule out occult bleeding given through iron-deficiency. She will follow-up on 04/02 with labs prior to scheduled left knee replacement. ( done ) - h/h 04/02/25 9.3/29.5 All questions were answered to her satisfaction. [facility] Medical History GERD (gastroesophageal reflux disease) Urinary incontinence Pinched nerve Chronic osteomyelitis of foot Acute osteomyelitis of right calcaneus HTN (hypertension) Substance use disorder Surgical History Hx of foot surgery Hx of removal of cyst Family History Other Mental health disorder Substance use disorder Social History Housing: House Are you a primary care coordination manager to a significant other at home: No Do you presently have visiting nurse or other home services: Yes (EDUCATION PARAPROFESSIONAL) Alcohol intake: former Patient Tobacco Use Status: Never used Tobacco e-Cigarette/Vaping Use: Never Used Second Hand Smoke Exposure: No Substance Use Type: Heroin service: No Current occupational status: unemployed Cognitive needs: Yes (Walker, cane, Knee scooter) Hearing needs: No Vision needs: No Physical Exam Vital Signs: BMI result Body Mass Index 33.2 Assessment & Plan Assessment & Plan (1) Unilateral post-traumatic osteoarthritis, left knee: Code(s): M17.32 - Unilateral post-traumatic osteoarthritis, left knee Category: Medical Plan: Upon completion of the visit patient admitted to relapse last week with snorting heroin. At this time the patient surgery will be canceled until further notice. Patient is content with this plan. Orders: Orders XR knee LT 3V Today M25.562 - Pain in left knee Drug Screen Urine Today M17.32 - Unilateral post-traumatic osteoarthritis, left knee PT Evaluation and Treatment Today Z96.652 - Presence of left artificial knee joint Type and Screen Today Z01.818 - Encounter for other preprocedural examination Coding Level of Care Code Est Pt Level 3 (64195) Complex EM visit Add On G2211 Diagnoses Unilateral post-traumatic osteoarthritis, left knee M17.32
[2025-04-02 10:31] VITALS: BMI 33.2
--- OUTSIDE RECORDS SUMMARY | 2025-04-02 11:59 | XMS_ITS | Clinical Summary ---
Author Organization [address] [facility] Address [address] [place] [address] Phone Care Team Providers Care Cutter Wet Machine Name Role Phone Jose Lashell MUSSEL FARMER Primary Care Provider [phone] Social History Tobacco Use Types Packs/Day Years [...] 03/10/2024 Social Influencers of Health Screening 03/10/2024 Depression Screening 07/16/2024 COVID-19 Vaccine (1 - 2023-2 5 season) 2025 Influenza Vaccine (#1) 2025 HIB Vaccines Aged [...] age to complete this topic Care Teams Cutter Wet Machine Relationship Specialty Start Date End Date Lashell Garcia NP [address] [place] [address] PCP - General 10/10/23
--- OUTSIDE RECORDS SUMMARY | 2025-04-02 11:59 | XMS_ITS | Patient Health Record ---
Author Organization [facility] Talia meryl LalAden Address [address] [place] [address] Care Team Providers Care Wrapper Stitcher Name Role Phone Lashell Garcia Primary Care Provider Jairo Dejesus Unavailable [phone] Allergies No Known Allergies Reason For Referral [...] of skin (L97.521) Active confirmed Problem Lymphedema (57728803) Lymphedema (I89.0) Active confirmed Problem Malignant melanoma of right lower extremity including hip (C43.71) Active confirmed Problem Osteomyelitis (45096263) Osteomyelitis of right foot, unspecified type (M86.9) Active confirmed Plan Of Treatment Pending Test Test Name Order Date [id number] SKIN/TISSUE 04/19/2023 Insurance Providers Payer Name Payer Address Payer Phone Subscriber Number Group Number Insured Name Patient Relationship to Insured Coverage Start Date Coverage End Date [facility] [address] [place] [address] [id number] Sarah Everett Self - patient is the insured Medical (General) History Medical History History ICD Code Alzheimers disease Anemia Anxiety Back,Hip,and Knee pain Broken bones Depression High blood pressure Chicken pox
== END 2025-04-02 11:08 | disposition home or self-care (01) ==
LOC: HO.HOS 10:08
PROVIDERS: Visit Provider Physician Assistant
DX: M17.32 Unilateral post-traumatic osteoarthritis, left knee (principal)
CPT/HCPCS: 99213

== ENCOUNTER → 2025-04-02 10:13 | Outpatient (BNV) | payer OTHER, SELFPAY | PROVIDERS: Visit Provider Radiology Diagnostic Radiology | DX: M17.12 Unilateral primary osteoarthritis, left knee (principal) | CPT/HCPCS: 73562 ==

== ENCOUNTER 2025-04-06 09:27 | Outpatient (REF) | payer OTHER, SELFPAY ==
--- NOTE | ~2025-04-06 | US_ITS ---
EXAMINATION: US TRIPLEX LOWER EXTREMITY, RIGHT CLINICAL INFORMATION: Right lower extremity edema x1-2 months. COMPARISON: None available. TECHNIQUE: Color-flow triplex imaging with spectral analysis and compression Doppler were performed on the right lower extremity. FINDINGS: Respiratory variation, normal compression and augmented flow are noted throughout the right lower extremity. The visualized common femoral vein, superficial femoral vein, profunda femoral vein, popliteal vein and midcalf peroneal and posterior tibial venous segments show no evidence of deep venous thrombosis. There is no Key's cyst. There are reactive appearing lymph nodes in the right groin. US/US venous duplex LE RT IMPRESSION: No evidence of deep venous thrombosis involving the right lower extremity. Electronically signed by: Juventino Winston MD 04/06/2025 10:20 AM EDT
--- OUTSIDE RECORDS SUMMARY | 2025-04-06 11:09 | XMS_ITS | Clinical Summary ---
Author Organization [address] [facility] Address [address] [place] [address] Phone Care Team Providers Care Recovery Advocate Name Role Phone Jose Lashell SPORTS BOOK SERVER Primary Care Provider [phone] Social History Tobacco Use Types Packs/Day Years [...] age to complete this topic Care Teams Recovery Advocate Relationship Specialty Start Date End Date Lashell Garcia NP [address] [place] [address] PCP - General 10/10/23
--- OUTSIDE RECORDS SUMMARY | 2025-04-06 11:09 | XMS_ITS | Patient Health Record ---
Author Organization [facility] Talia meryl LalAden Address [address] [facility] [place] [address] Care Team Providers Care Wood Patternmaker Name Role Phone Lashell Garcia Primary Care Provider Jairo Dejesus Unavailable [phone] Allergies No Known Allergies Reason For Referral [...] of skin (L97.521) Active confirmed Problem Lymphedema (25040740) Lymphedema (I89.0) Active confirmed Problem Malignant melanoma of right lower extremity including hip (C43.71) Active confirmed Problem Osteomyelitis (65396307) Osteomyelitis of right foot, unspecified type (M86.9) Active confirmed Plan Of Treatment Pending Test Test Name Order Date [id number] SKIN/TISSUE 04/19/2023 Insurance Providers Payer Name Payer Address Payer Phone Subscriber Number Group Number Insured Name Patient Relationship to Insured Coverage Start Date Coverage End Date [facility] [address] [place] [address] [phone] [id number] Sarah Everett Self - patient is the insured Medical (General) History Medical History History ICD Code Alzheimers disease Anemia Anxiety Back,Hip,and Knee pain Broken bones Depression High blood pressure Chicken pox
== END 2025-04-06 09:28 | disposition home or self-care (01) ==
LOC: HO.US 09:27
PROVIDERS: Visit Provider Nurse Practitioner Family
DX: R60.0 Localized edema (principal)
CPT/HCPCS: 93971

== ENCOUNTER → 2025-04-06 09:29 | Outpatient (BNV) | payer OTHER, SELFPAY | PROVIDERS: Visit Provider Radiology Diagnostic Radiology | DX: R60.0 Localized edema (principal) | CPT/HCPCS: 93971 ==

== ENCOUNTER 2025-06-24 15:24 | Outpatient (AMB) | payer OTHER, SELFPAY ==
--- NOTE | 2025-06-24 15:36 | A.OFFPC_ITS ---
Vital Signs 06/24/25 15:40 Height 5 ft Weight 177 lb 11.081 oz BMI 34.7 BP 122/78 Blood Pressure Location Lt brachial Position Sitting Pulse 77 Pulse Source Pulse Oximeter Temp 96.9 F Temp Source Temporal Artery Scan Pulse Oximetry (%) 92 Oxygen Delivery Method Room Air Intake Visit Reasons: f/u chronic conditions Intake Note: Patient is here to follow up on Chronic conditions. Spectrographer Required: No Crimping Machine Operator For Metal: Not Required per policy Accompanied by: Self / Same As Patient Allergies doxycycline Allergy (Intermediate, Verified 06/24/25 15:40) Hives hydroxyzine Allergy (Verified 06/24/25 15:40) Hives prednisone Allergy (Verified 06/24/25 15:40) psychotic episodes Medication List - Last Reconciled 06/24/25 by Virgen Momin PA-C acetaminophen 500 mg PO Q6H PRN celecoxib 100 mg PO BID cholecalciferol (vitamin D3) 50 mcg PO DAILY clonidine HCl 0.1 mg PO BID dextroamphetamine-amphetamine 7.5 mg (Adderall) 7.5 mg PO DAILY [Folding Front Wheeled walker Duration: 99 days] lidocaine 5% 1 patch topical DAILY lorazepam 0.5 mg PO BID PRN methadone 80 mg PO DAILY@0600 methadone 90 mg PO DAILY@1700 polyethylene glycol 3350 (Miralax) 17 grams PO DAILY potassium chloride ER 20 mEq PO DAILY potassium chloride ER 1 tab PO DAILY Tobacco use date assessed: 06/24/25 Dental Screening Dental Screen Date: 02/11/25 HPI f/u chronic conditions HPI Details 55-year-old female with past medical his tory of hypertension, anxiety, substance use disorder on methadone by [facility] Krueger last seen 01/2025 coming in for follow up. In review of the notes, patient was seen by ortho 03/2025 for pre operative visit surgery was postponed at that time. Presenting with fatigue and for chronic disease management. The patient reports she has been struggling with relapse, stopping and starting use. She states she last used over the weekend. She is followed by [facility] and is on methadone, with the morning dose at 80 mg and the evening dose at 90 mg. Her knee surgery was postponed due to the relapse and will be reconsidered in six months from March. She is currently on a combination pill of losartan-hydrochlorothiazide, but reports her blood pressure has been good. The patient reports she sleeps horribly, which she relates to being at her mother's house. She has seen a family mediator and needs to schedule iron infusions, but has had to cancel previous appointments. The patient has a history of toenail fungus and is currently unable to perform self-care for her toenails, which she describes as a mess and horrible. The patient reports feeling crooked due to her back. She thinks she has nerve damage in her hand, which began after she felt a shock across her back and down her arm while getting onto her knee scooter. She was previously referred for an MRI and to a back specialist at [facility] but did not follow through. [facility] Medical History GERD (gastroesophageal reflux disease) Urinary incontinence Pinched nerve Chronic osteomyelitis of foot Acute osteomyelitis of right calcaneus HTN (hypertension) Substance use disorder Surgical History Hx of foot surgery Hx of removal of cyst Family History Other Mental health disorder Substance use disorder Social History Housing: House Are you a primary assisted living care manager to a significant other at home: No Do you presently have visiting nurse or other home services: Yes (IS ANALYST) Alcohol intake: former Patient Tobacco Use Status: Never used Tobacco e-Cigarette/Vaping Use: Never Used Second Hand Smoke Exposure: No Substance Use Type: Heroin service: No Current occupational status: unemployed Cognitive needs: Yes (Walker, cane, Knee scooter) Hearing needs: No Vision needs: No Questionnaire Thrive Questionnaire Date Thrive assessed: 12/19/24 I am a: Patient What is your living situation today?: I have a steady place to live Within the past 12 months, did the food you bought not last and you didn't have the money to get more?: Never true Within the past 12 months, did you worry whether your food would run out before you got money to buy more?: Never true Do you have trouble paying for medicines?: No Do you have trouble getting transportation to medical appointments?: No Do you have trouble paying your heating and electricity bill?: No Do you have trouble taking care of your child, family member or friend?: No Do you have trouble with day-to-day activities such as bathing, preparing meals, shopping, managing finances, etc.?: Yes Are you currently unemployed and looking for a job?: I choose not to answer this question Are you interested in more education?: Yes Please select the resources that you would like help with: Daily support Currently or been in a relationship where the following occur: No concerns reported THRIVE Score: 0 ZACHARY-7 AMB Questionnaire ZACHARY-7 Date ZACHARY - 7 assessed: 02/11/25 Source: Developed by Drs. Santiago Salazar, Chel Mehta, Niko Ahuja and colleagues, with an educational garo from [employer]. Review of Systems Const Denies body aches, Denies chills, Denies fever(s), Denies headache(s) and Denies poor appetite Eyes Reports no additional complaints ENT Denies dizziness and Denies headache(s) Card Denies chest pain, Denies edema, Denies lightheadedness and Denies dyspnea Resp Denies dyspnea GI Denies abdominal pain, Denies nausea and Denies vomiting Reports no additional complaints Musc Reports no additional complaints and Denies abnormal gait Skin/Breast Reports system reviewed and no additional complaints, except as documented Neuro Denies abnormal gait, Denies dizziness and Denies headache(s) Psych Reports no additional complaints Physical exam (Primary Care) Tobacco/Smoking Status: Tobacco use Status Tobacco use date assessed 02/11/25 06/24/25 15:37 Patient Tobacco Use Status Never used Tobacco 06/24/25 15:37 e-Cigarette/Vaping Use Never Used 06/24/25 15:37 Thrive Assessment: Date of Thrive Assessment Date Thrive assessed 12/19/24 06/24/25 15:37 Currently or been in a relationship where the following occur: No concerns reported Const General: cooperative, healthy appearing, comfortable and no acute distress Orientation/consciousness: patient oriented x3 HENMT Head: Yes normocephalic Ears: hearing grossly normal bilaterally General nose exam: Normal external nose present Eyes General: appearance normal, both eyes and all related structures Conjunctivae: conjunctivae normal Neck Neck: Yes full ROM and Yes no lymphadenopathy Resp Effort & Inspection: normal respiratory effort Auscultation: clear to auscultation bilaterally, no crackles, no rales, no rhonchi and no wheezes Cardio Rate: regular rate Rhythm: regular rhythm Skin General skin exam: no rashes or lesions noted Neuro General: patient oriented x3 Gait exam (Neuro): Normal gait present Extrem General: Yes normal to inspection, Yes full ROM and No edema Psych Affect: normal affect Attitude: cooperative Insight: Good insight present (Psych) Judgement: Good judgement present (Psych) Coding Level of Care Code Est Pt Level 4 (83631) Diagnoses Anxiety F41.9 Substance use disorder F19.90 HTN (hypertension) I10 Toenail fungus B35.1 Incontinence in female R32 Anemia D64.9 Upper back pain M54.9 Unilateral post-traumatic osteoarthritis, left knee M17.32 Assessment & Plan Assessment & Plan (1) Anxiety: Comment: Counselor Cheo Rx for Lorazepam Clary Valles Code(s): F41.9 - Anxiety disorder, unspecified Category: Medical Plan: Continue to follow with medication provider and counselor. (2) Substance use disorder: Comment: through [facility] [place] Code(s): F19.90 - Other psychoactive substance use, unspecified, uncomplicated Category: Medical Plan: The patient will continue to follow with [facility] for medication-assisted treatment. Her methadone dose was noted to have increased to 80 mg in the morning and 90 mg in the evening. (3) HTN (hypertension): Code(s): I10 - Essential (primary) hypertension Category: Medical Plan: The patient will discontinue losartan-hydrochlorothiazide. She will start clonidine, initially once at bedtime, to help with blood pressure and sleep. She is to monitor her blood pressure at home for a week and send a message through the patient portal. If her blood pressure remains high, she should increase the clonidine to twice daily. A follow-up visit is scheduled in two months to re- check blood pressure. (4) Toenail fungus: Code(s): B35.1 - Tinea unguium Category: Medical Plan: Referral was placed to Podiatry at patient request today. (5) Incontinence in female: Code(s): R32 - Unspecified urinary incontinence Category: Medical Plan: Patient has a appointment with urology coming up later this month. (6) Anemia: Code(s): D64.9 - Anemia, unspecified Category: Medical Plan: She is to reschedule her appointment with hematology for iron infusions for iron-deficiency anemia. (7) Upper back pain: Code(s): M54.9 - Dorsalgia, unspecified Category: Medical Plan: The patient will first see a back specialist. She will check if her previous referral from [facility] to [facility] is still active; if not, a new referral will be provided. (8) Unilateral post-traumatic osteoarthritis, left knee: Code(s): M17.32 - Unilateral post-traumatic osteoarthritis, left knee Category: Medical Plan: For knee pain, ibuprofen will be discontinued and Celebrex will be trialed, taken up to twice a day with food. If Celebrex is ineffective, meloxicam may be considered as an alternative. Lidocaine patches have been prescribed for topical pain relief on the knee or back. Regarding her postponed knee surgery, the patient was informed that the surgeon at [facility] will reconsider in September, six months post-relapse. The patient may explore getting the surgery at [facility] and will let the office know if a referral is needed. Plan This note was constructed using voice recognition software. While every effort has been made to ensure accuracy and radio sales account executive, still areas may have been included sometimes these areas may affect the content or meeting of the given symptoms. Total time spent caring for the patient today was 20 minutes. This includes time spent before the visit reviewing the chart, time spent during the visit, and time spent after the visit and documentation. Patient was informed and verbally consented to the use of an ambient scribe for clinic note documentation during this visit. Orders: Referrals Podiatry Referral B35.1 - Tinea unguium Medications: New clonidine HCl 0.1 mg PO BID 60 tabs 0RF lidocaine 5% leave on most painful area for up to 12 hrs 1 patch topical DAILY 30 ea 0RF celecoxib 100 mg PO BID 60 caps 1RF Discontinued losartan-hydrochlorothiazide 50-12.5 mg Discontinued Reason: Patient no longer taking 1 tab PO DAILY 90 tabs 0RF ibuprofen Discontinued Reason: Patient no longer taking 600 mg PO TID PRN 90 tabs 0RF Severe Pain (Scale Score 7-10)
[2025-06-24 15:40] VITALS: BP 122/78; PULSE 77; TEMP 36.1; O2SAT 92; BMI 34.7
--- OUTSIDE RECORDS SUMMARY | 2025-06-24 23:55 | XMS_ITS | Clinical Summary ---
Author Organization [address] [facility] Address [address] [place] [address] Phone Care Team Providers Care Technical Maintenance Specialist Name Role Phone JoseLashell GEOCHEMISTRY TEACHER Primary Care Provider [phone] Social History Tobacco Use Types Packs/Day Years [...] Depression Screening 07/16/2024 COVID-19 Vaccine (1 - 2024-2 6 season) 2025 Influenza Vaccine (#1) 2025 RSV [...] age to complete this topic Care Teams Technical Maintenance Specialist Relationship Specialty Start Date End Date Lashell Garcia NP [address] [place] [address] PCP - General 10/10/23
--- OUTSIDE RECORDS SUMMARY | 2025-06-24 23:56 | XMS_ITS | Patient Health Record ---
Author Organization [facility] Talia meryl [place] Address [address] [place] [address] Care Team Providers Care Corrections Sergeant Name Role Phone Lashell Garcia Primary Care Provider UnavailJairo Quezada Unavailable [phone] Allergies No Known Allergies Reason For Referral [...] of skin (L97.521) Active confirmed Problem Lymphedema (41036371) Lymphedema (I89.0) Active confirmed Problem Malignant melanoma of right lower extremity including hip (C43.71) Active confirmed Problem Osteomyelitis (33295283) Osteomyelitis of right foot, unspecified type (M86.9) Active confirmed Plan Of Treatment Pending Test Test Name Order Date [id number] SKIN/TISSUE 04/19/2023 Insurance Providers Payer Name Payer Address Payer Phone Subscriber Number Group Number Insured Name Patient Relationship to Insured Coverage Start Date Coverage End Date [facility] [address] [place] [address] [id number] Sarah Everett Self - patient is the insured Medical (General) History Medical History History ICD Code Alzheimers disease Anemia Anxiety Back,Hip,and Knee pain Broken bones Depression High blood pressure Chicken pox
== END 2025-06-24 16:16 | disposition home or self-care (01) ==
LOC: HO.HMCH 15:25
DX: F41.9 Anxiety disorder, unspecified (principal); F19.90 Other psychoactive substance use, unspecified, uncomplicated; I10 Essential (primary) hypertension; B35.1 Tinea unguium; R32 Unspecified urinary incontinence; D64.9 Anemia, unspecified; M54.9 Dorsalgia, unspecified; M17.32 Unilateral post-traumatic osteoarthritis, left knee

== ENCOUNTER → 2025-06-24 15:24 | Outpatient (BNVA) | payer OTHER, SELFPAY | DX: I10 Essential (primary) hypertension (principal); B35.1 Tinea unguium; R32 Unspecified urinary incontinence; F41.9 Anxiety disorder, unspecified; D64.9 Anemia, unspecified; M54.9 Dorsalgia, unspecified; M17.32 Unilateral post-traumatic osteoarthritis, left knee | CPT/HCPCS: 99212 ==